=== PATIENT | male | born 1955 | race Caucasian/White ===

== ENCOUNTER 2023-08-27 19:54 | Inpatient (IN) ==
[2023-08-27] MEDS ORDERED: ONDANSETRON INJ 2 MG/ML 2 ML VIAL IV STA (20:10)
[2023-08-27] MEDS ORDERED: SODIUM CHLORIDE 0.9% 1,000 ML IV STA (20:10)
--- NOTE | 2023-08-27 20:13 | Emergency Department Note ---
Impression & Plan HOMERO (acute kidney injury), A-fib, Gastroenteritis, Elevated lactic acid level, Acute hyponatremia ED Provider Note Provider: Cedric Lemus MD DATE OF SERVICE: 08/27/2023 CHIEF COMPLAINT: Abdominal pain, nausea and vomiting, weakness, diarrhea HISTORY OF PRESENT ILLNESS: Patient is a 68-year-old gentleman history of arthritis as well as atrial fibrillation on Eliquis presenting here at the behest of his daughter today for evaluation. Patient evidently developed 2 days ago pain in the mid to upper abdomen. Radiates to the back. Has associated nausea as well as some vomiting. Has had some nonbloody diarrhea. Denies falls. Denies sick contact. No fevers reported. Denies difficulty breathing or chest pain. Feels lightheaded and weak however. Daughter came up from [place] and convinced him to come to the ER tonight. PAST MEDICAL HISTORY: As noted above MEDICATIONS: Reviewed home medications includes Humira SOCIAL HISTORY: PHYSICAL EXAM: GENERAL: alert and oriented in no acute distress on stretcher but fatigued in appearance and somewhat pale. Head: normocephalic and atraumatic EYES: No injection, discharge or icterus. NECK: Trachea midline. Supple. ENT: Mucous membranes pink and moist. LUNGS: Airway patent. No retractions or tachypnea HEART: Regular rate and rhythm. No chest wall tenderness ABDOMEN: Soft with some mild to moderate epigastric discomfort. No lower abdominal discomfort. SKIN: Acyanotic, somewhat cool however with dry skin. EXTREMITIES: Without swelling, tenderness or deformity NEUROLOGICAL: No focal deficits. No aphasia. No facial droop or slurred speech. EK bpm atrial fibrillation. QTc 436. No acute ST segment elevation with some slight lateral ST depression. CONTINUOUS CARDIAC MONITORING: was ordered and showed a heart rate of 100s-110s bpm in atrial fibrillation 1 view chest x-ray per my interpretation: No evidence of significant effusion, pulmonary edema, pneumonia, pneumothorax, or cardiomegaly. Patient's laboratory studies and imaging reviewed. Differential includes Appendicitis, obstruction, mesenteric ischemia, aortic pathology, inflammatory bowel disease, renal colic, PUD, pancreatitis, biliary pathology, hernia, volvulus, constipation, as well as other pathologies. IMPRESSION/MEDICAL DECISION MAKING: Patient with some mid upper abdominal discomfort. Several days of GI symptoms with nausea vomiting and diarrhea. Reportedly nonbloody. Somewhat hypotensive in triage but improved upon evaluation in the room. Pale and weak in appearance. [id number] blood work obtained concerning for significantly elevated creatinine. Formal labs pending. Sent cultures. Lactic completed with an elevated lactate of 3.3. Given IV fluid hydration upon arrival and 2 L of normal saline ordered. Plan for a contrasted CT scan but with the elevated creatinine on i-STAT labs, switch to a noncontrast CT scan. Labs returning showed no evidence of significant anemia or leukocytosis which is somewhat reassuring against severe sepsis or GI bleed. Formal chemistries returned with a sodium of 128, potassium of 5.6, anion gap of 17, BUN of 48, creatinine of 3.95 with normal AST and ALT. Normal bilirubin 0.9. Normal lipase. Avoiding aggressive rate control as the patient seems significantly dehydrated. Do not see evidence on imaging of significant urine retention and do not feel Gutierrez is emergently began at this time as I do not see a postobstructive finding. Troponin normal. Did complete a chest x-ray as he has some borderline oxygen saturations. Does not seem that consistent with pneumonia. Very distant former smoker. Discussed with patient and family findings. Discussed with the hospitalist for further care here which family is agreeable to. Believe his illnesses likely driven primarily by dehydration and gastroenteritis and doubt a systemic sepsis picture at this time. DIAGNOSIS: Acute kidney injury, A-fib, gastroenteritis, hyponatremia DISPOSITION: Hospitalist will evaluate Patient was agreeable with this plan. Past Med/Surg History Medical History (Updated 08/27/23 @ 23:24 by Cedric Lemus M.D.) A-fib HTN (hypertension) Rheumatoid arthritis Surgical History (Updated 08/27/23 @ 22:14 by Sariah Knox DO) No significant past surgical history Family History (Updated 08/27/23 @ 22:14 by Sariah Knox DO) Other No significant family history Social History (Updated 08/27/23 @ 22:14 by Sariah Knox DO) Smoking Status: Former smoker Tobacco Type: Cigarettes Hx Alcohol Use: Yes Hx Substance Use: No Preferred Language: [place] Feels Safe at Home: Yes Allergies Allergies Allergy/AdvReac Type Severity Reaction Status Date / Time No Known Allergies Allergy Unverified 08/27/23 21:13 Home Meds Home Medications Medication Instructions Recorded Confirmed adalimumab 40 mg/0.8 mL 40 mg subcut UD 01/17/23 08/27/23 subcutaneous pen kit (Humira Pen) lisinopril 40 mg tablet 40 mg PO DAILY 01/17/23 08/27/23 prednisone 5 mg tablet 5 mg PO DAILY 01/17/23 08/27/23 sertraline 50 mg tablet 50 mg PO DAILY 01/17/23 08/27/23 amlodipine 10 mg tablet 10 mg PO DAILY 08/27/23 08/27/23 apixaban 5 mg tablet (Eliquis) 5 mg PO BID 08/27/23 08/27/23 metoprolol succinate 100 mg 100 mg PO BID 08/27/23 08/27/23 tablet,extended release 24 hr Results & Data (ED) Vital Signs Vital Signs - 24 hr 08/27/23 19:58 08/27/23 20:06 08/27/23 20:10 Temperature Temperature Source Pulse Rate 100 H 102 H Pulse Rate [Apical] 99 H Pulse Rate from SpO2 Sensor Pulse Rhythm Irregular Pulse Rhythm [Apical] Irregular Respiratory Rate 18 20 22 Respiratory Effort / Characteristics Non-Labored Spontaneous Respiratory Depth Normal Respiratory Pattern Regular Blood Pressure 76/58 L Blood Pressure [Right Arm] 106/86 Blood Pressure Mean 64 Blood Pressure Mean [Right Arm] 92 Blood Pressure Position Sitting Blood Pressure Position [Right Arm] Sitting Pulse Oximetry 96 94 95 Oxygen Delivery Method Room Air Room Air Room Air Oxygen Flow Rate Sepsis Recent Fever Within 48 Hours No Sepsis New/Unexplained Change in Mental Status N/A Sepsis Action Taken by Nursing Physician Notified Oxygen Flow Rate - Titration Pulse Oximetry Post Tiitration 08/27/23 20:44 08/27/23 20:52 08/27/23 21:36 Temperature 36.6 C 36.6 C Temperature Source Rectal Rectal Pulse Rate Pulse Rate [Apical] 115 H 112 H Pulse Rate from SpO2 Sensor Pulse Rhythm Pulse Rhythm [Apical] Irregular Irregular Respiratory Rate 20 20 Respiratory Effort / Characteristics Non-Labored Non-Labored Respiratory Depth Normal Normal Respiratory Pattern Regular Regular Blood Pressure Blood Pressure [Right Arm] 84/61 L 109/69 Blood Pressure Mean Blood Pressure Mean [Right Arm] 68 82 Blood Pressure Position Blood Pressure Position [Right Arm] Sitting Pulse Oximetry 96 94 88 L Oxygen Delivery Method Room Air Room Air Room Air Nasal Cannula Oxygen Flow Rate Sepsis Recent Fever Within 48 Hours Sepsis New/Unexplained Change in Mental Status Sepsis Action Taken by Nursing Oxygen Flow Rate - Titration 2 Pulse Oximetry Post Tiitration 93 08/27/23 22:30 08/27/23 21:00 08/27/23 21:30 Temperature Temperature Source Pulse Rate 109 H 101 H Pulse Rate [Apical] Pulse Rate from SpO2 Sensor 108 H 96 H Pulse Rhythm Pulse Rhythm [Apical] Irregular Respiratory Rate 19 23 Respiratory Effort / Characteristics Respiratory Depth Respiratory Pattern Blood Pressure 107/67 103/65 Blood Pressure [Right Arm] Blood Pressure Mean 80 77 Blood Pressure Mean [Right Arm] Blood Pressure Position Blood Pressure Position [Right Arm] Pulse Oximetry 94 96 Oxygen Delivery Method Nasal Cannula Oxygen Flow Rate 2 Sepsis Recent Fever Within 48 Hours Sepsis New/Unexplained Change in Mental Status Sepsis Action Taken by Nursing Oxygen Flow Rate - Titration Pulse Oximetry Post Tiitration 08/27/23 22:00 08/27/23 22:30 Temperature Temperature Source Pulse Rate 106 H 99 H Pulse Rate [Apical] Pulse Rate from SpO2 Sensor 104 H 96 H Pulse Rhythm Pulse Rhythm [Apical] Respiratory Rate 19 19 Respiratory Effort / Characteristics Respiratory Depth Respiratory Pattern Blood Pressure 123/81 128/84 Blood Pressure [Right Arm] Blood Pressure Mean 95 98 Blood Pressure Mean [Right Arm] Blood Pressure Position Blood Pressure Position [Right Arm] Pulse Oximetry 96 95 Oxygen Delivery Method Nasal Cannula Nasal Cannula Oxygen Flow Rate 2 2 Sepsis Recent Fever Within 48 Hours Sepsis New/Unexplained Change in Mental Status Sepsis Action Taken by Nursing Oxygen Flow Rate - Titration Pulse Oximetry Post Tiitration Laboratory Data 08/27/23 20:08 08/27/23 20:08 Lab Results 08/27/23 08/27/23 08/27/23 Range/Units 20:08 20:08 20:08 WBC 7.16 (4.8-10.8) K/ul RBC 5.27 (4.70-6.10) M/uL Hgb 15.5 (14.0-18.0) g/dl POC Hgb (14.0-18.0) g/dl Hct 48.0 (42.0-52.0) % POC Hct (42-52) % MCV 91.1 (80.0-100.0) fL MCH 29.4 (25.0-34.0) pg MCHC 32.3 (32.0-36.0) g/dL RDW Std Deviation 63.1 H (36.4-46.3) fL RDW Coeff of Alana 19.2 H (11.5-14.5) % Plt Count 539 H (130-400) K/uL MPV 9.2 L (9.4-12.4) fL Immature Gran % (Auto) 0.8 % Neut % (Auto) 75.2 % Lymph % (Auto) 15.2 % Maries % (Auto) 5.7 % Eos % (Auto) 2.5 % Baso % (Auto) 0.6 % Neut # (Auto) 5.38 (1.40-6.50) K/uL Lymph # (Auto) 1.09 L (1.20-3.40) K/uL Maries # (Auto) 0.41 (0.11-0.59) K/uL Eos # (Auto) 0.18 (0.00-0.50) K/uL Baso # (Auto) 0.04 (0.00-0.20) K/uL Immature Gran # (Auto) 0.06 (0.01-0.20) K/uL PT 12.3 H (9.0-12.0) Seconds INR 1.1 (0.9-1.1) POC Sodium (135-144) mmol/L Sodium 128 L (136-145) mmol/L POC Potassium (3.3-5.0) mmol/L Potassium 5.6 H (3.5-5.1) mmol/L POC Chloride (101-112) mmol/L Chloride 92 L (98-107) mmol/L Carbon Dioxide 19 L (21-32) mmol/L POC Total CO2 (24-31) mmol/L Anion Gap 17 H (3-11) POC Anion Gap (16-25) mmol/L POC BUN (7-18) mg/dl BUN 48 H (6-23) mg/dl Creatinine 3.95 H (0.6-1.4) mg/dl POC Creatinine (0.6-1.3) mg/dl Est Cr Clr Drug Dosing Not Reportable Est GFR ( Amer) 16.7 ml/min Est GFR (Non-Af Amer) 14.4 ml/min BUN/Creatinine Ratio 12.2 (10-20) Glucose 164 H (70-99(Fasting)) mg/dl POC Glucose (other) (70-99) mg/dl Lactate (0.4-2.0) mmol/L Calcium 10.1 (8.6-10.3) mg/dl POC Ioniz Calcium Hakan (1.12-1.32) mmol/l Total Bilirubin 0.9 (0.2-1.0) mg/dl AST 16 (13-39) U/L ALT 19 (7-52) U/L Alkaline Phosphatase 353 H (34-104) U/L Troponin I High Sens 6.8 (0-20) pg/ml Total Protein 11.9 H (6.0-8.3) gm/dl Albumin 4.6 (3.4-5.0) gm/dl Globulin 7.3 H (2.5-4.0) gm/dl Albumin/Globulin Ratio 0.6 L (0.9-2) Lipase 25 (11-82) U/L SARS-CoV-2, RNA, NAAT (NEGATIVE) 08/27/23 08/27/23 08/27/23 Range/Units 20:08 20:13 20:40 WBC (4.8-10.8) K/ul RBC (4.70-6.10) M/uL Hgb (14.0-18.0) g/dl POC Hgb 17.7 (14.0-18.0) g/dl Hct (42.0-52.0) % POC Hct 52 (42-52) % MCV (80.0-100.0) fL MCH (25.0-34.0) pg MCHC (32.0-36.0) g/dL RDW Std Deviation (36.4-46.3) fL RDW Coeff of Alana (11.5-14.5) % Plt Count (130-400) K/uL MPV (9.4-12.4) fL Immature Gran % (Auto) % Neut % (Auto) % Lymph % (Auto) % Maries % (Auto) % Eos % (Auto) % Baso % (Auto) % Neut # (Auto) (1.40-6.50) K/uL Lymph # (Auto) (1.20-3.40) K/uL Maries # (Auto) (0.11-0.59) K/uL Eos # (Auto) (0.00-0.50) K/uL Baso # (Auto) (0.00-0.20) K/uL Immature Gran # (Auto) (0.01-0.20) K/uL PT (9.0-12.0) Seconds INR (0.9-1.1) POC Sodium 133 L (135-144) mmol/L Sodium (136-145) mmol/L POC Potassium 5.8 H (3.3-5.0) mmol/L Potassium (3.5-5.1) mmol/L POC Chloride 101 (101-112) mmol/L Chloride (98-107) mmol/L Carbon Dioxide (21-32) mmol/L POC Total CO2 23 L (24-31) mmol/L Anion Gap (3-11) POC Anion Gap 15.0 L (16-25) mmol/L POC BUN 47 H (7-18) mg/dl BUN (6-23) mg/dl Creatinine (0.6-1.4) mg/dl POC Creatinine 4.8 H* (0.6-1.3) mg/dl Est Cr Clr Drug Dosing Est GFR ( Amer) ml/min Est GFR (Non-Af Amer) ml/min BUN/Creatinine Ratio (10-20) Glucose (70-99(Fasting)) mg/dl POC Glucose (other) 167 H (70-99) mg/dl Lactate 3.3 H* (0.4-2.0) mmol/L Calcium (8.6-10.3) mg/dl POC Ioniz Calcium Hakan 1.02 L (1.12-1.32) mmol/l Total Bilirubin (0.2-1.0) mg/dl AST (13-39) U/L ALT (7-52) U/L Alkaline Phosphatase (34-104) U/L Troponin I High Sens (0-20) pg/ml Total Protein (6.0-8.3) gm/dl Albumin (3.4-5.0) gm/dl Globulin (2.5-4.0) gm/dl Albumin/Globulin Ratio (0.9-2) Lipase (11-82) U/L SARS-CoV-2, RNA, NAAT NEGATIVE (NEGATIVE) Administered Medications Discontinued Medications Fentanyl Citrate (Fentanyl Citrate Pf 100 Mcg/2 Ml Vial) 25 mcg IV NOW STA Stop: 08/27/23 20:45 Last Admin: 08/27/23 20:48 Dose: 25 mcg Documented By: QGV Fentanyl Citrate (Fentanyl Citrate Pf 100 Mcg/2 Ml Vial) 50 mcg IV NOW STA Stop: 08/27/23 21:19 Last Admin: 08/27/23 21:30 Dose: 50 mcg Documented By: QGV Sodium Chloride (Nss) 1,000 mls @ 999 mls/hr IV .Q1H1M STA Stop: 08/27/23 21:10 Last Infusion: 08/27/23 21:30 Dose: 0 mls/hr Documented By: Admin: 08/27/23 20:15 Dose: 999 mls/hr Documented By: QGV Sodium Chloride (Nss) 1,000 mls @ 999 mls/hr IV .Q1H1M ONE Stop: 08/27/23 21:15 Last Infusion: 08/27/23 21:30 Dose: 0 mls/hr Documented By: Admin: 08/27/23 20:32 Dose: 999 mls/hr Documented By: QGV Ondansetron HCl (Ondansetron Inj 2 Mg/Ml 2 Ml Vial) 4 mg IV NOW STA Stop: 08/27/23 20:11 Last Admin: 08/27/23 20:15 Dose: 4 mg Documented By: QGV Imaging Data Radiologist's Impression: Abdomen/Pelvis CT 08/27/23 20:16 Exam(s): CT ABDOMEN + PELVIS Without Contrast EXAM: CT Abdomen and Pelvis Without Intravenous Contrast CLINICAL HISTORY: Reason for exam: abd pain, mid, n/v/d. TECHNIQUE: Axial computed tomography images of the abdomen and pelvis without intravenous contrast. CTDI is 25.57 mGy and DLP is 1357.27 mGy-cm. Automated exposure control was utilized for the study. A dose lowering technique was utilized adhering to the principles of ALARA. COMPARISON: No relevant prior studies available. FINDINGS: Lung bases: Atelectasis at the lung bases. ABDOMEN: Liver: Unremarkable. Gallbladder and bile ducts: Cholelithiasis without cholecystitis. Pancreas: Unremarkable. Spleen: Unremarkable. Adrenals: Unremarkable. Kidneys and ureters: Unremarkable. No obstructing stones. No hydronephrosis. Stomach and bowel: Liquid stool within the colon suggestive of a nonspecific diarrheal illness. PELVIS: Appendix: No findings to suggest acute appendicitis. Bladder: Unremarkable. Reproductive: Unremarkable as visualized. ABDOMEN and PELVIS: Intraperitoneal space: Unremarkable. No free air. No significant fluid collection. Bones/joints: No acute fracture. Soft tissues: Unremarkable. Vasculature: Unremarkable. Lymph nodes: Unremarkable. IMPRESSION: 1. Liquid stool within the colon suggestive of a nonspecific diarrheal illness. 2. Cholelithiasis without cholecystitis. Electronically signed by: Bandar Beebe MD 08/27/23 21:30 PM Discharge Plan Visit Data Chief Complaint: Illness Stated Complaint: ABDOMINAL PAIN, CHANGE IN MENTAL STATUS ED Provider: Cedric Lemus Discharge Problem: HOMERO (acute kidney injury), A-fib, Gastroenteritis, Elevated lactic acid level, Acute hyponatremia Patient Disposition: Being Evaluated by Hospitalist Condition: Fair Discharge Instructions Interventions: ED Discharge Assessment Last Done: 08/27/23 23:21 Forms Stand Alone Forms: My [facility] [employer] Prescriptions Prescriptions: No Action Eliquis 5 mg tablet 5 mg PO BID metoprolol succinate 100 mg tablet extended release 24 hr 100 mg PO BID amlodipine 10 mg tablet 10 mg PO DAILY prednisone 5 mg tablet 5 mg PO DAILY lisinopril 40 mg tablet 40 mg PO DAILY sertraline 50 mg tablet 50 mg PO DAILY Humira Pen 40 mg/0.8 mL pen injector kit 40 mg SUBCUT UD Referrals Referrals: Tali Doe PA-C [Primary Care Provider] -
[2023-08-27] MEDS ORDERED: SODIUM CHLORIDE 0.9% 1,000 ML IV ONE (20:15)
[2023-08-27 20:23] LABS: Basophils # (auto) 0.04 K/uL (0.00-0.20); Basophils % (auto) 0.6 %; Eosinophils # (auto) 0.18 K/uL (0.00-0.50); Eosinophils % (auto) 2.5 %; Hemoglobin 15.5 g/dl (14.0-18.0); Immature Granulocytes # (auto) 0.06 K/uL (0.01-0.20); Immature Granulocytes % (auto) 0.8 %; Lymphocytes # (auto) 1.09 K/uL (1.20-3.40); Lymphocytes % (auto) 15.2 %; Mean Corpuscular Hemoglobin 29.4 pg (25.0-34.0); Mean Corpuscular Hgb Conc 32.3 g/dL (32.0-36.0); Mean Corpuscular Volume 91.1 fL (80.0-100.0); Mean Platelet Volume 9.2 fL (9.4-12.4); Monocytes # (auto) 0.41 K/uL (0.11-0.59); Monocytes % (auto) 5.7 %; Neutrophils # (auto) 5.38 K/uL (1.40-6.50); Neutrophils % (auto) 75.2 %; Platelet Count 539 K/uL (130-400); RDW Coefficient of Variation 19.2 % (11.5-14.5); RDW Standard Deviation 63.1 fL (36.4-46.3); Red Blood Count 5.27 M/uL (4.70-6.10); White Blood Count 7.16 K/ul (4.8-10.8)
[2023-08-27 20:26] LABS: iSTAT Creatinine 4.8 mg/dl (0.6-1.3); iSTAT Hemoglobin 17.7 g/dl (14.0-18.0); iSTAT Ionized Calcium 1.02 mmol/l (1.12-1.32); iSTAT Potassium 5.8 mmol/L (3.3-5.0)
[2023-08-27 20:38] LABS: Alanine Aminotransferase 19 U/L (7-52); Albumin Globulin Ratio 0.6 (0.9-2); Albumin Level 4.6 gm/dl (3.4-5.0); Alkaline Phosphatase 353 U/L (34-104); Anion Gap 17 (3-11); Aspartate Aminotransferase 16 U/L (13-39); BUN Creatinine Ratio 12.2 (10-20); Bilirubin,Total 0.9 mg/dl (0.2-1.0); Blood Urea Nitrogen 48 mg/dl (6-23); Calcium 10.1 mg/dl (8.6-10.3); Carbon Dioxide 19 mmol/L (21-32); Chloride 92 mmol/L (98-107); Est GFR (African American) 16.7 ml/min; Est GFR (Non-African American) 14.4 ml/min; Globulin 7.3 gm/dl (2.5-4.0); Glucose 164 mg/dl (70-99(Fasting)); Lipase 25 U/L (11-82); Potassium 5.6 mmol/L (3.5-5.1); Sodium 128 mmol/L (136-145); Total Protein 11.9 gm/dl (6.0-8.3)
[2023-08-27] MEDS ORDERED: fentaNYL citrate PF 100 MCG/2 ML VIAL IV STA ×2 (20:44→21:18)
[2023-08-27 20:45] LABS: Troponin I High Sensitivity 6.8 pg/ml (0-20)
[2023-08-27 20:50] LABS: INR 1.1 (0.9-1.1); Prothrombin Time 12.3 Seconds (9.0-12.0)
--- NOTE | 2023-08-27 21:31 | CT Scan Report ---
Exam(s): CT ABDOMEN + PELVIS Without Contrast EXAM: CT Abdomen and Pelvis Without Intravenous Contrast CLINICAL HISTORY: Reason for exam: abd pain, mid, n/v/d. TECHNIQUE: Axial computed tomography images of the abdomen and pelvis without intravenous contrast. CTDI is 25.57 mGy and DLP is 1357.27 mGy-cm. Automated exposure control was utilized for the study. A dose lowering technique was utilized adhering to the principles of ALARA. COMPARISON: No relevant prior studies available. FINDINGS: Lung bases: Atelectasis at the lung bases. ABDOMEN: Liver: Unremarkable. Gallbladder and bile ducts: Cholelithiasis without cholecystitis. Pancreas: Unremarkable. Spleen: Unremarkable. Adrenals: Unremarkable. Kidneys and ureters: Unremarkable. No obstructing stones. No hydronephrosis. Stomach and bowel: Liquid stool within the colon suggestive of a nonspecific diarrheal illness. PELVIS: Appendix: No findings to suggest acute appendicitis. Bladder: Unremarkable. Reproductive: Unremarkable as visualized. ABDOMEN and PELVIS: Intraperitoneal space: Unremarkable. No free air. No significant fluid collection. Bones/joints: No acute fracture. Soft tissues: Unremarkable. Vasculature: Unremarkable. Lymph nodes: Unremarkable. IMPRESSION: 1. Liquid stool within the colon suggestive of a nonspecific diarrheal illness. 2. Cholelithiasis without cholecystitis. Electronically signed by: Bandar Beebe MD 08/27/23 21:30 PM
--- NOTE | 2023-08-27 21:57 | History & Physical Report ---
Date of Service August 27, 2023 Assessment & Plan (1) Gastroenteritis: Plan: 68yo male with 2 days of nausea, vomiting and diarrhea. Patient appears clinically dry on exam as well as labs. CT consistent with diarrheal illness. -Admit to medical -Check stool PCR for viral/bacterial causes -Check stool c. diff -Hydration with LR at 125mL/hr x 2L -Monitor electrolytes -Morphine as needed for abdominal pain -Zofran as needed for nausea (2) HOMERO (acute kidney injury): Plan: Patient with HOMERO. BUN=48, Cr=3.95. Last bloodwork on record from 01/17/23 revealed normal renal function with BUN of 22 and Cr of 1. Suspect multifactorial - volume depletion in setting of vomiting and diarrhea, decreased oral intake as well as medication effects - patient on Lisinopril for hypertension. He does have a gapped metabolic acidosis with AG of 17, HCO3 of 19. K is mildly elevated at 5.6. No EKG changes of hyperkalemia. -Check urine Na and Cr -Continue IV hydration with LR at 125mL/hr x 2L -Repeat chemistry in AM -Avoid nephrotoxic agents - hold Lisinopril for now -Renal dosing where needed (3) Rheumatoid arthritis: Plan: Chronic RA. Pain well controlled at present -Continue Prednisone 5mg po daily (4) HTN (hypertension): Plan: Chronic. Blood pressure 109/69 currently -Hold Amlodipine with borderline blood pressure -Hold Lisinopril in setting of HOMERO -Continue Metoprolol 100mg po BID -Continue to monitor (5) A-fib: Plan: Rate control. Anticoagulated on Eliquis -Continue Metoprolol 100mg po BID -Continue Eliquis - reduce dose to 2.5mg po BID in setting of renal compromise F/E/N - LR at 125mL/hr x 2L, monitor electrolytes, regular diet as tolerated Ppx - On Eliquis anticoagulation Code - Conditional - no CPR, ok with intubation and ventilation for brief treatment Dispo - Admit to medical with telemetry History of Present Illness Chief Complaint: nausea, vomiting, diarrhea Primary Care Provider: Tali Doe Grant Quinonez is a 68yo male with history of atrial fibrillation on Eliquis anticoagulation, RA on Humira and chronic Prednisone 5mg daily as well as HTN presenting with 2 days of nausea, vomiting and diarrhea. Patient reports sudden onset on nausea with 2 episodes of non-bloody/non-bilious vomiting and ongoing watery non-bloody diarrhea. Patient also with upper abdominal pain, 8/10 in severity. He has not been eating or drinking well over the last two days. He reports generalized weakness and fatigue. Patient has been taking Pepto Bismol at home with no relief. He denies sick contacts, recent travel. [place]. No recent antibiotics, hospitalizations or ingestion of raw/undercooked/restaurant food. Patient denies fever, chills, chest pain, cough, SOB, dysuria. No additional complaints at this time. In the ER he is afebrile, tachycardic otherwise HD stable. Saturations of 88% on room air. Placed on NC with improvement. ER Couse: NSS x 2L Zofran Allergies Allergy/AdvReac Type Severity Reaction Status Date / Time No Known Allergies Allergy Unverified 08/27/23 21:13 Home Medications Medication Instructions Recorded Confirmed Type adalimumab 40 mg/0.8 mL 40 mg subcut UD 01/17/23 08/27/23 History subcutaneous pen kit (Humira Pen) lisinopril 40 mg tablet 40 mg PO DAILY 01/17/23 08/27/23 History prednisone 5 mg tablet 5 mg PO DAILY 01/17/23 08/27/23 History sertraline 50 mg tablet 50 mg PO DAILY 01/17/23 08/27/23 History amlodipine 10 mg tablet 10 mg PO DAILY 08/27/23 08/27/23 History apixaban 5 mg tablet (Eliquis) 5 mg PO BID 08/27/23 08/27/23 History metoprolol succinate 100 mg 100 mg PO BID 08/27/23 08/27/23 History tablet,extended release 24 hr Past Med/Surg History Medical History (Updated 08/27/23 @ 22:13 by Sariah Knox DO) A-fib HTN (hypertension) Rheumatoid arthritis Surgical History (Updated 08/27/23 @ 22:14 by Sariah Knox DO) No significant past surgical history Family History (Updated 08/27/23 @ 22:14 by Sariah Knox DO) Other No significant family history Social History (Updated 08/27/23 @ 22:14 by Sariah Knox DO) Smoking Status: Former smoker Tobacco Type: Cigarettes Hx Alcohol Use: Yes Hx Substance Use: No Preferred Language: Albanian Feels Safe at Home: Yes Review of Systems Review of Systems: All systems reviewed & are unremarkable except as noted in HPI & below Physical Exam Physical Exam: General: patient resting comfortably, NAD, non-toxic in appearance, AA&O x 4 Skin: warm, dry, intact, no rashes or lesions HEENT: NC/AT, PERRL, EOMI, anicteric sclera, conjunctiva without injection, external ear normal to inspection and nontender, nares patent, dry mucus membranes, dentition intact, no oropharyngeal lesions, neck supple, trachea midline, no LAD, no thyromegaly, no JVD Heart: +S1/S2, irregularly irregular, no m/r/g Lungs: equal air entry bilaterally, no rales/rhonchi/wheezes Abd: +BS, soft, NT/ND, no masses/organomegaly/ascites Ext: warm, 2+ pulses in UE/LE bilaterally, no clubbing/cyanosis or edema, right wrist swelling Neuro: nonfocal, patient AA&O x 4, speech intact, no facial droop, moving all extremities on command with equal strength 5/5 Results & Data Results & Data Vital Signs (Past 12 Hours) Vital Signs Temp Pulse Pulse Resp BP BP Pulse Ox 08/27/23 21:36 88 L 08/27/23 20:52 36.6 C 112 H 20 109/69 94 08/27/23 20:44 36.6 C 115 H 20 84/61 L 96 08/27/23 20:10 102 H 22 95 08/27/23 20:06 99 H 20 106/86 94 08/27/23 19:58 100 H 18 76/58 L 96 O2 Del Method 08/27/23 21:36 Room Air, Nasal Cannula 08/27/23 20:52 Room Air 08/27/23 20:44 Room Air 08/27/23 20:10 Room Air 08/27/23 20:06 Room Air 08/27/23 19:58 Room Air Laboratory Results Laboratory Results WBC 7.16 K/ul (4.8-10.8) 08/27/23 20:08 RBC 5.27 M/uL (4.70-6.10) 08/27/23 20:08 Hgb 15.5 g/dl (14.0-18.0) 08/27/23 20:08 POC Hgb 17.7 g/dl (14.0-18.0) 08/27/23 20:13 Hct 48.0 % (42.0-52.0) 08/27/23 20:08 POC Hct 52 % (42-52) 08/27/23 20:13 MCV 91.1 fL (80.0-100.0) 08/27/23 20:08 MCH 29.4 pg (25.0-34.0) 08/27/23 20:08 MCHC 32.3 g/dL (32.0-36.0) 08/27/23 20:08 RDW Std Deviation 63.1 fL (36.4-46.3) H 08/27/23: RDW Coeff of Alana 19.2 % (11.5-14.5) H 08/27/23 20:08 Plt Count 539 K/uL (130-400) H 08/27/23 20: MPV 9.2 fL (9.4-12.4) L 08/27/23 20:08 Immature Gran % (Auto) 0.8 % 08/27/23 20: Neut % (Auto) 75.2 % 08/27/23 20:08 Lymph % (Auto) 15.2 % 08/27/23 20:08 Valley % (Auto) 5.7 % 08/27/23 20:08 Eos % (Auto) 2.5 % 08/27/23 20:08 Baso % (Auto) 0.6 % 08/27/23: Neut # (Auto) 5.38 K/uL (1.40-6.50) 08/27/23 20:08 Lymph # (Auto) 1.09 K/uL (1.20-3.40) L 08/27/23 20:08 Valley # (Auto) 0.41 K/uL (0.11-0.59) 08/27/23 20:08 Eos # (Auto) 0.18 K/uL (0.00-0.50) 08/27/23 20:08 Baso # (Auto) 0.04 K/uL (0.00-0.20) 08/27/23 20:08 Immature Gran # (Auto) 0.06 K/uL (0.01-0.20) 08/27/23 20:08 PT 12.3 Seconds (9.0-12.0) H 08/27/23 20:08 INR 1.1 (0.9-1.1) 08/27/23 20:08 POC Sodium 133 mmol/L (135-144) L 08/27/23 20:13 Sodium 128 mmol/L (136-145) L 08/27/23 20:08 POC Potassium 5.8 mmol/L (3.3-5.0) H 08/27/23 20:13 Potassium 5.6 mmol/L (3.5-5.1) H 08/27/23 20:08 POC Chloride 101 mmol/L (101-112) 08/27/23 20:13 Chloride 92 mmol/L (98-107) L 08/27/23 20:08 Carbon Dioxide 19 mmol/L (21-32) L 08/27/23 20:08 POC Total CO2 23 mmol/L (24-31) L 08/27/23 20:13 Anion Gap 17 (3-11) H 08/27/23 20:08 POC Anion Gap 15.0 mmol/L (16-25) L 08/27/23 20:13 POC BUN 47 mg/dl (7-18) H 08/27/23 20:13 BUN 48 mg/dl (6-23) H 08/27/23 20:08 Creatinine 3.95 mg/dl (0.6-1.4) H 08/27/23 20:08 POC Creatinine 4.8 mg/dl (0.6-1.3) H* 08/27/23 20:13 Est Cr Clr Drug Dosing Not Reportable 08/27/23 20:08 Est GFR ( Amer) 16.7 ml/min 08/27/23 20:08 Est GFR (Non-Af Amer) 14.4 ml/min 08/27/23 20:08 BUN/Creatinine Ratio 12.2 (10-20) 08/27/23 20:08 Glucose 164 mg/dl (70-99(Fasting)) H 08/27/23 20:08 POC Glucose (other) 167 mg/dl (70-99) H 08/27/23 20:13 Lactate 3.3 mmol/L (0.4-2.0) H* 08/27/23 20:08 Calcium 10.1 mg/dl (8.6-10.3) 08/27/23 20:08 POC Ioniz Calcium Hakan 1.02 mmol/l (1.12-1.32) L 08/27/23 20:13 Total Bilirubin 0.9 mg/dl (0.2-1.0) 08/27/23 20:08 AST 16 U/L (13-39) 08/27/23 20:08 ALT 19 U/L (7-52) 08/27/23 20:08 Alkaline Phosphatase 353 U/L (34-104) H 08/27/23 20:08 Troponin I High Sens 6.8 pg/ml (0-20) 08/27/23 20:08 Total Protein 11.9 gm/dl (6.0-8.3) H 08/27/23 20:08 Albumin 4.6 gm/dl (3.4-5.0) 08/27/23 20:08 Globulin 7.3 gm/dl (2.5-4.0) H 08/27/23 20:08 Albumin/Globulin Ratio 0.6 (0.9-2) L 08/27/23 20:08 Lipase 25 U/L (11-82) 08/27/23 20:08 SARS-CoV-2, RNA, NAAT NEGATIVE (NEGATIVE) 08/27/23 20:40 Impressions Abdomen/Pelvis CT 08/27/23 20:16 Exam(s): CT ABDOMEN + PELVIS Without Contrast EXAM: CT Abdomen and Pelvis Without Intravenous Contrast CLINICAL HISTORY: Reason for exam: abd pain, mid, n/v/d. TECHNIQUE: Axial computed tomography images of the abdomen and pelvis without intravenous contrast. CTDI is 25.57 mGy and DLP is 1357.27 mGy-cm. Automated exposure control was utilized for the study. A dose lowering technique was utilized adhering to the principles of ALARA. COMPARISON: No relevant prior studies available. FINDINGS: Lung bases: Atelectasis at the lung bases. ABDOMEN: Liver: Unremarkable. Gallbladder and bile ducts: Cholelithiasis without cholecystitis. Pancreas: Unremarkable. Spleen: Unremarkable. Adrenals: Unremarkable. Kidneys and ureters: Unremarkable. No obstructing stones. No hydronephrosis. Stomach and bowel: Liquid stool within the colon suggestive of a nonspecific diarrheal illness. PELVIS: Appendix: No findings to suggest acute appendicitis. Bladder: Unremarkable. Reproductive: Unremarkable as visualized. ABDOMEN and PELVIS: Intraperitoneal space: Unremarkable. No free air. No significant fluid collection. Bones/joints: No acute fracture. Soft tissues: Unremarkable. Vasculature: Unremarkable. Lymph nodes: Unremarkable. IMPRESSION: 1. Liquid stool within the colon suggestive of a nonspecific diarrheal illness. 2. Cholelithiasis without cholecystitis. Electronically signed by: Bandar Beebe MD 08/27/23 21:30 PM Code Status & VTE Plan VTE Prophylaxis Plan VTE Prophylaxis will be ordered: Yes PG Care Time/CCT Total # of Minutes Spent Total Time Spent with Patient: Total time spent is greater than 50% in coordination of care (as documented) at patient's floor/unit and/or counseling patient: Coding Level of Care Code 81564 INT INP/OBS CARE 3/75MIN Diagnoses Gastroenteritis K52.9 HOMERO (acute kidney injury) N17.9 Rheumatoid arthritis M06.9 HTN (hypertension) I10 A-fib I48.91
[2023-08-27] MEDS ORDERED: CALCIUM CARBONATE 500 MG CHEWABLE TAB PO STA (23:32)
[2023-08-28] MEDS ORDERED: ONDANSETRON INJ 2 MG/ML 2 ML VIAL IV PRN (00:29)
[2023-08-28] MEDS ORDERED: MoRPHine SULFATE 2 MG/ML CARP IV PRN ×2 (00:29)
[2023-08-28] MEDS ORDERED: ACETAMINOPHEN 325 MG TAB PO PRN (00:29)
[2023-08-28] MEDS: LACTATED RINGER'S 1,000 ML IV SCH ×2 (01:17→09:14)
[2023-08-28 02:16] LABS: Adenovirus F 40/41 PCR Not Detected (NotDetected); Astrovirus PCR Not Detected (NotDetected); Campylobacter PCR Not Detected (NotDetected); Cryptosporidium PCR Not Detected (NotDetected); Cyclospora cayetanensis PCR Not Detected (NotDetected); Entamoeba histolytica PCR Not Detected (NotDetected); Enteroaggregative E.coli(EAEC) Not Detected (NotDetected); Enteropathogenic E.coli (EPEC) Not Detected (NotDetected); Enterotoxigenic E.coli (ETEC) Not Detected (NotDetected); Giardia lamblia PCR Not Detected (NotDetected); Norovirus GI/GII PCR Not Detected (NotDetected); Plesiomonas shigelloides PCR Not Detected (NotDetected); Rotavirus A PCR Not Detected (NotDetected); Salmonella PCR Not Detected (NotDetected); Sapovirus PCR Not Detected (NotDetected); Shiga-like Toxin E.coli (STEC) Not Detected (NotDetected); Shigella/Enteroinvasive E.coli Not Detected (NotDetected); Vibrio cholerae PCR Not Detected (NotDetected); Vibrio species PCR Not Detected (NotDetected); Yersinia enterocolitica PCR Not Detected (NotDetected)
[2023-08-28] MEDS ORDERED: FAMOTIDINE 20 MG TAB PO ONE (04:30)
[2023-08-28] MEDS ORDERED: ALUMINUM/MAGNESIUM SUSP 30 ML UDC PO STA ×2 (05:55→09:05)
--- NOTE | 2023-08-28 07:33 | XRay Report ---
XR chest 1V portable HISTORY: 68 years-old Male abd pain, vomiting, boarderline O2 acute generalized abdominal pain with nausea and vomiting COMPARISON: 01/17/2023 TECHNIQUE: AP view of the chest FINDINGS: Cardiac silhouette is enlarged. No pneumothorax or large pleural effusion. Pulmonary vascular congest ion with mild interstitial coarsening. Bones appear grossly intact. IMPRESSION: Cardiomegaly with pulmonary vascular congestion and mild chronic interstitial coarsening. ACT 112: Negative or not required by law. The above report was generated using voice recognition software. It may contain grammatical, syntax o r spelling errors. Electronically signed by: Milan Smith M.D. 08/28/2023 7:32 AM
[2023-08-28 08:50] LABS: Hematocrit (blood only) 41.6 % (42.0-52.0); Hemoglobin 13.5 g/dl (14.0-18.0); Mean Corpuscular Hemoglobin 29.2 pg (25.0-34.0); Mean Corpuscular Hgb Conc 32.5 g/dL (32.0-36.0); Mean Corpuscular Volume 89.8 fL (80.0-100.0); Mean Platelet Volume 9.4 fL (9.4-12.4); Platelet Count 398 K/uL (130-400); RDW Coefficient of Variation 18.8 % (11.5-14.5); RDW Standard Deviation 61.6 fL (36.4-46.3); Red Blood Count 4.63 M/uL (4.70-6.10); White Blood Count 6.95 K/ul (4.8-10.8)
[2023-08-28 09:09] LABS: Albumin Level 3.8 gm/dl (3.4-5.0); BUN Creatinine Ratio 14.1 (10-20); Bilirubin Direct 0.4 mg/dl (0-0.2); Bilirubin,Total 0.7 mg/dl (0.2-1.0); Calcium 8.7 mg/dl (8.6-10.3); Est GFR (African American) 16.6 ml/min; Est GFR (Non-African American) 14.3 ml/min; Potassium 5.9 mmol/L (3.5-5.1); Total Protein 9.7 gm/dl (6.0-8.3)
[2023-08-28] MEDS: APIXABAN 2.5 MG TAB PO SCH ×2 (09:36→20:48)
[2023-08-28] MEDS: METOPROLOL SUCC 50MG EXT REL TAB PO SCH ×2 (09:36→20:48)
[2023-08-28] MEDS: predniSONE 5 MG TAB PO SCH (09:36)
[2023-08-28] MEDS: SERTRALINE HCL 50 MG TABLET PO SCH (09:37)
[2023-08-28] MEDS: PANTOprazole 40 MG TAB PO SCH (11:21)
[2023-08-28] MEDS ORDERED: INSULIN HUMAN REGULAR PER UNIT 10 UNITS in SYRINGE 9.9 ML IV STA (12:28)
[2023-08-28] MEDS ORDERED: DEXTROSE 50% 50 ML SYRINGE IV STA (12:28)
[2023-08-28] MEDS ORDERED: PATIROMER CALCIUM SORBITEX 8.4 GM PACK PO STA (12:28)
[2023-08-28] MEDS ORDERED: STAT IV STA (12:28)
[2023-08-28] MEDS ORDERED: CALCIUM GLUCONATE 10% 1,000 MG in SODIUM CHLOR 0.9% MINI-B 50 ML IV ONE (12:28)
--- NOTE | 2023-08-28 12:29 | Electrocardiogram Report ---
Test Reason : Blood Pressure : / mmHG Vent. Rate : 104 BPM Atrial Rate : 000 BPM P-R Int : 000 ms QRS Dur : 082 ms QT Int : 332 ms P-R-T Axes : 000 001 128 degrees QTc Int : 436 ms Atrial fibrillation with rapid ventricular response Abnormal ECG When compared with ECG of 17-JAN-2023 09:32, Nonspecific T wave abnormality no longer evident in Anterior leads Inverted T waves have replaced nonspecific T wave abnormality in Lateral leads Confirmed by Remy Avalos ([id number]) on 08/28/2023 12:29:25 PM Referred By: REFERRED SELF Confirmed By:Remy Avalos
[2023-08-28 13:14] LABS: Appearance Urine Cloudy (Clear); Bacteria Urine Automated Negative (Negative); Bilirubin Urine Negative (Negative); Blood Urine 1+ (Negative); Color Urine Dark Yellow; Epithelial Cell Urine Auto >30 /lpf (0-5); Glucose Urine UA 1+ (Negative); Ketones Urine Negative (Negative); Leukocyte Esterase Urine Negative (Negative); Nitrite Urine Negative (Negative); Protein Urine 2+ (Negative); RBC Urine Automated 0-4 /hpf (0-4); Specific Gravity Urine 1.016 (1.000-1.030); Urobilinogen Urine Negative (Negative)
[2023-08-28 13:28] LABS: Creatinine Urine Random 110.3 mg/dl
[2023-08-28 13:40] LABS: Amorphous Sediment Urine Present (None Prsent); Cast Urine Automated >30 /lpf (0-5)
--- NOTE | 2023-08-28 15:03 | Hospitalist Progress Note ---
Date of Service August 28, 2023 Assessment & Plan (1) Gastroenteritis: Plan: most likely viral in etiology clinically improved - stool studies negative - C. difficile negative - continue IV fluids -Monitor electrolytes - discontinue morphine as the patient does not have any abdominal pain anymore -Zofran as needed for nausea (2) HOMERO (acute kidney injury): Plan: Patient with HOMERO. BUN=48, Cr=3.95. Last bloodwork on record from 01/17/23 revealed normal renal function with BUN of 22 and Cr of 1. Suspect multifactorial - volume depletion in setting of vomiting and diarrhea, decreased oral intake as well as medication effects - patient on Lisinopril for hypertension. He does have a gapped metabolic acidosis with AG of 17, HCO3 of 19. K is mildly elevated at 5.6. No EKG changes of hyperkalemia. Creatinine still elevated at 4, up from 1 a few months ago potassium is higher at 5.9 Consult nephrology Continue to hold lisinopril and other nephrotoxic agents Continue IV hydration Treat hyperkalemia with Lokelma, insulin and D50. cardiac stabilization with calcium gluconate (3) Rheumatoid arthritis: Plan: Chronic RA. Pain well controlled at present -Continue Prednisone 5mg po daily (4) HTN (hypertension): Plan: Chronic. Blood pressure 109/69 currently -Hold Amlodipine with borderline blood pressure -Hold Lisinopril in setting of HOMERO -Continue Metoprolol 100mg po BID -Continue to monitor (5) A-fib: Plan: Rate control. Anticoagulated on Eliquis -Continue Metoprolol 100mg po BID -Continue Eliquis - reduce dose to 2.5mg po BID in setting of renal compromise Plan F/E/N - LR at 125mL/hr x 2L, monitor electrolytes, regular diet as tolerated Ppx - On Eliquis anticoagulation Code - Conditional - no CPR, ok with intubation and ventilation for brief treatment Spoke to daughter on the phone Admission and Anticipated Discharge Date Admission Date: August 27, 2023 Subjective patient feels better overall. The nausea, vomiting, diarrhea and abdominal pain have all resolved. He is making urine. He complains of feeling weak in general. Noted that his renal function has not improved and his potassium is worse Review of Systems Review of Systems: All systems reviewed & are unremarkable except as noted in Subjective Physical Exam Physical Exam: General: Awake, conversant Heart: S1, S2/regular rate and rhythm, no murmur rubs or gallops Lungs: Clear to auscultation bilaterally. Normal effort Abdomen: Soft/nontender/nondistended. No hepatosplenomegaly Extremities: No clubbing/cyanosis. No edema Behavior: Appropriate, cooperative Results & Data Results & Data Vital Signs (Past 12 Hours) Vital Signs Temp Pulse Pulse Resp BP Pulse Ox O2 Del Method 08/28/23 11:49 36.4 C L 87 17 116/72 95 Room Air 08/28/23 09:36 120/74 08/28/23 07:47 37.0 C 71 18 100/64 91 Room Air 08/28/23 07:41 36.7 C 103 H 17 126/73 94 Room Air 08/28/23 07:18 117 H 08/28/23 03:55 36.6 C 96 H 18 115/75 95 Room Air Laboratory Results Abnormal lab results 08/27/23 08/27/23 08/27/23 Range/Units 20:08 20:08 20:08 RBC (4.70-6.10) M/uL Hgb (14.0-18.0) g/dl Hct (42.0-52.0) % RDW Std Deviation 63.1 H (36.4-46.3) fL RDW Coeff of Alana 19.2 H (11.5-14.5) % Plt Count 539 H (130-400) K/uL MPV 9.2 L (9.4-12.4) fL Lymph # (Auto) 1.09 L (1.20-3.40) K/uL PT 12.3 H (9.0-12.0) Seconds POC Sodium (135-144) mmol/L Sodium 128 L (136-145) mmol/L POC Potassium (3.3-5.0) mmol/L Potassium 5.6 H (3.5-5.1) mmol/L Chloride 92 L (98-107) mmol/L Carbon Dioxide 19 L (21-32) mmol/L POC Total CO2 (24-31) mmol/L Anion Gap 17 H (3-11) POC Anion Gap (16-25) mmol/L POC BUN (7-18) mg/dl BUN 48 H (6-23) mg/dl Creatinine 3.95 H (0.6-1.4) mg/dl POC Creatinine (0.6-1.3) mg/dl Glucose 164 H (70-99(Fasting)) mg/dl POC Glucose (other) (70-99) mg/dl Lactate (0.4-2.0) mmol/L POC Ioniz Calcium Hakan (1.12-1.32) mmol/l Direct Bilirubin (0-0.2) mg/dl AST (13-39) U/L Alkaline Phosphatase 353 H (34-104) U/L Total Protein 11.9 H (6.0-8.3) gm/dl Globulin 7.3 H (2.5-4.0) gm/dl Albumin/Globulin Ratio 0.6 L (0.9-2) Urine Appearance (Clear) Urine Protein (Negative) Urine Glucose (UA) (Negative) Urine Blood (Negative) Urine WBC (Auto) (0-5) /hpf U Hyaline Cast (Auto) (0-5) /lpf U Epithel Cells (Auto) (0-5) /lpf Amorphous Sediment (None Prsent) Granular Casts (0) /lpf 08/27/23 08/27/23 08/28/23 Range/Units 20:08 20:13 08:28 RBC 4.63 L (4.70-6.10) M/uL Hgb 13.5 L (14.0-18.0) g/dl Hct 41.6 L (42.0-52.0) % RDW Std Deviation 61.6 H (36.4-46.3) fL RDW Coeff of Alana 18.8 H (11.5-14.5) % Plt Count (130-400) K/uL MPV (9.4-12.4) fL Lymph # (Auto) (1.20-3.40) K/uL PT (9.0-12.0) Seconds POC Sodium 133 L (135-144) mmol/L Sodium (136-145) mmol/L POC Potassium 5.8 H (3.3-5.0) mmol/L Potassium (3.5-5.1) mmol/L Chloride (98-107) mmol/L Carbon Dioxide (21-32) mmol/L POC Total CO2 23 L (24-31) mmol/L Anion Gap (3-11) POC Anion Gap 15.0 L (16-25) mmol/L POC BUN 47 H (7-18) mg/dl BUN (6-23) mg/dl Creatinine (0.6-1.4) mg/dl POC Creatinine 4.8 H* (0.6-1.3) mg/dl Glucose (70-99(Fasting)) mg/dl POC Glucose (other) 167 H (70-99) mg/dl Lactate 3.3 H* (0.4-2.0) mmol/L POC Ioniz Calcium Hakan 1.02 L (1.12-1.32) mmol/l Direct Bilirubin (0-0.2) mg/dl AST (13-39) U/L Alkaline Phosphatase (34-104) U/L Total Protein (6.0-8.3) gm/dl Globulin (2.5-4.0) gm/dl Albumin/Globulin Ratio (0.9-2) Urine Appearance (Clear) Urine Protein (Negative) Urine Glucose (UA) (Negative) Urine Blood (Negative) Urine WBC (Auto) (0-5) /hpf U Hyaline Cast (Auto) (0-5) /lpf U Epithel Cells (Auto) (0-5) /lpf Amorphous Sediment (None Prsent) Granular Casts (0) /lpf 08/28/23 08/28/23 Range/Units 08:28 12:57 RBC (4.70-6.10) M/uL Hgb (14.0-18.0) g/dl Hct (42.0-52.0) % RDW Std Deviation (36.4-46.3) fL RDW Coeff of Alana (11.5-14.5) % Plt Count (130-400) K/uL MPV (9.4-12.4) fL Lymph # (Auto) (1.20-3.40) K/uL PT (9.0-12.0) Seconds POC Sodium (135-144) mmol/L Sodium 129 L (136-145) mmol/L POC Potassium (3.3-5.0) mmol/L Potassium 5.9 H (3.5-5.1) mmol/L Chloride (98-107) mmol/L Carbon Dioxide 17 L (21-32) mmol/L POC Total CO2 (24-31) mmol/L Anion Gap 13 H (3-11) POC Anion Gap (16-25) mmol/L POC BUN (7-18) mg/dl BUN 56 H (6-23) mg/dl Creatinine 3.98 H (0.6-1.4) mg/dl POC Creatinine (0.6-1.3) mg/dl Glucose 115 H (70-99(Fasting)) mg/dl POC Glucose (other) (70-99) mg/dl Lactate (0.4-2.0) mmol/L POC Ioniz Calcium Hakan (1.12-1.32) mmol/l Direct Bilirubin 0.4 H (0-0.2) mg/dl AST 10 L (13-39) U/L Alkaline Phosphatase 257 H (34-104) U/L Total Protein 9.7 H (6.0-8.3) gm/dl Globulin (2.5-4.0) gm/dl Albumin/Globulin Ratio (0.9-2) Urine Appearance Cloudy A (Clear) Urine Protein 2+ H (Negative) Urine Glucose (UA) 1+ H (Negative) Urine Blood 1+ H (Negative) Urine WBC (Auto) 5-10 H (0-5) /hpf U Hyaline Cast (Auto) >30 H (0-5) /lpf U Epithel Cells (Auto) >30 H (0-5) /lpf Amorphous Sediment Present A (None Prsent) Granular Casts 5-10 H (0) /lpf PG Care Time/CCT Total # of Minutes Spent Total Time Spent with Patient: Total time spent is greater than 50% in coordination of care (as documented) at patient's floor/unit and/or counseling patient: Coding Level of Care Code 95911 SUB INP/OBS CARE 2/35MIN Diagnoses Gastroenteritis K52.9 HOMERO (acute kidney injury) N17.9 Rheumatoid arthritis M06.9 HTN (hypertension) I10 A-fib I48.91
--- NOTE | 2023-08-28 15:44 | Nephrology Consultation ---
Date of Consultation August 28, 2023 Assessment & Plan (1) HOMERO (acute kidney injury): Non-oliguric by report but output not documented. CT demonstrates normal appearing kidneys without evidence of obstruction. UA with +2 protein. Urine microscopy demonstrating 5-10 WBC/hpf, no RBCs. Urine notable for granular and hyaline casts. Clinical presentation and findings are supportive of prerenal azotemia and superimposed ATN. Volume status remains hypovolemic. Tolerating IVF well. Will switch LR to increase HCO3 replacement due to NAGMA associated with GI losses. Start 1/2 NS + 75 mEq @ 150 ml/hr. Additional PO NaHCO3 provided now. Complications of HOMERO include associated hyponatremia and hyperkalemia. Lokelma provided this afternoon by hospitalist. IVF is being provided to encouraged urine output. Stat repeat metabolic profile has been requested now. Medications are currently appropriately dosed for kidney function. Continue to hold lisinopril. Repeat blood work ordered for 8 PM. (2) Acute hyperkalemia: No associated EKG changes appreciated. Lokelma was administered this afternoon. Grant has been non-oliguric with adequate urine output per history. A stat repeat metabolic profile has been ordered now. Diet was switched to low potassium diet. ACEi held. Additional HCO3 replacement has been ordered for NAGMA. Repeat blood work ordered for 8 PM. (3) HTN (hypertension): BP acceptable. Antihypertensives including lisinopril and amlodipine held due to low BP and intravascular volume depletion on admission. No indication to restart therapy at this time. (4) Rheumatoid arthritis: Maintained on prednisone chronically, if concerns regarding low BP or hyponatremia and hyperkalemia persist despite current management of intravascular volume depletion, consider adrenal insufficiency which may benefit from stress dosing steroids. (5) Gastroenteritis: Clinically improving. IVF to encourage positive fluid balance. Document strict I/O's. (6) Hyponatremia: Chronic. Mild. No symptoms reported. Volume status hypovolemic. Close monitoring while isotonic fluids infuse. (7) A-fib: History of Present Illness Reason for Consultation: HOMERO, hyperkalemia Requesting Physician: Vanessa Gordon MD Attending Physician: Vanessa Gordon MD History of Present Illness Mr. Grant Quinonez is a 68 year-old male with hypertension, rheumatoid arthritis, and atrial fibrillation who presented to the ER at [facility] with nausea, vomiting, and diarrhea. Evaluation demonstrated notable acute kidney injury with associated hyperkalemia. HOMERO was attributed to dehydration. Grant was admitted for observation and IVF. He has been tolerating fluids well. GI symptoms are improving. Unfortunately, kidney dysfunction and hyperkalemia had not significantly improved. Lokelma was provided this afternoon. Nephrology consultation was requested. Grant was seen and evaluated in his hospital room this afternoon. He was resting comfortably. He states that he has had HOMERO in the past and notes that he has also had hyperkalemia. He is educated on potential role of renal replacement therapy. However, he notes that he is non-oliguric and denies any symptoms. Baseline creatinine was documented at 1 mg/dL in December. CT demonstrates normal appearing kidneys. Urine microscopy demonstrates hyaline and granular casts. There is no notable history of NSAID use. Associated laboratory abnormalities include lactic acidosis on admission and subsequently a persistent NAGMA associated with diarrhea. Appetite has improved. Grant reports adequate PO intake. He is tolerating IVF without any fluid retention or edema. Allergies Allergy/AdvReac Type Severity Reaction Status Date / Time No Known Allergies Allergy Unverified 08/27/23 21:13 Home Medications Medication Instructions Recorded Confirmed Type adalimumab 40 mg/0.8 mL 40 mg subcut UD 01/17/23 08/27/23 History subcutaneous pen kit (Humira Pen) lisinopril 40 mg tablet 40 mg PO DAILY 01/17/23 08/27/23 History prednisone 5 mg tablet 5 mg PO DAILY 01/17/23 08/27/23 History sertraline 50 mg tablet 50 mg PO DAILY 01/17/23 08/27/23 History amlodipine 10 mg tablet 10 mg PO DAILY 08/27/23 08/27/23 History apixaban 5 mg tablet (Eliquis) 5 mg PO BID 08/27/23 08/27/23 History metoprolol succinate 100 mg 100 mg PO BID 08/27/23 08/27/23 History tablet,extended release 24 hr Patient History Medical History (Updated 08/28/23 @ 15:51 by Pierce Araiza DO) A-fib HTN (hypertension) Rheumatoid arthritis Surgical History No significant past surgical history Family History Other No significant family history Social History Smoking Status: Former smoker Tobacco Type: Cigarettes Second Hand Exposure: No; Do You Dip or Chew Tobacco: No; Hx Alcohol Use: Yes Alcohol type: beer Hx Substance Use: No Preferred Language: Maori Communication Ability: Effective 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 Beliefs That Will Affect Care: None Current Living Situation: Spouse Other Information That Helps Us Care for You: No Feels Safe at Home: Yes Safety Concerns: Feels Safe At This Time Assistive Devices: None Review of Systems Review of Systems: All systems reviewed & are unremarkable except as noted in HPI & below Constitutional: no fever and no chills Gastrointestinal: as per Subjective / HPI; no abdominal pain, no nausea, no vomiting and no melena Physical Exam Constitutional: well developed; no acute distress Eyes: + anicteric sclerae; no conjunctival abnormality ENMT: Mouth: + dry oral mucous membranes; no oral mucosal abnormality Neck: normal visual inspection and trachea midline Respiratory: normal respiratory effort Auscultation: lungs clear to auscultation bilaterally Cardiovascular: Rate/Rhythm: regular rate Heart Sounds: normal S1 and normal S2 Extremities: no edema Musculoskeletal: Extremities: no cyanosis and no clubbing Skin: + turgor decreased; no jaundice Neurologic: Motor/Sensory: no tremor and no asterixis Psychiatric: Orientation: alert and oriented x 3 Results & Data Vital Signs (Past 12 Hours) Vital Signs Temp Pulse Pulse Resp BP Pulse Ox O2 Del Method 08/28/23 11:49 36.4 C L 87 17 116/72 95 Room Air 08/28/23 09:36 120/74 08/28/23 07:47 37.0 C 71 18 100/64 91 Room Air 08/28/23 07:41 36.7 C 103 H 17 126/73 94 Room Air 08/28/23 07:18 117 H 08/28/23 03:55 36.6 C 96 H 18 115/75 95 Room Air Laboratory Results Laboratory Results - last 24 hr 08/27/23 08/27/23 08/27/23 20:08 20:08 20:08 WBC 7.16 RBC 5.27 Hgb 15.5 POC Hgb Hct 48.0 POC Hct MCV 91.1 MCH 29.4 MCHC 32.3 RDW Std Deviation 63.1 H RDW Coeff of Alana 19.2 H Plt Count 539 H MPV 9.2 L Immature Gran % (Auto) 0.8 Neut % (Auto) 75.2 Lymph % (Auto) 15.2 [place] % (Auto) 5.7 Eos % (Auto) 2.5 Baso % (Auto) 0.6 Neut # (Auto) 5.38 Lymph # (Auto) 1.09 L [place] # (Auto) 0.41 Eos # (Auto) 0.18 Baso # (Auto) 0.04 Immature Gran # (Auto) 0.06 PT 12.3 H INR 1.1 POC Sodium Sodium 128 L POC Potassium Potassium 5.6 H POC Chloride Chloride 92 L Carbon Dioxide 19 L POC Total CO2 Anion Gap 17 H POC Anion Gap POC BUN BUN 48 H Creatinine 3.95 H POC Creatinine Est Cr Clr Drug Dosing Not Reportable Est GFR ( Amer) 16.7 Est GFR (Non-Af Amer) 14.4 BUN/Creatinine Ratio 12.2 Glucose 164 H POC Glucose POC Glucose (other) Lactate Calcium 10.1 POC Ioniz Calcium [place]akan Phosphorus Total Bilirubin 0.9 Direct Bilirubin AST 16 ALT 19 Alkaline Phosphatase 353 H Troponin I High Sens 6.8 Total Protein 11.9 H Albumin 4.6 Globulin 7.3 H Albumin/Globulin Ratio 0.6 L Lipase 25 Urine Color Urine Appearance Urine pH Ur Specific Monette Urine Protein Urine Glucose (UA) Urine Ketones Urine Blood Urine Nitrite Urine Bilirubin Urine Urobilinogen Ur Leukocyte Esterase Urine WBC (Auto) Urine RBC (Auto) U Hyaline Cast (Auto) U Epithel Cells (Auto) Urine Bacteria (Auto) Amorphous Sediment Granular Casts Urine Yeast Ur Random Creatinine Ur Random Sodium Stl C. cayetanensis PCR Stool Rotavirus A PCR Stl Adenov F 40 PCR Stool Astrovirus (PCR) Stool Campylobacter PCR Stl C. diff Tox B Gene Stool Cryptosporidium PCR Stl E.coli Shiga Tox PCR Stl Enterotoxigenic E PCR Stool EPEC (PCR) Stool EAEC (PCR) Stl E. histolytica PCR Stool Giardia Lamblia PCR Stool Salmonella PCR Stool Sapovirus (PCR) Stl P. shigelloides PCR Stl Shigella/EIEC PCR St Y.enterocolitica PCR Stool Vibrio (PCR) Stl Vibrio cholerae PCR Stl Norovirus GI/GII PCR SARS-CoV-2, RNA, NAAT 10/08/23 10/08/23 10/08/23 20:08 20:13 20:40 WBC RBC Hgb POC Hgb 17.7 Hct POC Hct 52 MCV MCH MCHC RDW Std Deviation RDW Coeff of Alana Plt Count MPV Immature Gran % (Auto) Neut % (Auto) Lymph % (Auto) [place] % (Auto) Eos % (Auto) Baso % (Auto) Neut # (Auto) Lymph # (Auto) [place] # (Auto) Eos # (Auto) Baso # (Auto) Immature Gran # (Auto) PT INR POC Sodium 133 L Sodium POC Potassium 5.8 H Potassium POC Chloride 101 Chloride Carbon Dioxide POC Total CO2 23 L Anion Gap POC Anion Gap 15.0 L POC BUN 47 H BUN Creatinine POC Creatinine 4.8 H* Est Cr Clr Drug Dosing Est GFR ( Amer) Est GFR (Non-Af Amer) BUN/Creatinine Ratio Glucose POC Glucose POC Glucose (other) 167 H Lactate 3.3 H* Calcium POC Ioniz Calcium [place] 1.02 L Phosphorus Total Bilirubin Direct Bilirubin AST ALT Alkaline Phosphatase Troponin I High Sens Total Protein Albumin Globulin Albumin/Globulin Ratio Lipase Urine Color Urine Appearance Urine pH Ur Specific [place] Urine Protein Urine Glucose (UA) Urine Ketones Urine Blood Urine Nitrite Urine Bilirubin Urine Urobilinogen Ur Leukocyte Esterase Urine WBC (Auto) Urine RBC (Auto) U Hyaline Cast (Auto) U Epithel Cells (Auto) Urine Bacteria (Auto) Amorphous Sediment Granular Casts Urine Yeast Ur Random Creatinine Ur Random Sodium Stl C. cayetanensis PCR Stool Rotavirus A PCR Stl Adenov F 40 PCR Stool Astrovirus (PCR) Stool Campylobacter PCR Stl C. diff Tox B Gene Stool Cryptosporidium PCR Stl E.coli Shiga Tox PCR Stl Enterotoxigenic E PCR Stool EPEC (PCR) Stool EAEC (PCR) Stl E. histolytica PCR Stool Giardia Lamblia PCR Stool Salmonella PCR Stool Sapovirus (PCR) Stl P. shigelloides PCR Stl Shigella/EIEC PCR St Y.enterocolitica PCR Stool Vibrio (PCR) Stl Vibrio cholerae PCR Stl Norovirus GI/GII PCR SARS-CoV-2, RNA, NAAT NEGATIVE 08/28/23 08/28/23 08/28/23 00:40 00:40 08:28 WBC 6.95 RBC 4.63 L Hgb 13.5 L POC Hgb Hct 41.6 L POC Hct MCV 89.8 MCH 29.2 MCHC 32.5 RDW Std Deviation 61.6 H RDW Coeff of Alana 18.8 H Plt Count 398 MPV 9.4 Immature Gran % (Auto) Neut % (Auto) Lymph % (Auto) [place] % (Auto) Eos % (Auto) Baso % (Auto) Neut # (Auto) Lymph # (Auto) [place] # (Auto) Eos # (Auto) Baso # (Auto) Immature Gran # (Auto) PT INR POC Sodium Sodium POC Potassium Potassium POC Chloride Chloride Carbon Dioxide POC Total CO2 Anion Gap POC Anion Gap POC BUN BUN Creatinine POC Creatinine Est Cr Clr Drug Dosing Est GFR ( Amer) Est GFR (Non-Af Amer) BUN/Creatinine Ratio Glucose POC Glucose POC Glucose (other) Lactate Calcium POC Ioniz Calcium [place] Phosphorus Total Bilirubin Direct Bilirubin AST ALT Alkaline Phosphatase Troponin I High Sens Total Protein Albumin Globulin Albumin/Globulin Ratio Lipase Urine Color Urine Appearance Urine pH Ur Specific [place] Urine Protein Urine Glucose (UA) Urine Ketones Urine Blood Urine Nitrite Urine Bilirubin Urine Urobilinogen Ur Leukocyte Esterase Urine WBC (Auto) Urine RBC (Auto) U Hyaline Cast (Auto) U Epithel Cells (Auto) Urine Bacteria (Auto) Amorphous Sediment Granular Casts Urine Yeast Ur Random Creatinine Ur Random Sodium Stl C. cayetanensis PCR Not Detected Stool Rotavirus A PCR Not Detected Stl Adenov F 40/41 PCR Not Detected Stool Astrovirus (PCR) Not Detected Stool Campylobacter PCR Not Detected Stl C. diff Tox B Gene Negative Cdiff Gene Stool Cryptosporidium PCR Not Detected Stl E.coli Shiga Tox PCR Not Detected Stl Enterotoxigenic E PCR Not Detected Stool EPEC (PCR) Not Detected Stool EAEC (PCR) Not Detected Stl E. histolytica PCR Not Detected Stool Giardia Lamblia PCR Not Detected Stool Salmonella PCR Not Detected Stool Sapovirus (PCR) Not Detected Stl P. shigelloides PCR Not Detected Stl Shigella/EIEC PCR Not Detected St Y.enterocolitica PCR Not Detected Stool Vibrio (PCR) Not Detected Stl Vibrio cholerae PCR Not Detected Stl Norovirus GI/GII PCR Not Detected SARS-CoV-2, RNA, NAAT 08/28/23 08/28/23 08/28/23 08:28 08:28 12:57 WBC RBC Hgb POC Hgb Hct POC Hct MCV MCH MCHC RDW Std Deviation RDW Coeff of Alana Plt Count MPV Immature Gran % (Auto) Neut % (Auto) Lymph % (Auto) [place] % (Auto) Eos % (Auto) Baso % (Auto) Neut # (Auto) Lymph # (Auto) [place] # (Auto) Eos # (Auto) Baso # (Auto) Immature Gran # (Auto) PT INR POC Sodium Sodium 129 L POC Potassium Potassium 5.9 H POC Chloride Chloride 99 Carbon Dioxide 17 L POC Total CO2 Anion Gap 13 H POC Anion Gap POC BUN BUN 56 H Creatinine 3.98 H POC Creatinine Est Cr Clr Drug Dosing 19.0 Est GFR ( Amer) 16.6 Est GFR (Non-Af Amer) 14.3 BUN/Creatinine Ratio 14.1 Glucose 115 H POC Glucose POC Glucose (other) Lactate 1.7 Calcium 8.7 POC Ioniz Calcium [place] Phosphorus Total Bilirubin 0.7 Direct Bilirubin 0.4 H AST 10 L ALT 11 Alkaline Phosphatase 257 H Troponin I High Sens Total Protein 9.7 H Albumin 3.8 Globulin Albumin/Globulin Ratio Lipase Urine Color Dark Yellow Urine Appearance Cloudy A Urine pH 5.0 Ur Specific Monette 1.016 Urine Protein 2+ H Urine Glucose (UA) 1+ H Urine Ketones Negative Urine Blood 1+ H Urine Nitrite Negative Urine Bilirubin Negative Urine Urobilinogen Negative Ur Leukocyte Esterase Negative Urine WBC (Auto) 5-10 H Urine RBC (Auto) 0-4 U Hyaline Cast (Auto) >30 H U Epithel Cells (Auto) >30 H Urine Bacteria (Auto) Negative Amorphous Sediment Present A Granular Casts 5-10 H Urine Yeast Not Reportable Ur Random Creatinine Ur Random Sodium Stl C. cayetanensis PCR Stool Rotavirus A PCR Stl Adenov F 40 PCR Stool Astrovirus (PCR) Stool Campylobacter PCR Stl C. diff Tox B Gene Stool Cryptosporidium PCR Stl E.coli Shiga Tox PCR Stl Enterotoxigenic E PCR Stool EPEC (PCR) Stool EAEC (PCR) Stl E. histolytica PCR Stool Giardia Lamblia PCR Stool Salmonella PCR Stool Sapovirus (PCR) Stl P. shigelloides PCR Stl Shigella/EIEC PCR St Y.enterocolitica PCR Stool Vibrio (PCR) Stl Vibrio cholerae PCR Stl Norovirus GI/GII PCR SARS-CoV-2, RNA, NAAT 10/08/1208/28/23 08/28/23 12:57 14:26 15:26 WBC RBC Hgb POC Hgb Hct POC Hct MCV MCH MCHC RDW Std Deviation RDW Coeff of Alana Plt Count MPV Immature Gran % (Auto) Neut % (Auto) Lymph % (Auto) [place] % (Auto) Eos % (Auto) Baso % (Auto) Neut # (Auto) Lymph # (Auto) [place] # (Auto) Eos # (Auto) Baso # (Auto) Immature Gran # (Auto) PT INR POC Sodium Sodium Pending POC Potassium Potassium Pending POC Chloride Chloride Pending Carbon Dioxide Pending POC Total CO2 Anion Gap Pending POC Anion Gap POC BUN BUN Pending Creatinine Pending POC Creatinine Est Cr Clr Drug Dosing Pending Est GFR ( Amer) Pending Est GFR (Non-Af Amer) Pending BUN/Creatinine Ratio Pending Glucose Pending POC Glucose 88 POC Glucose (other) Lactate Calcium Pending POC Ioniz Calcium [place] Phosphorus Pending Total Bilirubin Pending Direct Bilirubin AST Pending ALT Pending Alkaline Phosphatase Pending Troponin I High Sens Total Protein Pending Albumin Pending Globulin Pending Albumin/Globulin Ratio Pending Lipase Urine Color Urine Appearance Urine pH Ur Specific [place] Urine Protein Urine Glucose (UA) Urine Ketones Urine Blood Urine Nitrite Urine Bilirubin Urine Urobilinogen Ur Leukocyte Esterase Urine WBC (Auto) Urine RBC (Auto) U Hyaline Cast (Auto) U Epithel Cells (Auto) Urine Bacteria (Auto) Amorphous Sediment Granular Casts Urine Yeast Ur Random Creatinine 110.3 Ur Random Sodium 84 Stl C. cayetanensis PCR Stool Rotavirus A PCR Stl Adenov F 40/41 PCR Stool Astrovirus (PCR) Stool Campylobacter PCR Stl C. diff Tox B Gene Stool Cryptosporidium PCR Stl E.coli Shiga Tox PCR Stl Enterotoxigenic E PCR Stool EPEC (PCR) Stool EAEC (PCR) Stl E. histolytica PCR Stool Giardia Lamblia PCR Stool Salmonella PCR Stool Sapovirus (PCR) Stl P. shigelloides PCR Stl Shigella/EIEC PCR St Y.enterocolitica PCR Stool Vibrio (PCR) Stl Vibrio cholerae PCR Stl Norovirus GI/GII PCR SARS-CoV-2, RNA, NAAT Diagnostic Findings Exam(s): CT ABDOMEN + PELVIS Without Contrast FINDINGS: Lung bases: Atelectasis at the lung bases. ABDOMEN: Liver: Unremarkable. Gallbladder and bile ducts: Cholelithiasis without cholecystitis. Pancreas: Unremarkable. Spleen: Unremarkable. Adrenals: Unremarkable. Kidneys and ureters: Unremarkable. No obstructing stones. No hydronephrosis. Stomach and bowel: Liquid stool within the colon suggestive of a nonspecific diarrheal illness. PELVIS: Appendix: No findings to suggest acute appendicitis. Bladder: Unremarkable. Reproductive: Unremarkable as visualized. ABDOMEN and PELVIS: Intraperitoneal space: Unremarkable. No free air. No significant fluid collection. Bones/joints: No acute fracture. Soft tissues: Unremarkable. Vasculature: Unremarkable. Lymph nodes: Unremarkable. IMPRESSION: 1. Liquid stool within the colon suggestive of a nonspecific diarrheal illness. 2. Cholelithiasis without cholecystitis. ECG Additional Comments: Vent. Rate : 104 BPM Atrial Rate : 000 BPM P-R Int : 000 ms QRS Dur : 082 ms QT Int : 332 ms P-R-T Axes : 000 001 128 degrees QTc Int : 436 ms Atrial fibrillation with rapid ventricular response Abnormal ECG When compared with ECG of 17-JAN-2023 09:32, Nonspecific T wave abnormality no longer evident in Anterior leads Inverted T waves have replaced nonspecific T wave abnormality in Lateral leads PG Care Time/CCT Total # of Minutes Spent Total Time Spent with Patient: Total time spent is greater than 50% in coordination of care (as documented) at patient's floor/unit and/or counseling patient: Coding Level of Care Code 07586 IN/OBS CONSULT LVL 4,60M Diagnoses HOMERO (acute kidney injury) N17.9 Acute hyperkalemia E87.5 HTN (hypertension) I10 Rheumatoid arthritis M06.9 Gastroenteritis K52.9 Hyponatremia E87.1 A-fib I48.91
[2023-08-28 16:08] LABS: Albumin Globulin Ratio 0.7 (0.9-2); Albumin Level 3.7 gm/dl (3.4-5.0); Bilirubin,Total 0.7 mg/dl (0.2-1.0); Calcium 8.9 mg/dl (8.6-10.3); Est GFR (African American) 18.8 ml/min; Est GFR (Non-African American) 16.2 ml/min; Globulin 5.4 gm/dl (2.5-4.0); Phosphorus 5.5 mg/dl (2.5-4.9); Potassium 5.6 mmol/L (3.5-5.1); Total Protein 9.1 gm/dl (6.0-8.3)
[2023-08-28] MEDS ORDERED: SODIUM BICARBONATE 650 MG TAB PO ONE (16:12)
[2023-08-28] MEDS: SODIUM BICARBONATE 8.4% 75 MEQ in SODIUM CHLORIDE 0.45 % 1,000 ML IV SCH ×2 (16:29→23:16)
[2023-08-28 20:36] LABS: BUN Creatinine Ratio 15.7 (10-20); Calcium 8.6 mg/dl (8.6-10.3); Creatinine Clr Calc Pharmacy 22.4 ml/min; Est GFR (African American) 20.3 ml/min; Est GFR (Non-African American) 17.5 ml/min; Potassium 5.3 mmol/L (3.5-5.1)
[2023-08-28] MEDS ORDERED: PATIROMER CALCIUM SORBITEX 8.4 GM PACK PO ONE (21:34)
[2023-08-29] MEDS: SODIUM BICARBONATE 8.4% 75 MEQ in SODIUM CHLORIDE 0.45 % 1,000 ML IV SCH ×3 (05:49→22:15)
[2023-08-29 06:18] LABS: Hematocrit (blood only) 36.9 % (42.0-52.0); Hemoglobin 12.4 g/dl (14.0-18.0); Mean Corpuscular Hemoglobin 29.7 pg (25.0-34.0); Mean Corpuscular Hgb Conc 33.6 g/dL (32.0-36.0); Mean Corpuscular Volume 88.5 fL (80.0-100.0); Mean Platelet Volume 9.5 fL (9.4-12.4); Platelet Count 344 K/uL (130-400); RDW Coefficient of Variation 18.3 % (11.5-14.5); RDW Standard Deviation 60.1 fL (36.4-46.3); Red Blood Count 4.17 M/uL (4.70-6.10); White Blood Count 3.26 K/ul (4.8-10.8)
[2023-08-29 07:10] LABS: Calcium 8.7 mg/dl (8.6-10.3); Potassium 4.9 mmol/L (3.5-5.1)
[2023-08-29 07:16] LABS: BUN Creatinine Ratio 17.6 (10-20); Creatinine Clr Calc Pharmacy 27.1 ml/min; Est GFR (African American) 25.6 ml/min; Est GFR (Non-African American) 22.1 ml/min
--- NOTE | 2023-08-29 10:15 | Nephrology Progress Note ---
Date of Service August 29, 2023 Assessment & Plan (1) HOMERO (acute kidney injury): Plan: Clinically consistent with prerenal azotemia from dehydration and superimposed ATN. Volume status improving. Tolerating IVF well. Continue 1/2 NS + 75 mEq @ 150 ml/hr for additional ~1 L. If PO intake adequate consider stopping IVF this afternoon. Electrolytes acceptable. No indication for CITRUS PEELER. Medications are currently appropriately dosed for kidney function. Continue to hold lisinopril. (2) Acute hyperkalemia: Plan: Improving with therapy. Continue HCO3 replacement. Maintain low K diet. Repeat metabolic profile this evening. (3) HTN (hypertension): Plan: BP acceptable. Antihypertensives including lisinopril and amlodipine held due to low BP and intravascular volume depletion on admission. No indication to restart therapy at this time. (4) Rheumatoid arthritis: Plan: Maintained on prednisone. (5) Gastroenteritis: Plan: Clinically improving. IVF to encourage positive fluid balance. Document strict I/O's. (6) Hyponatremia: Plan: Chronic. Mild. No symptoms reported. Improving with isotonic fluid. Hypovolemic hyponatremia. (7) A-fib: Admission and Anticipated Discharge Date Admission Date: August 27, 2023 Subjective No acute events overnight. Grant feels well this AM. Diarrhea has resolved. Appetite improving. No fevers or chills. No abdominal pain. Tolerating IVF. De nies fluid retention or edema. Urine output increasing. Review of Systems Review of Systems: All systems reviewed & are unremarkable except as noted in HPI & below Physical Exam Constitutional: well developed; no acute distress Eyes: + anicteric sclerae; no conjunctival abnormality ENMT: Mouth: + dry oral mucous membranes; no oral mucosal abnormality Neck: normal visual inspection and trachea midline Respiratory: normal respiratory effort Auscultation: lungs clear to au scultation bilaterally Cardiovascular: Rate/Rhythm: regular rate Heart Sounds: normal S1 and normal S2 Extremities: no edema Musculoskeletal: Extremities: no cyanosis and no clubbing Skin: + turgor decreased; no jaundice Neurologic: Motor/Sensory: no tremor and no asterixis Psychiatric: Orientation: alert and oriented x 3 Results & Data Vital Signs (Past 12 Hours) Vital Signs Temp Pulse Pulse Resp BP Pulse Ox O2 Del Method 08/29/23 08:17 36.8 C 99 H 18 151/84 H 95 Room Air 08/29/23 07:29 95 H 08/29/23 05:04 36.4 C L 86 20 145/86 H 94 Room Air 08/28/23 23:26 36.8 C 92 H 12 143/85 H 96 Room Air Laboratory Results Laboratory Results - last 24 hr 08/28/23 08/28/23 08/28/23 12:57 12:57 14:26 WBC RBC Hgb Hct MCV MCH MCHC RDW Std Deviation RDW Coeff of Alana Plt Count MPV Sodium Potassium Chloride Carbon Dioxide Anion Gap BUN Creatinine Est Cr Clr Drug Dosing Est GFR ( Amer) Est GFR (Non-Af Amer) BUN/Creatinine Ratio Glucose POC Glucose 88 Calcium Phosphorus Total Bilirubin AST ALT Alkaline Phosphatase Total Protein Albumin Globulin Albumin/Globulin Ratio Urine Color Dark Yellow Urine Appearance Cloudy A Urine pH 5.0 Ur Specific [place] 1.016 Urine Protein 2+ H Urine Glucose (UA) 1+ H Urine Ketones Negative Urine Blood 1+ H Urine Nitrite Negative Urine Bilirubin Negative Urine Urobilinogen Negative Ur Leukocyte Esterase Negative Urine WBC (Auto) 5-10 H Urine RBC (Auto) 0-4 U Hyaline Cast (Auto) >30 H U Epithel Cells (Auto) >30 H Urine Bacteria (Auto) Negative Amorphous Sediment Present A Granular Casts 5-10 H Urine Yeast Not Reportable Ur Random Creatinine 110.3 Ur Random Sodium 84 SARS-CoV-2, RNA, NAAT 08/28/23 08/28/23 08/28/23 15:26 19:44 21:56 WBC RBC Hgb Hct MCV MCH MCHC RDW Std Deviation RDW Coeff of Alana Plt Count MPV Sodium 127 L 128 L Potassium 5.6 H 5.3 H Chloride 101 101 Carbon Dioxide 16 L 17 L Anion Gap 10 10 BUN 54 H 53 H Creatinine 3.59 H D 3.37 H Est Cr Clr Drug Dosing 21.0 22.4 Est GFR ( Amer) 18.8 20.3 Est GFR (Non-Af Amer) 16.2 17.5 BUN/Creatinine Ratio 15.0 15.7 Glucose 90 102 H POC Glucose Calcium 8.9 8.6 Phosphorus 5.5 H Total Bilirubin 0.7 AST 12 L ALT 12 Alkaline Phosphatase 251 H Total Protein 9.1 H Albumin 3.7 Globulin 5.4 H Albumin/Globulin Ratio 0.7 L Urine Color Urine Appearance Urine pH Ur Specific [place] Urine Protein Urine Glucose (UA) Urine Ketones Urine Blood Urine Nitrite Urine Bilirubin Urine Urobilinogen Ur Leukocyte Esterase Urine WBC (Auto) Urine RBC (Auto) U Hyaline Cast (Auto) U Epithel Cells (Auto) Urine Bacteria (Auto) Amorphous Sediment Granular Casts Urine Yeast Ur Random Creatinine Ur Random Sodium SARS-CoV-2, RNA, NAAT NEGATIVE 08/29/23 08/29/23 05:23 05:23 WBC 3.26 L RBC 4.17 L Hgb 12.4 L Hct 36.9 L MCV 88.5 MCH 29.7 MCHC 33.6 RDW Std Deviation 60.1 H RDW Coeff of Alana 18.3 H Plt Count 344 MPV 9.5 Sodium 130 L Potassium 4.9 Chloride 101 Carbon Dioxide 19 L Anion Gap 10 BUN 49 H Creatinine 2.78 H D Est Cr Clr Drug Dosing 27.1 Est GFR ( Amer) 25.6 Est GFR (Non-Af Amer) 22.1 BUN/Creatinine Ratio 17.6 Glucose 82 POC Glucose Calcium 8.7 Phosphorus Total Bilirubin AST ALT Alkaline Phosphatase Total Protein Albumin Globulin Albumin/Globulin Ratio Urine Color Urine Appearance Urine pH Ur Specific [place] Urine Protein Urine Glucose (UA) Urine Ketones Urine Blood Urine Nitrite Urine Bilirubin Urine Urobilinogen Ur Leukocyte Esterase Urine WBC (Auto) Urine RBC (Auto) U Hyaline Cast (Auto) U Epithel Cells (Auto) Urine Bacteria (Auto) Amorphous Sediment Granular Casts Urine Yeast Ur Random Creatinine Ur Random Sodium SARS-CoV-2, RNA, NAAT PG Care Time/CCT Total # of Minutes Spent Total Time Spent with Patient: Total time spent is greater than 50% in coordination of care (as documented) at patient's floor/unit and/or counseling patient: Coding Level of Care Code 88495 SUB INP/OBS CARE 3/50MIN Diagnoses HOMERO (acute kidney injury) N17.9 Acute hyperkalemia E87.5 HTN (hypertension) I10 Rheumatoid arthritis M06.9 Gastroenteritis K52.9 Hyponatremia E87.1 A-fib I48.91
[2023-08-29] MEDS: METOPROLOL SUCC 50MG EXT REL TAB PO SCH ×2 (10:33→21:06)
[2023-08-29] MEDS: predniSONE 5 MG TAB PO SCH (10:33)
[2023-08-29] MEDS: PANTOprazole 40 MG TAB PO SCH (10:33)
[2023-08-29] MEDS: SERTRALINE HCL 50 MG TABLET PO SCH (10:33)
[2023-08-29] MEDS: APIXABAN 2.5 MG TAB PO SCH ×2 (10:33→21:06)
--- NOTE | 2023-08-29 14:03 | Hospitalist Progress Note ---
Date of Service August 29, 2023 Assessment & Plan (1) Gastroenteritis: Plan: most likely viral in etiology clinically improved - stool studies negative - C. difficile negative - continue IV fluids -Monitor electrolytes - discontinue morphine as the patient does not have any abdominal pain anymore -Zofran as needed for nausea (2) HOMERO (acute kidney injury): Plan: Creatinine on admission was 4, now improved to 2.78 Nephrology involved Most likely HOMERO secondary to prerenal dehydration from GI loss Hyperkalemia improved Patient is on a bicarb drip per nephrology recommendation. Monitor BMP per nephrology recommendation Continue to hold lisinopril Clinically improving anion gap metabolic acidosis improving (3) Rheumatoid arthritis: Plan: Chronic RA. Pain well controlled at present -Continue Prednisone 5mg po daily Not hypotensive, not requiring stress dose of steroids (4) HTN (hypertension): Plan: Chronic. -Hold Lisinopril in setting of HOMERO May resume amlodipine if blood pressure starts creeping up -Continue Metoprolol 100mg po BID -Continue to monitor (5) A-fib: Plan: Rate control. Anticoagulated on Eliquis -Continue Metoprolol 100mg po BID -Continue Eliquis - reduce dose to 2.5mg po BID in setting of renal compromise Plan F/E/N - bicarb drip, monitor electrolytes, regular diet as tolerated Ppx - On Eliquis anticoagulation Code - Conditional - no CPR, ok with intubation and ventilation for brief treatment Admission and Anticipated Discharge Date Admission Date: August 27, 2023 Subjective patient feels better overall. Denies chest pain or shortness of breath. Making urine. Review of Systems Review of Systems: All systems reviewed & are unremarkable except as noted in Subjective Physical Exam Physical Exam: General: Awake, conversant Heart: S1, S2/regular rate and rhythm, no murmur rubs or gallops Lungs: Clear to auscultation bilaterally. Normal effort Abdomen: Soft/nontender/nondistended. No hepatosplenomegaly Extremities: No clubbing/cyanosis. No edema Behavior: Appropriate, cooperative Results & Data Results & Data Vital Signs (Past 12 Hours) Vital Signs Temp Pulse Pulse Resp BP Pulse Ox O2 Del Method 08/29/23 12:28 36.8 C 88 18 157/78 H 95 Room Air 08/29/23 08:17 36.8 C 99 H 18 151/84 H 95 Room Air 08/29/23 07:29 95 H 08/29/23 05:04 36.4 C L 86 20 145/86 H 94 Room Air Laboratory Results Abnormal lab results 08/28/23 08/28/23 08/29/23 Range/Units 15:26 19:44 05:23 WBC 3.26 L (4.8-10.8) K/ul RBC 4.17 L (4.70-6.10) M/uL Hgb 12.4 L (14.0-18.0) g/dl Hct 36.9 L (42.0-52.0) % RDW Std Deviation 60.1 H (36.4-46.3) fL RDW Coeff of Alana 18.3 H (11.5-14.5) % Sodium 127 L 128 L (136-145) mmol/L Potassium 5.6 H 5.3 H (3.5-5.1) mmol/L Carbon Dioxide 16 L 17 L (21-32) mmol/L BUN 54 H 53 H (6-23) mg/dl Creatinine 3.59 H D 3.37 H (0.6-1.4) mg/dl Glucose 102 H (70-99(Fasting)) mg/dl Phosphorus 5.5 H (2.5-4.9) mg/dl AST 12 L (13-39) U/L Alkaline Phosphatase 251 H (34-104) U/L Total Protein 9.1 H (6.0-8.3) gm/dl Globulin 5.4 H (2.5-4.0) gm/dl Albumin/Globulin Ratio 0.7 L (0.9-2) 08/29/23 Range/Units 05:23 WBC (4.8-10.8) K/ul RBC (4.70-6.10) M/uL Hgb (14.0-18.0) g/dl Hct (42.0-52.0) % RDW Std Deviation (36.4-46.3) fL RDW Coeff of Alana (11.5-14.5) % Sodium 130 L (136-145) mmol/L Potassium (3.5-5.1) mmol/L Carbon Dioxide 19 L (21-32) mmol/L BUN 49 H (6-23) mg/dl Creatinine 2.78 H D (0.6-1.4) mg/dl Glucose (70-99(Fasting)) mg/dl Phosphorus (2.5-4.9) mg/dl AST (13-39) U/L Alkaline Phosphatase (34-104) U/L Total Protein (6.0-8.3) gm/dl Globulin (2.5-4.0) gm/dl Albumin/Globulin Ratio (0.9-2) PG Care Time/CCT Total # of Minutes Spent Total Time Spent with Patient: Total time spent is greater than 50% in coordination of care (as documented) at patient's floor/unit and/or counseling patient: Coding Level of Care Code 16791 SUB INP/OBS CARE 2MIN Diagnoses Gastroenteritis K52.9 HOMERO (acute kidney injury) N17.9 Rheumatoid arthritis M06.9 HTN (hypertension) I10 A-fib I48.91
[2023-08-29 21:07] LABS: BUN Creatinine Ratio 17.5 (10-20); Calcium 8.6 mg/dl (8.6-10.3); Creatinine Clr Calc Pharmacy 32.9 ml/min; Est GFR (African American) 32.3 ml/min; Est GFR (Non-African American) 27.9 ml/min; Potassium 4.8 mmol/L (3.5-5.1)
[2023-08-29] MEDS ORDERED: PLASMA-LYTE A 1,000 ML IV SCH (22:15)
[2023-08-30 06:50] LABS: Hematocrit (blood only) 36.2 % (42.0-52.0); Mean Corpuscular Hemoglobin 29.5 pg (25.0-34.0); Mean Corpuscular Hgb Conc 33.1 g/dL (32.0-36.0); Mean Corpuscular Volume 88.9 fL (80.0-100.0); Mean Platelet Volume 9.8 fL (9.4-12.4); Platelet Count 335 K/uL (130-400); RDW Coefficient of Variation 17.7 % (11.5-14.5); RDW Standard Deviation 57.2 fL (36.4-46.3); Red Blood Count 4.07 M/uL (4.70-6.10); White Blood Count 2.24 K/ul (4.8-10.8)
[2023-08-30 07:08] LABS: BUN Creatinine Ratio 19.9 (10-20); Calcium 8.6 mg/dl (8.6-10.3); Creatinine Clr Calc Pharmacy 39.5 ml/min; Est GFR (African American) 40.2 ml/min; Est GFR (Non-African American) 34.7 ml/min; Potassium 4.6 mmol/L (3.5-5.1)
[2023-08-30] MEDS: predniSONE 5 MG TAB PO SCH (08:42)
[2023-08-30] MEDS: SERTRALINE HCL 50 MG TABLET PO SCH (08:42)
[2023-08-30] MEDS: METOPROLOL SUCC 50MG EXT REL TAB PO SCH ×2 (08:42→21:34)
[2023-08-30] MEDS: PANTOprazole 40 MG TAB PO SCH (08:42)
[2023-08-30] MEDS: APIXABAN 2.5 MG TAB PO SCH ×2 (08:42→21:34)
--- NOTE | 2023-08-30 10:30 | Nephrology Progress Note ---
Date of Service August 30, 2023 Assessment & Plan (1) HOMERO (acute kidney injury): Plan: Clinically consistent with prerenal azotemia from dehydration and superimposed ATN. Volume status notably improved. No additional diarrhea. Tolerating oral fluids. IVF stopped. Encourage PO intake. Electrolytes acceptable. No indication for [employer] MEMBER. Medications are currently appropriately dosed for kidney function. Continue to hold lisinopril. Repeat metabolic profile tomorrow AM. If discharged, check labs within 1 week. Follow up in the nephrology clinic within 1-2 weeks of discharge. (2) HTN (hypertension): Plan: BP acceptable. Antihypertensives including lisinopril and amlodipine held due to low BP and intravascular volume depletion on admission. No indication to restart therapy at this time. Close outpatient follow up. (3) Rheumatoid arthritis: Plan: Maintained on prednisone. (4) Gastroenteritis: Plan: Symptoms resolved. Document strict I/O's. (5) A-fib: Admission and Anticipated Discharge Date Admission Date: August 27, 2023 Subjective No acute events overnight. Grant was seen and evaluated with his at the bedside this AM. He feels well. IVF stopped overnight. No diarrhea. Denies abdominal pain. Appetite is good. No fluid retention or edema. Review of Systems Review of Systems: All systems reviewed & are unremarkable except as noted in HPI & below Physical Exam Constitutional: well developed; no acute distress Eyes: + anicteric sclerae; no conjunctival abnormality ENMT: Mouth: no oral mucosal abnormality and oral mucous membranes not dry Neck: normal visual inspection and trachea midline Respiratory: normal respiratory effort Auscultation: lungs clear to auscultation bilaterally Cardiovascular: Rate/Rhythm: regular rate Heart Sounds: normal S1 and normal S2 Extremities: no edema Musculoskeletal: Extremities: no cyanosis and no clubbing Skin: turgor not decreased and no jaundice Neurologic: Motor/Sensory: no tremor and no asterixis Psychiatric: Orientation: alert and oriented x 3 Results & Data Vital Signs (Past 12 Hours) Vital Signs Temp Pulse Pulse Resp BP Pulse Ox O2 Del Method 08/30/23 07:41 36.4 C L 85 18 125/80 93 Room Air 08/30/23 07:10 86 08/30/23 05:03 36.4 C L 90 18 116/72 95 Room Air 08/30/23 00:00 36.5 C 98 H 20 164/60 H 94 Room Air 08/29/23 23:44 91 H Laboratory Results Laboratory Results - last 24 hr 08/29/23 08/30/23 08/30/23 19:40 05:38 05:38 WBC 2.24 L RBC 4.07 L Hgb 12.0 L Hct 36.2 L MCV 88.9 MCH 29.5 MCHC 33.1 RDW Std Deviation 57.2 H RDW Coeff of Alana 17.7 H Plt Count 335 MPV 9.8 Sodium 131 L 133 L Potassium 4.8 4.6 Chloride 99 101 Carbon Dioxide 22 24 Anion Gap 10 8 BUN 40 H 38 H Creatinine 2.29 H D 1.91 H D Est Cr Clr Drug Dosing 32.9 39.5 Est GFR ( Amer) 32.3 40.2 Est GFR (Non-Af Amer) 27.9 34.7 BUN/Creatinine Ratio 17.5 19.9 Glucose 97 82 Calcium 8.6 8.6 PG Care Time/CCT Total # of Minutes Spent Total Time Spent with Patient: Total time spent is greater than 50% in coordination of care (as documented) at patient's floor/unit and/or counseling patient: Coding Level of Care Code 72494 SUB INP/OBS CARE 3/50MIN Diagnoses HOMERO (acute kidney injury) N17.9 HTN (hypertension) I10 Rheumatoid arthritis M06.9 Gastroenteritis K52.9 A-fib I48.91
--- NOTE | 2023-08-30 12:50 | Hospitalist Progress Note ---
Date of Service August 30, 2023 Assessment & Plan (1) Gastroenteritis: Plan: most likely viral in etiology clinically improved - stool studies negative - C. difficile negative IV fluids discontinued -Monitor electrolytes resolved -Zofran as needed for nausea (2) HOMERO (acute kidney injury): Plan: Creatinine on admission was 4, now improved to 1.9 Nephrology involved Most likely HOMERO secondary to prerenal dehydration from GI loss Hyperkalemia improved patient is off of bicarb drip Monitor BMP Continue to hold lisinopril Clinically improving anion gap metabolic acidosis improved (3) Rheumatoid arthritis: Plan: Chronic RA. Pain well controlled at present -Continue Prednisone 5mg po daily Not hypotensive, not requiring stress dose of steroids (4) HTN (hypertension): Plan: Chronic. -Hold Lisinopril in setting of HOMERO May resume amlodipine if blood pressure starts creeping up -Continue Metoprolol 100mg po BID -Continue to monitor (5) A-fib: Plan: Rate control. Anticoagulated on Eliquis -Continue Metoprolol 100mg po BID -Continue Eliquis - reduce dose to 2.5mg po BID in setting of renal compromise Plan F/E/N - regular diet as tolerated. Off of IV fluids Ppx - On Eliquis anticoagulation Code - Conditional - no CPR, ok with intubation and ventilation for brief treatment likely discharge tomorrow Admission and Anticipated Discharge Date Admission Date: August 27, 2023 Subjective patient feels well. Denies chest pain or shortness of breath. Physical Exam Physical Exam: General: Awake, conversant Heart: S1, S2/regular rate and rhythm, no murmur rubs or gallops Lungs: Clear to auscultation bilaterally. Normal effort Abdomen: Soft/nontender/nondistended. No hepatosplenomegaly Extremities: No clubbing/cyanosis. No edema Behavior: Appropriate, cooperative Results & Data Results & Data Vital Signs (Past 12 Hours) Vital Signs Temp Pulse Pulse Resp BP Pulse Ox O2 Del Method 08/30/23 11:24 37.0 C 88 18 124/77 94 Room Air 08/30/23 07:41 36.4 C L 85 18 125/80 93 Room Air 08/30/23 07:10 86 08/30/23 05:03 36.4 C L 90 18 116/72 95 Room Air PG Care Time/CCT Total # of Minutes Spent Total Time Spent with Patient: Total time spent is greater than 50% in coordination of care (as documented) at patient's floor/unit and/or counseling patient: Coding Level of Care Code 35068 SUB INP/OBS CARE 235MIN Diagnoses Gastroenteritis K52.9 HOMERO (acute kidney injury) N17.9 Rheumatoid arthritis M06.9 HTN (hypertension) I10 A-fib I48.91
[2023-08-31 06:09] LABS: Hematocrit (blood only) 37.5 % (42.0-52.0); Hemoglobin 12.2 g/dl (14.0-18.0); Mean Corpuscular Hemoglobin 29.5 pg (25.0-34.0); Mean Corpuscular Hgb Conc 32.5 g/dL (32.0-36.0); Mean Corpuscular Volume 90.8 fL (80.0-100.0); Mean Platelet Volume 9.1 fL (9.4-12.4); Platelet Count 321 K/uL (130-400); RDW Coefficient of Variation 17.8 % (11.5-14.5); RDW Standard Deviation 59.1 fL (36.4-46.3); Red Blood Count 4.13 M/uL (4.70-6.10); White Blood Count 2.59 K/ul (4.8-10.8)
[2023-08-31 06:33] LABS: BUN Creatinine Ratio 19.3 (10-20); Calcium 9.2 mg/dl (8.6-10.3); Creatinine Clr Calc Pharmacy 46.9 ml/min; Est GFR (African American) 49.5 ml/min; Est GFR (Non-African American) 42.7 ml/min; Potassium 4.7 mmol/L (3.5-5.1)
[2023-08-31] MEDS: METOPROLOL SUCC 50MG EXT REL TAB PO SCH (08:13)
[2023-08-31] MEDS: SERTRALINE HCL 50 MG TABLET PO SCH (08:14)
[2023-08-31] MEDS: predniSONE 5 MG TAB PO SCH (08:14)
[2023-08-31] MEDS: APIXABAN 2.5 MG TAB PO SCH (08:14)
[2023-08-31] MEDS: PANTOprazole 40 MG TAB PO SCH (08:14)
--- NOTE | 2023-08-31 10:57 | Nephrology Progress Note ---
Date of Service August 31, 2023 Assessment & Plan (1) HOMERO (acute kidney injury): Plan: Clinically consistent with prerenal azotemia from dehydration and superimposed ATN. Volume status notably improved. No additional diarrhea. Tolerating oral fluids. IVF stopped. Encourage PO intake. Electrolytes acceptable. Medications are currently appropriately dosed for kidney function. I can discuss restarting lisinopril at outpatient follow up but reasonable to continue to hold for now. If discharged, check labs within 1 week. Follow up with me in the nephrology clinic within 1-2 weeks of discharge. (2) HTN (hypertension): Plan: BP acceptable. Lisinopril held due to low BP and intravascular volume depletion on admission. No indication to restart therapy at this time. Close outpatient fo llow up. (3) Rheumatoid arthritis: Plan: Maintained on prednisone. (4) Gastroenteritis: Plan: Symptoms resolved. Document strict I/O's. (5) A-fib: Admission and Anticipated Discharge Date Admission Date: August 27, 2023 Subjective No acute events overnight. No complaints this AM. Review of Systems Review of Systems: All systems reviewed & are unremarkable except as noted in HPI & below Physical Exam Constitutional: well developed; no acute distress Eyes: + anicteric sclerae; no conjunctival abnormality ENMT: Mouth: no oral mucosal abnormality and oral mucous membranes not dry Neck: normal visual inspection and trachea midline Respiratory: normal respiratory effort Auscultation: lungs clear to auscultation bilaterally Cardiovascular: Rate/Rhythm: regular rate Heart Sounds: normal S1 and normal S2 Extremities: no edema Musculoskeletal: Extremities: no cyanosis and no clubbing Skin: turgor not decreased and no jaundice Neurologic: Motor/Sensory: no tremor and no asterixis Psychiatric: Orientation: alert and oriented x 3 Results & Data Vital Signs (Past 12 Hours) Vital Signs Temp Pulse Pulse Resp BP Pulse Ox O2 Del Method 08/31/23 07:41 36.4 C L 77 16 147/77 H 94 Room Air 08/31/23 07:27 71 08/31/23 03:32 36.4 C L 93 H 20 151/77 H 94 Room Air 08/31/23 00:01 36.5 C 89 20 167/79 H 96 Room Air 08/30/23 23:15 95 H Laboratory Results Laboratory Results - last 24 hr 08/31/23 08/31/23 08/31/23 05:41 05:41 Unknown WBC 2.59 L RBC 4.13 L Hgb 12.2 L Hct 37.5 L MCV 90.8 MCH 29.5 MCHC 32.5 RDW Std Deviation 59.1 H RDW Coeff of Alana 17.8 H Plt Count 321 MPV 9.1 L Sodium 134 L Potassium 4.7 Chloride 103 Carbon Dioxide 24 Anion Gap 7 BUN 31 H Creatinine 1.61 H D Est Cr Clr Drug Dosing 46.9 Est GFR ( Amer) 49.5 Est GFR (Non-Af Amer) 42.7 BUN/Creatinine Ratio 19.3 Glucose 90 Calcium 9.2 SARS-CoV-2 RNA (BACILIO) Pending PG Care Time/CCT Total # of Minutes Spent Total Time Spent with Patient: Total time spent is greater than 50% in coordination of care (as documented) at patient's floor/unit and/or counseling patient: Coding Level of Care Code 93222 SUB INP/OBS CARE 3/50MIN Diagnoses HOMERO (acute kidney injury) N17.9 HTN (hypertension) I10 Rheumatoid arthritis M06.9 Gastroenteritis K52.9 A-fib I48.91
[2023-08-31] MEDS ORDERED: ACETAMINOPHEN 500 MG TAB PO PRN (11:32)
--- NOTE | 2023-08-31 11:39 | Discharge Summary ---
Date of Service August 31, 2023 Admission HPI Per Admitting Provider Grant Quinonez is a 68yo male with history of atrial fibrillation on Eliquis anticoagulation, RA on Humira and chronic Prednisone 5mg daily as well as HTN presenting with 2 days of nausea, vomiting and diarrhea. Patient reports sudden onset on nausea with 2 episodes of non-bloody/non-bilious vomiting and ongoing watery non-bloody diarrhea. Patient also with upper abdominal pain, 8/10 in severity. He has not been eating or drinking well over the last two days. He reports generalized weakness and fatigue. Patient has been taking Pepto Bismol at home with no relief. He denies sick contacts, recent travel. He is on [employer] water. No recent antibiotics, hospitalizations or ingestion of raw/undercooked/restaurant food. Patient denies fever, chills, chest pain, cough, SOB, dysuria. No additional complaints at this time. In the ER he is afebrile, tachycardic otherwise HD stable. Saturations of 88% on room air. Placed on NC with improvement. ER Couse: NSS x 2L Zofran Admission Exam Per Admitting Provider General: patient resting comfortably, NAD, non-toxic in appearance, AA&O x 4 Skin: warm, dry, intact, no rashes or lesions HEENT: NC/AT, PERRL, EOMI, anicteric sclera, conjunctiva without injection, external ear normal to inspection and nontender, nares patent, dry mucus membranes, dentition intact, no oropharyngeal lesions, neck supple, trachea midline, no LAD, no thyromegaly, no JVD Heart: +S1/S2, irregularly irregular, no m/r/g Lungs: equal air entry bilaterally, no rales/rhonchi/wheezes Abd: +BS, soft, NT/ND, no masses/organomegaly/ascites Ext: warm, 2+ pulses in UE/LE bilaterally, no clubbing/cyanosis or edema, right wrist swelling Neuro: nonfocal, patient AA&O x 4, speech intact, no facial droop, moving all extremities on command with equal strength 5/5 Principal Diagnosis 1. Viral gastroenteritis 2. Acute kidney injury with hyperkalemia due to prerenal dehydration from GI losses, improved Discharge Exam General: Awake, conversant Heart: S1, S2/regular rate and rhythm, no murmur rubs or gallops Lungs: Clear to auscultation bilaterally. Normal effort Abdomen: Soft/nontender/nondistended. No hepatosplenomegaly Extremities: No clubbing/cyanosis. No edema Behavior: Appropriate, cooperative Discharge Data Allergies Allergy/AdvReac Type Severity Reaction Status Date / Time No Known Allergies Allergy Unverified 08/27/23 21:13 Consultations 08/27/23 21:38 ED Decision to Admit Stat 08/28/23 12:26 Consult Nephrology Routine 08/30/23 12:53 Consult [facility] landscape manager Routine Ordered Studies 08/27/23 20:16 CT abd pelvis wo con Stat Hospital Course (1) Gastroenteritis: most likely viral in etiology clinically improved - stool studies negative - C. difficile negative IV fluids discontinued resolved (2) HOMERO (acute kidney injury): Creatinine on admission was 4, now improved to 1.6 Nephrology involved Most likely HOMERO secondary to prerenal dehydration from GI loss Hyperkalemia improved patient is off of bicarb drip Continue to hold lisinopril Clinically improving anion gap metabolic acidosis improved Patient will follow-up with nephrology outpatient (3) Rheumatoid arthritis: Chronic RA. Pain well controlled at present -Continue Prednisone 5mg po daily Not hypotensive, not requiring stress dose of steroids (4) HTN (hypertension): Chronic. -Hold Lisinopril in setting of HOMERO resumed amlodipine today as blood pressure started to creep up -Continue Metoprolol 100mg po BID (5) A-fib: Rate control. Anticoagulated on Eliquis -Continue Metoprolol 100mg po BID -Continue Eliquis Plan F/E/N - regular diet as tolerated. Off of IV fluids Ppx - On Eliquis anticoagulation Code - Conditional - no CPR, ok with intubation and ventilation for brief treatment discharge today Total Time Total Time Spent Total Time Spent (In Minutes): 35 Discharge Plan Discharge Items Patient Disposition: Home - Self-Care Reason For Visit: DIARRHEA, DEHYDRATION, HOMERO Discharge Diagnosis: 1. Viral gastroenteritis 2. Acute kidney injury with hyperkalemia due to prerenal dehydration from GI losses, improved Condition on Discharge: Fair Activity: Resume your previous activity Non-emergency contact: Primary Care Provider Call non-emergency contact if: you have any medication questions and your symptoms worsen Follow-up/Referrals: Tali Doe PA-C [Primary Care Provider] - (Please Schedule a discharge follow up appt. within 7-10 days. ) Diet: Heart Healthy Addtl Attending Provider Instructions: Advised to follow-up with PCP in 1 week Advised to follow-up with nephrology in 2 weeks Pending Studies at Discharge: No Stand-Alone Forms: My [facility] Medications and DC Order Prescriptions: Continued Eliquis 5 mg tablet 5 mg PO BID metoprolol succinate 100 mg tablet extended release 24 hr 100 mg PO BID amlodipine 10 mg tablet 10 mg PO DAILY prednisone 5 mg tablet 5 mg PO DAILY sertraline 50 mg tablet 50 mg PO DAILY Humira Pen 40 mg/0.8 mL pen injector kit 40 mg SUBCUT UD Discontinued lisinopril 40 mg tablet 40 mg PO DAILY Discharge Orders: Discharge Order (Routine); Ordered 08/31/23 Ordered By: Vanessa Gordon Admission Data Admit Date/Time: 08/27/23 21:57 Attending Provider: Vanessa Gordon Admit Provider: Sariah Knox Primary Care Provider: Tali Doe Other Providers: Sariah Knox ; Pierce Araiza Other Interventions: Discharge Summary Assessment (RN) Last Done: 08/31/23 11:30 Coding Level of Care Code 14908 INP/OBS DISCH >30 MIN Diagnoses Gastroenteritis K52.9 HOMERO (acute kidney injury) N17.9 Rheumatoid arthritis M06.9 HTN (hypertension) I10 A-fib I48.91
--- NOTE | 2023-09-02 16:00 | Coding Query ---
CODING QUERY To promote full compliance with coding requirements relating to patient care, provider participation is requested in all cases of chemic mangler uncertainty. Please assist us with the question(s) below: Coding Question(s): Pt admitted with viral gastroenteritis. Seeking to clarify HOMERO . 08/31 Nephro progress note stated HOMERO was clinically consistent with prerenal azotemia from dehydration and Superimposted ATN. Please check below the phrase that describes the ATN/HOMERO. Thanks for your help. Roderick Cazares [facility] Physician's Response(s): ___yes Patient had ATN, Present on admission Patient had HOMERO, Present on admission Other: Please document: Principal Diagnosis: "that condition established after study, to be chiefly responsible for occasioning the admission of the patient to the hospital for care." Co-Existing Principal Diagnosis: "when two or more diagnoses equally meet the criteria for principal diagnosis as determined by the circumstances of admission, diagnostic work up, and/or therapy provided, and the Alphabetic Index, Tabular List, or another coding guideline does not provide sequencing direction, any one of the diagnoses may be sequenced first." "When the physician has documented what appears to be a current diagnosis in the body of the record, but has not included the diagnosis in the final diagnostic statement, the physician should be asked whether the diagnosis should be added." (Source Coding Clinic 2 QTR90. p3-4) MANISHA
== END 2023-08-31 14:27 | disposition home or self-care (01) | DRG 391 ==
LOC: ED 19:54 → SUATTDRO 21:57 → 2N 21:57

== ENCOUNTER 2024-12-26 12:34 | Inpatient (IN) ==
--- NOTE | 2024-12-26 12:59 | Emergency Department Note ---
Impression & Plan Diarrhea, Acute hyperkalemia, Acute hypotension, Acute dehydration, HOMERO (acute kidney injury), Syncope ED Provider Note NAME: MONTY DARDEN AGE: 69 SEX: M : 1955 ARRIVES VIA: Ambulance INFORMANT: Patient, EMS ED PROVIDER(S): Remy Landeros DO CHIEF COMPLAINT: Syncope HPI: The patient is a 69-year-old male who presented to the emergency department for an evaluation after an syncopal episode. The patient has been having loose stools which have been watery over the course of the last 3 to 4 days. He has been noticing generalized weakness. When he went to stand up today he did have a syncopal episode. He is not sure what happened. He thinks he may have struck his head. He denies having any chest pain or difficulty breathing. He has noticed generalized weakness over the course the last few days as well. The patient denies having any headache. He does complain of some vague abdominal pain. He was able to stand and complains of no hip or lower extremity pain. The patient called 911 and arrived via ambulance. ROS: See above HPI for pertinent positives & negatives. A total of 10 systems reviewed and were otherwise negative. PAST MEDICAL HISTORY: See Below PAST SURGICAL HISTORY: See Below FAMILY HISTORY: See Below SOCIAL HISTORY: See Below HOME MEDICATIONS: See Below ALLERGIES: See Below VITALS: See Below PHYSICAL EXAMINATION: GENERAL: The patient is awake to verbal commands. Otherwise he is listless. EYES: The conjunctivae are clear. The pupils are round and reactive. EARS, NOSE, MOUTH AND THROAT: The nose is without any evidence of any deformity. Mucous membranes are. NECK: The neck is nontender and supple. RESPIRATORY: Normal respiratory effort is noted there is no evidence of wheezing rhonchi or rales CARDIOVASCULAR: Regular heart sounds were noted to auscultation. There is no definite murmur. GASTROINTESTINAL: The abdomen is distended. There is diffuse tenderness palpation but no guarding or rigidity. MUSCULOSKELETAL/EXTREMITIES: There is no evidence of gross deformity full range of motion is noted in the hips and shoulders. SKIN: Trace pedal edema was noted bilaterally. Skin was cool and dry. NEUROLOGIC: Patient is awake and oriented to person place and situation. Strength is symmetric but diminished. MEDICAL DECISION MAKING: The patient is a 69-year-old male who presented to the emergency department by ambulance. The patient had an episode of syncope. He states he has had loose stool over the course the last few days. He has been feeling weak and lightheaded. The patient did not have any focal neurologic deficits. He was treated with multiple IV fluid boluses. He was also given IV antibiotics and the possibility of sepsis given his hypotension. I discussed the patient's laboratory and radiographic studies with him. He does appear to have signs of diarrheal illness on CT scan. His abdominal exam was not consistent with acute surgical abdomen. I discussed the patient's condition with the on-call [facility]. They have agreed to evaluate the patient in the emergency department. The patient was not continuously hypotensive. He did respond well to fluids. He was also placed on supplemental oxygen. Triage Nursing notes reviewed. Prior medical records reviewed Vital Signs: reviewed and remarkable for initial hypotension tachycardia and hypoxia. Differential diagnosis: Vasovagal event, dehydration, infection, hypoglycemia, electrolyte abnormalities, cardiac sources, intracerebral event, pulmonary embolism, seizure, toxicologic, neurologic, as well as other pathologies. ER treatment provided: See below Diagnostics interpreted by me: ECG: EKG was obtained in the emergency department. My interpretation is atrial fibrillation at [address] abnormalities were noted. This was compared to a tracing from September 11, 2023. No changes were noted. Cardiac Monitoring: An order was placed for continuous cardiac monitoring. The monitor shows a rate of 93 bpm with atrial fibrillation. Laboratory studies: As stated above and show below. Imaging studies: See below. Radiographic imaging was reviewed by myself Consultation(s): I discussed this case with Dr. Mathews [facility] ED COURSE: Procedures: none Critical Care: I have personally spent greater than 45 minutes of critical care time in the direct management of this patient. This includes bedside care, interpretation of diagnostic studies, and testing, discussion with consultants, patient, and family members, and other required patient management activities. This 45 minutes is in excess of all separately billable procedures. Past Med/Surg History Problem List (Updated 12/26/24 @ 14:31 by Remy Landeros DO) Syncope (Acute) HOMERO (acute kidney injury) (Acute) Diarrhea (Acute) GERD with esophagitis Colonic polyp Esophagitis Elevated sed rate Hyperchloremic metabolic acidosis GERD (gastroesophageal reflux disease) Diarrhea Acute hypotension (Acute) Acute dehydration (Acute) Hyponatremia (Acute) Acute hyperkalemia (Acute) Rheumatoid arthritis HTN (hypertension) (Chronic) A-fib (Acute) HOMERO (acute kidney injury) (Acute) Gastroenteritis (Acute) Elevated lactic acid level (Acute) Surgical History No significant past surgical history Family History Other No significant family history Social History Smoking Status: Former smoker Tobacco Type: Cigarettes Second Hand Exposure: No; Do You Dip or Chew Tobacco: No; Hx Alcohol Use: Yes Alcohol type: beer Hx Substance Use: No Preferred Language: Latvian Communication Ability: Effective Sexton Helper Required: No Beliefs That Will Affect Care: None Current Living Situation: Family Feels Safe at Home: Yes Assistive Devices: None Allergies Allergies Allergy/AdvReac Type Severity Reaction Status Date / Time No Known Allergies Allergy Unverified 09/29/23 12:56 Home Meds Home Medications Medication Instructions Recorded Confirmed adalimumab 40 mg/0.8 mL 40 mg subcut .Q2WK 01/17/23 09/29/23 subcutaneous pen kit (Humira Pen) prednisone 5 mg tablet 5 mg PO DAILY 01/17/23 09/29/23 sertraline 50 mg tablet 50 mg PO DAILY 01/17/23 09/29/23 amlodipine 10 mg tablet 10 mg PO DAILY 08/27/23 09/29/23 apixaban 5 mg tablet (Eliquis) 5 mg PO BID 08/27/23 09/29/23 metoprolol succinate 100 mg 100 mg PO BID 08/27/23 09/29/23 tablet,extended release 24 hr Previous Rx's Medication Instructions Recorded loperamide 2 mg capsule 2 mg PO Q6H PRN loose stool #20 09/14/23 caps pantoprazole 40 mg tablet,delayed 40 mg PO BID #60 tabs 09/14/23 release Results & Data (ED) Vital Signs Vital Signs - 24 hr 12/26/24 12:23 12/26/24 12:49 12/26/24 12:51 Temperature 36.6 C Temperature Source Oral Pulse Rate 115 H 107 H Pulse Rate from SpO2 Sensor Respiratory Rate 18 16 Blood Pressure 70/46 L 103/69 Blood Pressure Mean 54 78 Pulse Oximetry 96 Oxygen Delivery Method Nasal Cannula Oxygen Flow Rate 4 Sepsis Recent Fever Within 48 Hours No Sepsis New/Unexplained Change in Mental Status N/A Sepsis Action Taken by Nursing Physician Notified Oxygen Flow Rate - Titration Pulse Oximetry Post Tiitration 12/26/24 13:03 12/26/24 13:05 12/26/24 13:05 Temperature Temperature Source Pulse Rate 98 H Pulse Rate from SpO2 Sensor 84 Respiratory Rate 16 Blood Pressure Blood Pressure Mean Pulse Oximetry 88 L 88 L Oxygen Delivery Method Room Air Room Air Oxygen Flow Rate Sepsis Recent Fever Within 48 Hours Sepsis New/Unexplained Change in Mental Status Sepsis Action Taken by Nursing Oxygen Flow Rate - Titration 2 Pulse Oximetry Post Tiitration 93 12/26/24 13:05 12/26/24 13:24 12/26/24 13:32 Temperature Temperature Source Pulse Rate 93 H Pulse Rate from SpO2 Sensor Respiratory Rate Blood Pressure 96/48 L 116/63 Blood Pressure Mean 62 82 Pulse Oximetry Oxygen Delivery Method Oxygen Flow Rate Sepsis Recent Fever Within 48 Hours Sepsis New/Unexplained Change in Mental Status Sepsis Action Taken by Nursing Oxygen Flow Rate - Titration Pulse Oximetry Post Tiitration Home Medications Current Medication List: was personally reviewed by me Laboratory Data Attestation: I reviewed the patient's lab results. 12/26/24 12:56 12/26/24 12:56 Lab Results 12/26/24 12/26/24 12/26/24 Range/Units 12:49 12:55 12:56 WBC 5.36 (4.8-10.8) K/ul RBC 4.45 L (4.70-6.10) M/uL Hgb 11.6 L (14.0-18.0) g/dl POC Hgb (14.0-18.0) g/dl Hct 35.5 L (42.0-52.0) % POC Hct (42-52) % MCV 79.8 L (80.0-100.0) fL MCH 26.1 (25.0-34.0) pg MCHC 32.7 (32.0-36.0) g/dL RDW Std Deviation 46.9 H (36.4-46.3) fL RDW Coeff of Alana 16.3 H (11.5-14.5) % Plt Count 697 H (130-400) K/uL MPV 9.7 (9.4-12.4) fL Immature Gran % (Auto) 0.6 % Neut % (Auto) 73.5 % Lymph % (Auto) 11.9 % Travis % (Auto) 7.1 % Eos % (Auto) 6.2 % Baso % (Auto) 0.7 % Neut # (Auto) 3.94 (1.40-6.50) K/uL Lymph # (Auto) 0.64 L (1.20-3.40) K/uL Travis # (Auto) 0.38 (0.11-0.59) K/uL Eos # (Auto) 0.33 (0.00-0.50) K/uL Baso # (Auto) 0.04 (0.00-0.20) K/uL Immature Gran # (Auto) 0.03 (0.01-0.20) K/uL PT 12.5 H (9.0-12.0) Seconds INR 1.2 H (0.9-1.1) APTT 36 H (21-31) Seconds PTT Ratio 1.3 VBG pH 7.30 L (7.36-7.41) VBG pCO2 42 (38-50) mmHg VBG pO2 30 mmHg VBG HCO3 21 mmol/L VBG O2 Saturation < 60.0 % VBG Base Excess -5.5 mEq/L POC Sodium (135-144) mmol/L Sodium 130 L (136-145) mmol/L POC Potassium (3.3-5.0) mmol/L Potassium 5.1 (3.5-5.1) mmol/L POC Chloride (101-112) mmol/L Chloride 94 L (98-107) mmol/L Carbon Dioxide 20 L (21-32) mmol/L POC Total CO2 (24-31) mmol/L Anion Gap 16 H (3-11) POC Anion Gap (16-25) mmol/L POC BUN (7-18) mg/dl BUN 46 H (6-23) mg/dl Creatinine 4.21 H (0.6-1.4) mg/dl POC Creatinine (0.6-1.3) mg/dl Est Cr Clr Drug Dosing Not Reportable eGFR 14.34 BUN/Creatinine Ratio 10.9 (10-20) Glucose 124 H (70-99(Fasting)) mg/dl POC Glucose (other) (70-99) mg/dl Calcium 9.6 (8.6-10.3) mg/dl POC Ioniz Calcium Hakan (1.12-1.32) mmol/l Magnesium 2.4 (1.7-2.4) mg/dl Total Bilirubin 0.6 (0.2-1.0) mg/dl Direct Bilirubin 0.1 (0-0.2) mg/dl AST 10 L (13-39) U/L ALT 11 (7-52) U/L Alkaline Phosphatase 277 H (34-104) U/L Troponin I High Sens 7.2 (0-20) pg/ml Total Protein 10.6 H (6.0-8.3) gm/dl Albumin 4.5 (3.4-5.0) gm/dl Procalcitonin 1.24 H (0-0.5) ng/ml Random Cortisol 24.20 mcg/dl Blood Type AB Positive Antibody Screen NEGATIVE 12/26/24 Range/Units 12:58 WBC (4.8-10.8) K/ul RBC (4.70-6.10) M/uL Hgb (14.0-18.0) g/dl POC Hgb 12.9 L (14.0-18.0) g/dl Hct (42.0-52.0) % POC Hct 38 L (42-52) % MCV (80.0-100.0) fL MCH (25.0-34.0) pg MCHC (32.0-36.0) g/dL RDW Std Deviation (36.4-46.3) fL RDW Coeff of Alana (11.5-14.5) % Plt Count (130-400) K/uL MPV (9.4-12.4) fL Immature Gran % (Auto) % Neut % (Auto) % Lymph % (Auto) % Travis % (Auto) % Eos % (Auto) % Baso % (Auto) % Neut # (Auto) (1.40-6.50) K/uL Lymph # (Auto) (1.20-3.40) K/uL Travis # (Auto) (0.11-0.59) K/uL Eos # (Auto) (0.00-0.50) K/uL Baso # (Auto) (0.00-0.20) K/uL Immature Gran # (Auto) (0.01-0.20) K/uL PT (9.0-12.0) Seconds INR (0.9-1.1) APTT (21-31) Seconds PTT Ratio VBG pH (7.36-7.41) VBG pCO2 (38-50) mmHg VBG pO2 mmHg VBG HCO3 mmol/L VBG O2 Saturation % VBG Base Excess mEq/L POC Sodium 132 L (135-144) mmol/L Sodium (136-145) mmol/L POC Potassium 5.2 H (3.3-5.0) mmol/L Potassium (3.5-5.1) mmol/L POC Chloride 100 L (101-112) mmol/L Chloride (98-107) mmol/L Carbon Dioxide (21-32) mmol/L POC Total CO2 21 L (24-31) mmol/L Anion Gap (3-11) POC Anion Gap 18.0 (16-25) mmol/L POC BUN 44 H (7-18) mg/dl BUN (6-23) mg/dl Creatinine (0.6-1.4) mg/dl POC Creatinine 4.8 H* (0.6-1.3) mg/dl Est Cr Clr Drug Dosing eGFR BUN/Creatinine Ratio (10-20) Glucose (70-99(Fasting)) mg/dl POC Glucose (other) 132 H (70-99) mg/dl Calcium (8.6-10.3) mg/dl POC Ioniz Calcium Hakan 1.07 L (1.12-1.32) mmol/l Magnesium (1.7-2.4) mg/dl Total Bilirubin (0.2-1.0) mg/dl Direct Bilirubin (0-0.2) mg/dl AST (13-39) U/L ALT (7-52) U/L Alkaline Phosphatase (34-104) U/L Troponin I High Sens (0-20) pg/ml Total Protein (6.0-8.3) gm/dl Albumin (3.4-5.0) gm/dl Procalcitonin (0-0.5) ng/ml Random Cortisol mcg/dl Blood Type Antibody Screen Administered Medications Lactated Ringer's (Lr) 1,000 mls @ 999 mls/hr IV .Q1H1M ONE Stop: 12/26/24 14:39 Last Admin: 12/26/24 13:41 Dose: 999 mls/hr Documented By: EMERALD Sodium Bicarbonate 150 meq/ (Sterile Water) 1,150 mls @ 150 mls/hr IV .Q7H40M CHEMO Stop: 12/27/24 05:19 Last Admin: 12/26/24 14:21 Dose: 150 mls/hr Documented By: RYNE Sodium Chloride (Nss) 500 mls @ 999 mls/hr IV .Q31M ONE Stop: 12/26/24 14:41 Last Admin: 12/26/24 14:21 Dose: 999 mls/hr Documented By: RYNE Sodium Chloride (Nss) 1,000 mls @ 999 mls/hr IV .Q1H1M ONE Stop: 12/26/24 15:29 Last Admin: 12/26/24 13:30 Dose: 999 mls/hr Documented By: RYNE Discontinued Medications Sodium Chloride (Nss) 1,000 mls @ 999 mls/hr IV .Q1H1M ONE Stop: 12/26/24 13:48 Last Infusion: 12/26/24 14:31 Dose: Infused Documented By: Admin: 12/26/24 13:01 Dose: 999 mls/hr Documented By: EMERALD Cefepime HCl (Maxipime 2000mg) 2,000 mg in 20 mls @ 5 mls/min IV NOW STA; Protocol Stop: 12/26/24 14:14 Last Admin: 12/26/24 14:20 Dose: 5 mls/min Documented By: RYNE Imaging Data Attestation: I personally reviewed and interpreted this imaging study as follows: My Impression: CT of the brain was obtained in the emergency department. There is no mass effect, final report below. CT of the chest was obtained in the emergency department. There was no definite infiltrate or free air, final report below. CT of the abdomen and pelvis was obtained in the emergency department. My interpretation is no free air or definite bowel obstruction, final report below. Radiologist's Impression: Cervical Spine CT 12/26/24 12:48 CT cervical spine wo con CLINICAL HISTORY: 69 years-old Male with trauma. Acute neck injury status post fall COMPARISON: Head CT of same day, CT chest, abdomen and pelvis Monday, CT abdomen and pelvis 08/27/2023. TECHNIQUE: Multiple axial CT images of the cervical spine were obtained without contrast. A dose lowering technique was utilized adhering to the principles of ALARA. FINDINGS: Demineralized appearance of the bones. Ill-defined sclerosis noted throughout the osseous structures. Moderate mid to lower cervical spine intervertebral disc space narrowing. Multilevel facet arthrosis, severe on the left at several levels. No acute fracture, subluxation or endplate erosion. Mild mid cervical dextroscoliosis. The cervical soft tissues appear unremarkable. Pulmonary emphysema with pulmonary nodules. Chest CT dictated separately. Severe calcified plaque within the bilateral carotid bulbs. IMPRESSION: 1. No acute cervical spine fracture or subluxation. 2. Ill-defined sclerotic foci throughout the skeletal structures are suspicious for metastasis. Metabolic etiologies or osseous lymphomatous involvement are additional differential considerations. Follow-up with hematology oncology recommended. ACT 112: Negative or not required by law. The above report was generated using voice recognition software. It may contain grammatical, syntax or spelling errors. Electronically signed by: Milan Smith M.D. 12/26/2024 2:03 PM Chest X-Ray 12/26/24 12:48 XR chest 1V portable CLINICAL HISTORY: Sepsis COMPARISON STUDY: 09/11/2023 FINDINGS: Heart size and pulmonary vasculature are normal. No effusion, consolidation, or pneumothorax. IMPRESSION: No acute findings. ACT 112: Negative or not required by law. Electronically signed by: Edinson Camara M.D. 12/26/2024 1:[address] 12/26/24 12:48 CT head/brain wo con CLINICAL HISTORY: 69 years-old Male with trauma. Acute head trauma TECHNIQUE: Multiple axial CT images of the head were obtained without contrast. A dose lowering technique was utilized adhering to the principles of ALARA. COMPARISON: CT chest, abdomen and pelvis of same day FINDINGS: No acute intracranial hemorrhage, midline shift, intracranial mass, hydrocephalus, territorial ischemia or acute extra-axial collection. Asymmetric atrophy of the extra-axial space adjacent to the right frontal lobe compared to the left measures 9 mm while the left measures 5 mm Involutional changes, notably with bifrontal cerebral atrophy. White matter hypodensities suggestive of chronic microvascular ischemic disease. The calvarium is intact. Tiny left maxillary air-fluid level. Mastoid air cells are clear. IMPRESSION: 1. No acute intracranial abnormality. 2. Involutional changes with chronic microvascular ischemic disease. 3. Asymmetric prominence of the extra-axial spaces adjacent to the frontal lobes which may be secondary to atrophy. Small chronic right-sided subdural hematoma versus hygroma are differential considerations. ACT 112: Negative or not required by law. The above report was generated using voice recognition software. It may contain grammatical, syntax or spelling errors. Electronically signed by: Milan Smith M.D. 12/26/2024 1:58 PM Abdomen/Pelvis CT 12/26/24 13:00 CT chest diagnostic wo con, CT abd pelvis wo con CT DOSE: 3051.47 mGy.cm CLINICAL HISTORY: 69 years-old Male with syncope. Acute syncope with diarrhea, chest and abdominal pain TECHNIQUE: Multiaxial CT images of the chest, abdomen and pelvis were performed without contrast. A dose lowering technique was utilized adhering to the principles of ALARA. COMPARISON: Chest radiograph 01/17/2023, CT abdomen and pelvis 08/27/2023 FINDINGS: CT CHEST: No thyroid nodule. Indeterminate 1.4 x 1.1 cm left axillary lymph node on image 62. Bilateral gynecomastia. No pathologically enlarged mediastinal or hilar lymph nodes. Epicardial lymph nodes measure up to 7 mm in short axis. Upper abdominal lymph nodes include periportal adenopathy measuring up to 1.5 cm. Heart is mildly enlarged. Extensive coronary artery calcifications. Atherosclerosis of aorta without aneurysm. Air within the right atrium and brachiocephalic veins, likely from IV catheter. Mild linear bibasilar atelectasis versus scarring with pulmonary emphysema. 7 mm solid nodules in the left lung apex on image 46. 5 mm solid nodule left upper lobe on image 63. A few additional scattered solid pulmonary nodules measure up to 8 mm within the left lower lobe. Central airways are patent. Mild nonspecific mid to distal esophageal wall thickening. CT abdomen and pelvis dictated separately. Spleen is mildly enlarged. Unremarkable soft tissues. No acute fracture diffusely heterogeneous appearance of the bone marrow with ill- defined scattered sclerotic foci which have progressed from the prior study. CT ABDOMEN/PELVIS: No pneumatosis or pneumoperitoneum. Spleen measures 13 cm in length. Unremarkable pancreas and adrenal glands. Cholelithiasis with 1.7 cm calculus in the gallbladder neck. Gallbladder is again distended measuring up to 11 cm with equivocal gallbladder wall thickening. Findings are similar to prior. No biliary ductal dilation. Scattered calcified granulomata of the liver and spleen. Suggestion of mild hepatic steatosis. Unremarkable kidneys. No hydronephrosis. Decompressed urinary bladder with mild wall thickening. Mild prostatomegaly. Atherosclerosis of the aorta without aneurysm. Subcentimeter retroperitoneal lymph nodes including an 8 mm right- sided iliac chain lymph node on image 294. Periportal lymph nodes measure up to 1.7 cm are stable from prior. Nonspecific mild wall thickening of the distal esophagus and gastroesophageal junction. Scattered small large bowel air-fluid levels. No bowel obstruction or significant bowel wall thickening. Fluid-filled appendix is noninflamed. Dense material noted within the ascending colon. Diffusely sclerotic appearance of the bone marrow has progressed from the prior study. IMPRESSION: 1. Scattered small and large bowel air-fluid levels suggestive of enteritis with diarrheal illness. 2. Nonspecific single enlarged left axillary chain lymph node with subcentimeter epicardial and iliac chain lymph nodes which are nonspecific. The left axillary node would be amenable to tissue sampling. 3. No bowel obstruction or bowel wall thickening. 4. Scattered subcentimeter solid pulmonary nodules measure up to 8 mm. Follow-up guidelines below. 5. Heterogeneous appearance of the bone marrow with ill-defined scattered sclerotic foci which have progressed from the 202 exam. Findings are suspicious for metastatic disease. 6. Distended gallbladder with cholelithiasis, similar in appearance to the 08/27/2023 study. Correlative ultrasound may be considered. Please refer to below summary of Fleischner criteria recommendations for follow- up of incidental CT nodules (Demond Romo, Guidelines for management of small pulmonary nodules detected on CT scans: A statement from the Fleischner Society, Radiology 237: [id number].) SOLID NODULES Multiple nodules size: 6-8 mm * Low risk patients: follow-up at 3-6 months, then consider further follow-up at 18-24 months * high risk patients: follow-up at 3-6 months, then at 18-24 months if no change Multiple nodules size: >8 mm * Low risk patients: follow-up at 3-6 months, then consider further follow-up at 18-24 months * high risk patients: follow-up at 3-6 months, then at 18-24 months if no change Note: newly detected indeterminate nodule in persons 35 years of age or older. * Low risk patients: minimal or absent history of smoking and/or other known risk factors * high risk patients: history of smoking or of other known risk factors (e.g. first degree relative with lung cancer, or exposure to asbestos, radon, uranium) * if a nodule up to 8 mm is partly solid or is ground glass further follow-up is required after 24 months to exclude possible slow growing adenocarcinoma (BAKARI) ACT 112: Negative or not required by law. Electronically signed by: Milan Smith M.D. 12/26/2024 1:[address] 12/26/24 13:00 CT chest diagnostic wo con, CT abd pelvis wo con CT DOSE: 3051.47 mGy.cm CLINICAL HISTORY: 69 years-old Male with syncope. Acute syncope with diarrhea, chest and abdominal pain TECHNIQUE: Multiaxial CT images of the chest, abdomen and pelvis were performed without contrast. A dose lowering technique was utilized adhering to the principles of ALARA. COMPARISON: Chest radiograph 01/17/2023, CT abdomen and pelvis 08/27/2023 FINDINGS: CT CHEST: No thyroid nodule. Indeterminate 1.4 x 1.1 cm left axillary lymph node on image 62. Bilateral gynecomastia. No pathologically enlarged mediastinal or hilar lymph nodes. Epicardial lymph nodes measure up to 7 mm in short axis. Upper abdominal lymph nodes include periportal adenopathy measuring up to 1.5 cm. Heart is mildly enlarged. Extensive coronary artery calcifications. Atherosclerosis of aorta without aneurysm. Air within the right atrium and brachiocephalic veins, likely from IV catheter. Mild linear bibasilar atelectasis versus scarring with pulmonary emphysema. 7 mm solid nodules in the left lung apex on image 46. 5 mm solid nodule left upper lobe on image 63. A few additional scattered solid pulmonary nodules measure up to 8 mm within the left lower lobe. Central airways are patent. Mild nonspecific mid to distal esophageal wall thickening. CT abdomen and pelvis dictated separately. Spleen is mildly enlarged. Unremarkable soft tissues. No acute fracture diffusely heterogeneous appearance of the bone marrow with ill- defined scattered sclerotic foci which have progressed from the prior study. CT ABDOMEN/PELVIS: No pneumatosis or pneumoperitoneum. Spleen measures 13 cm in length. Unremarkable pancreas and adrenal glands. Cholelithiasis with 1.7 cm calculus in the gallbladder neck. Gallbladder is again distended measuring up to 11 cm with equivocal gallbladder wall thickening. Findings are similar to prior. No biliary ductal dilation. Scattered calcified granulomata of the liver and spleen. Suggestion of mild hepatic steatosis. Unremarkable kidneys. No hydronephrosis. Decompressed urinary bladder with mild wall thickening. Mild prostatomegaly. Atherosclerosis of the aorta without aneurysm. Subcentimeter retroperitoneal lymph nodes including an 8 mm right- sided iliac chain lymph node on image 294. Periportal lymph nodes measure up to 1.7 cm are stable from prior. Nonspecific mild wall thickening of the distal esophagus and gastroesophageal junction. Scattered small large bowel air-fluid levels. No bowel obstruction or significant bowel wall thickening. Fluid-filled appendix is noninflamed. Dense material noted within the ascending colon. Diffusely sclerotic appearance of the bone marrow has progressed from the prior study. IMPRESSION: 1. Scattered small and large bowel air-fluid levels suggestive of enteritis with diarrheal illness. 2. Nonspecific single enlarged left axillary chain lymph node with subcentimeter epicardial and iliac chain lymph nodes which are nonspecific. The left axillary node would be amenable to tissue sampling. 3. No bowel obstruction or bowel wall thickening. 4. Scattered subcentimeter solid pulmonary nodules measure up to 8 mm. Follow-up guidelines below. 5. Heterogeneous appearance of the bone marrow with ill-defined scattered sclerotic foci which have progressed from the 2022 exam. Findings are suspicious for metastatic disease. 6. Distended gallbladder with cholelithiasis, similar in appearance to the 08/27/2023 study. Correlative ultrasound may be considered. Please refer to below summary of Fleischner criteria recommendations for follow- up of incidental CT nodules (Demond Romo, Guidelines for management of small pulmonary nodules detected on CT scans: A statement from the Fleischner Society, Radiology 237: [phone].) SOLID NODULES Multiple nodules size: 6-8 mm * Low risk patients: follow-up at 3-6 months, then consider further follow-up at 18-24 months * high risk patients: follow-up at 3-6 months, then at 18-24 months if no change Multiple nodules size: >8 mm * Low risk patients: follow-up at 3-6 months, then consider further follow-up at 18-24 months * high risk patients: follow-up at 3-6 months, then at 18-24 months if no change Note: newly detected indeterminate nodule in persons 35 years of age or older. * Low risk patients: minimal or absent history of smoking and/or other known risk factors * high risk patients: history of smoking or of other known risk factors (e.g. first degree relative with lung cancer, or exposure to asbestos, radon, uranium) * if a nodule up to 8 mm is partly solid or is ground glass further follow-up is required after 24 months to exclude possible slow growing adenocarcinoma (BAKARI) ACT 112: Negative or not required by law. Electronically signed by: Milan Smith M.D. 12/26/2024 1:54 PM Discharge Plan Visit Data Chief Complaint: Syncope Stated Complaint: DIARRHEA ED Provider: Remy Landeros Discharge Problem: Diarrhea, Acute hyperkalemia, Acute hypotension, Acute dehydration, HOMERO (acute kidney injury), Syncope Patient Disposition: Being Evaluated by Hospitalist Forms Stand Alone Forms: My [facility] Prescriptions Prescriptions: No Action Eliquis 5 mg tablet 5 mg PO BID Hold Instructions: May resume the EVENING of 09/15/23. Hold until that time. metoprolol succinate 100 mg tablet extended release 24 hr 100 mg PO BID amlodipine 10 mg tablet 10 mg PO DAILY pantoprazole 40 mg Tablet,Delayed Release (Dr/Ec) 40 mg PO BID Qty: 60 2RF loperamide 2 mg capsule 2 mg PO Q6H PRN (Reason: loose stool) Qty: 20 0RF Rx Instructions: purchase [id number]-rsp-[id number] prednisone 5 mg tablet 5 mg PO DAILY sertraline 50 mg tablet 50 mg PO DAILY Humira Pen 40 mg/0.8 mL pen injector kit 40 mg SUBCUT .[id number] Referrals Referrals: Tali Doe PA-C [Primary Care Provider] - Discharge Problem: Diarrhea Qualifiers: Diarrhea type: unspecified type Qualified Code(s): R19.7 - Diarrhea, unspecified Syncope Qualifiers: Syncope type: unspecified Qualified Code(s): R55 - Syncope and collapse
[2024-12-26] MEDS: SODIUM CHLORIDE 0.9% 1,000 ML IV ONE ×2 (13:01→13:30)
[2024-12-26 13:11] LABS: iSTAT Creatinine 4.8 mg/dl (0.6-1.3); iSTAT Hemoglobin 12.9 g/dl (14.0-18.0); iSTAT Ionized Calcium 1.07 mmol/l (1.12-1.32); iSTAT Potassium 5.2 mmol/L (3.3-5.0)
[2024-12-26 13:23] LABS: Base Excess VBG -5.5 mEq/L; HCO3 VBG 21 mmol/L; Oxygen Saturation VBG < 60.0 %; PCO2 VBG 42 mmHg (38-50); PO2 VBG 30 mmHg
[2024-12-26 13:32] LABS: Basophils # (auto) 0.04 K/uL (0.00-0.20); Basophils % (auto) 0.7 %; Eosinophils # (auto) 0.33 K/uL (0.00-0.50); Eosinophils % (auto) 6.2 %; Hematocrit (blood only) 35.5 % (42.0-52.0); Hemoglobin 11.6 g/dl (14.0-18.0); Immature Granulocytes # (auto) 0.03 K/uL (0.01-0.20); Immature Granulocytes % (auto) 0.6 %; Lymphocytes # (auto) 0.64 K/uL (1.20-3.40); Lymphocytes % (auto) 11.9 %; Mean Corpuscular Hemoglobin 26.1 pg (25.0-34.0); Mean Corpuscular Hgb Conc 32.7 g/dL (32.0-36.0); Mean Corpuscular Volume 79.8 fL (80.0-100.0); Mean Platelet Volume 9.7 fL (9.4-12.4); Monocytes # (auto) 0.38 K/uL (0.11-0.59); Monocytes % (auto) 7.1 %; Neutrophils # (auto) 3.94 K/uL (1.40-6.50); Neutrophils % (auto) 73.5 %; Platelet Count 697 K/uL (130-400); RDW Coefficient of Variation 16.3 % (11.5-14.5); RDW Standard Deviation 46.9 fL (36.4-46.3); Red Blood Count 4.45 M/uL (4.70-6.10); White Blood Count 5.36 K/ul (4.8-10.8)
--- NOTE | 2024-12-26 13:40 | XRay Report ---
XR chest 1V portable CLINICAL HISTORY: Sepsis COMPARISON STUDY: 09/11/2023 FINDINGS: Heart size and pulmonary vasculature are normal. No effusion, consolidation, or pneumothora x. IMPRESSION: No acute findings. ACT 112: Negative or not required by law. Electronically signed by: Edinson Camara M.D. 12/26/2024 1:39 PM
[2024-12-26 13:41] LABS: Albumin Level 4.5 gm/dl (3.4-5.0); Anion Gap 16 (3-11); Bilirubin Direct 0.1 mg/dl (0-0.2); Bilirubin,Total 0.6 mg/dl (0.2-1.0); Calcium 9.6 mg/dl (8.6-10.3); Carbon Dioxide 20 mmol/L (21-32); Chloride 94 mmol/L (98-107); Magnesium 2.4 mg/dl (1.7-2.4); Potassium 5.1 mmol/L (3.5-5.1); Sodium 130 mmol/L (136-145)
[2024-12-26] MEDS: LACTATED RINGER'S 1,000 ML IV ONE (13:41)
[2024-12-26 13:46] LABS: Alanine Aminotransferase 11 U/L (7-52); Alkaline Phosphatase 277 U/L (34-104); Aspartate Aminotransferase 10 U/L (13-39); BUN Creatinine Ratio 10.9 (10-20); Blood Urea Nitrogen 46 mg/dl (6-23); Glucose 124 mg/dl (70-99(Fasting)); Total Protein 10.6 gm/dl (6.0-8.3)
[2024-12-26 13:52] LABS: Troponin I High Sensitivity 7.2 pg/ml (0-20)
[2024-12-26 13:55] LABS: INR 1.2 (0.9-1.1); Partial Thromboplastin Ratio 1.3; Partial Thromboplastin Time 36 Seconds (21-31); Prothrombin Time 12.5 Seconds (9.0-12.0)
--- NOTE | 2024-12-26 13:57 | CT Scan Report ---
CT chest diagnostic wo con, CT abd pelvis wo con CT DOSE: 3051.47 mGy.cm CLINICAL HISTORY: 69 years-old Male with syncope. Acute syncope with diarrhea, chest and abdominal p ain TECHNIQUE: Multiaxial CT images of the chest, abdomen and pelvis were performed without contrast. A dose lowering technique was utilized adhering to the principles of ALARA. COMPARISON: Chest radiograph 01/17/2023, CT abdomen and pelvis 08/27/2023 FINDINGS: CT CHEST: No thyroid nodule. Indeterminate 1.4 x 1.1 cm left axillary lymph node on image 62. Bilater al gynecomastia. No pathologically enlarged mediastinal or hilar lymph nodes. Epicardial lymph nodes measure up to 7 mm in short axis. Upper abdominal lymph nodes include periportal adenopathy measuring up to 1.5 cm. Heart is mildly enlarged. Extensive coronary artery calcifications. Atherosclerosis of aorta without aneurysm. Air within the right atrium and brachiocephalic veins, likely from IV cathet er. Mild linear bibasilar atelectasis versus scarring with pulmonary emphysema. 7 mm solid nodules in the left lung apex on image 46. 5 mm solid nodule left upper lobe on image 63. A few additional scattere d solid pulmonary nodules measure up to 8 mm within the left lower lobe. Central airways are patent. Mild nonspecific mid to distal esophageal wall thickening. CT abdomen and pelvis dictated separately. Spleen is mildly enlarged. Unremarkable soft tissues. No acute fracture diffusely heterogeneous appe arance of the bone marrow with ill-defined scattered sclerotic foci which have progressed from the pr ior study. CT ABDOMEN/PELVIS: No pneumatosis or pneumoperitoneum. Spleen measures 13 cm in length. Unremarkable pancreas and adrenal glands. Cholelithiasis with 1.7 cm calculus in the gallbladder neck. Gallbladder is again distended measuring up to 11 cm with equivocal gallbladder wall thickening. Findings are si milar to prior. No biliary ductal dilation. Scattered calcified granulomata of the liver and spleen. Suggestion of mild hepatic steatosis. Unremarkable kidneys. No hydronephrosis. Decompressed urinary bladder with mild wall thickening. Mild prostatomegaly. Atherosclerosis of the aorta without aneurysm. Subcentimeter retroperitoneal lymph n odes including an 8 mm right-sided iliac chain lymph node on image 294. Periportal lymph nodes measur e up to 1.7 cm are stable from prior. Nonspecific mild wall thickening of the distal esophagus and gastroesophageal junction. Scattered sma ll large bowel air-fluid levels. No bowel obstruction or significant bowel wall thickening. Fluid-louise led appendix is noninflamed. Dense material noted within the ascending colon. Diffusely sclerotic ernard earance of the bone marrow has progressed from the prior study. IMPRESSION: 1. Scattered small and large bowel air-fluid levels suggestive of enteritis with diarrheal illness. 2. Nonspecific single enlarged left axillary chain lymph node with subcentimeter epicardial and iliac chain lymph nodes which are nonspecific. The left axillary node would be amenable to tissue sampling . 3. No bowel obstruction or bowel wall thickening. 4. Scattered subcentimeter solid pulmonary nodules measure up to 8 mm. Follow-up guidelines below. 5. Heterogeneous appearance of the bone marrow with ill-defined scattered sclerotic foci which have p rogressed from the 2022 exam. Findings are suspicious for metastatic disease. 6. Distended gallbladder with cholelithiasis, similar in appearance to the 08/27/2023 study. Correlati ve ultrasound may be considered. Please refer to below summary of Fleischner criteria recommendations for follow-up of incidental CT n odules (Demond Romo, Guidelines for management of small pulmonary nodules detected on CT scans: A sta tement from the Fleischner Society, Radiology 237: [phone].) SOLID NODULES Multiple nodules size: 6-8 mm * Low risk patients: follow-up at 3-6 months, then consider further follow-up at 18-24 months * high risk patients: follow-up at 3-6 months, then at 18-24 months if no change Multiple nodules size: >8 mm * Low risk patients: follow-up at 3-6 months, then consider further follow-up at 18-24 months * high risk patients: follow-up at 3-6 months, then at 18-24 months if no change Note: newly detected indeterminate nodule in persons 35 years of age or older. * Low risk patients: minimal or absent history of smoking and/or other known risk factors * high risk patients: history of smoking or of other known risk factors (e.g. first degree relative with lung cancer, or exposure to asbestos, radon, uranium) * if a nodule up to 8 mm is partly solid or is ground glass further follow-up is required after 24 m [facility] to exclude possible slow growing adenocarcinoma (BAKARI) ACT 112: Negative or not required by law. Electronically signed by: Milan Smith M.D. 12/26/2024 1:54 PM
--- NOTE | 2024-12-26 13:59 | CT Scan Report ---
CT head/brain wo con CLINICAL HISTORY: 69 years-old Male with trauma. Acute head trauma TECHNIQUE: Multiple axial CT images of the head were obtained without contrast. A dose lowering tech nique was utilized adhering to the principles of ALARA. COMPARISON: CT chest, abdomen and pelvis of same day FINDINGS: No acute intracranial hemorrhage, midline shift, intracranial mass, hydrocephalus, territorial ischem ia or acute extra-axial collection. Asymmetric atrophy of the extra-axial space adjacent to the right frontal lobe compared to the left measures 9 mm while the left measures 5 mm Involutional changes, n otably with bifrontal cerebral atrophy. White matter hypodensities suggestive of chronic microvascula r ischemic disease. The calvarium is intact. Tiny left maxillary air-fluid level. Mastoid air cells are clear. IMPRESSION: 1. No acute intracranial abnormality. 2. Involutional changes with chronic microvascular ischemic disease. 3. Asymmetric prominence of the extra-axial spaces adjacent to the frontal lobes which may be seconda ry to atrophy. Small chronic right-sided subdural hematoma versus hygroma are differential considerat ions. ACT 112: Negative or not required by law. The above report was generated using voice recognition software. It may contain grammatical, syntax o r spelling errors. Electronically signed by: Milan Smith M.D. 12/26/2024 1:58 PM
--- NOTE | 2024-12-26 13:59 | History & Physical Report ---
Date of Service December 26, 2024 Assessment & Plan (1) Diarrhea: Plan: Stool and c. diff PCR, if negative can start on loperamide Follow-up blood cultures No further antibiotics recommended unless patient deteriorating (2) Syncope: Plan: Secondary to intravascular depletion - reassess following rehydration (3) HOMERO (acute kidney injury): Plan: Pre-renal, suspect some degree of ATN from hypotension UA pending No obstructive cause on CT 3.5L bolus (2.5L NSS, 1L LR) total given in the ER Will start Sodium bicarb 150 meq @ 150ml /hr overnight (4) A-fib: Plan: Chronic Continue metoprolol succinate for rate control Continue Eliquis for anticoagualtion - reduced dose given very poor renal function (5) High anion gap metabolic acidosis: Plan: Lactate resolved following IV fluid bolus Sodium bicarb to reverse NSS given earlier, futher IV fluids pending repeat labs in AM (6) Acute hyperkalemia: Plan: Hold lisinopril, should resolve with IV fluids and alkalization of blood Repeat level at 10pm (7) Elevated total protein: Plan: Electrophoresis sent by ER provider. This will need following up as outpatient. (8) Rheumatoid arthritis: Plan: Continue prednisone 5mg PO daily With diarrhea and hypotension will start stress dose steroids with hydrocortisone 100mg IV then 50mg IV q6h Hold Rinvoq during active infection (9) HTN (hypertension): Plan: Hypotensive secondary to intravascular depletion and antihypertensive use Hold amlodipine, lisinopril Okay to continue metoprolol succinate with hold parameters for rate control of atrial fibrillation (10) GERD (gastroesophageal reflux disease): Plan: Previous ulcer on EGD in 2022 No current symptoms Continue pantoprazole 40mg PO BID Plan VTE Prophylaxis - Eliquis Diet - low fiber, lactose intolerance Disposition - admit to PCU Admission and Anticipated Discharge Date Admission Date: December 26, 2024 History of Present Illness Chief Complaint: Syncope Diarrhea Primary Care Provider: Tali Brook Grant Quinonez is a 69 year old male who presents to the ER with 3 days of diarrhea and decreased oral intake. He feels this is similar to his admission in August 2023 with subsequent stool PCR negative but diarrheal state on his CT scans. He reports this subsequently resolved fully after approximately a month. He underwent colonoscopy during this time with pathology revealing benign colon adenomas. He reports occasional intermittent lower abdominal pain associated with this however he is having none of this currently. No nausea or vomiting, melena or hematochezia. No fever or chills. Allergies Allergy/AdvReac Type Severity Reaction Status Date / Time No Known Allergies Allergy Unverified 12/26/24 14:51 Home Medications Medication Instructions Recorded Confirmed Type prednisone 5 mg tablet 5 mg PO DAILY 01/17/23 12/26/24 History sertraline 50 mg tablet 50 mg PO DAILY 01/17/23 12/26/24 History amlodipine 10 mg tablet 10 mg PO DAILY 08/27/23 12/26/24 History apixaban 5 mg tablet (Eliquis) 5 mg PO BID 08/27/23 12/26/24 History metoprolol succinate 100 mg 100 mg PO BID 08/27/23 12/26/24 History tablet,extended release 24 hr loperamide 2 mg capsule 2 mg PO Q6H PRN loose stool #20 09/14/23 12/26/24 Rx caps lisinopril 40 mg tablet 40 mg PO DAILY 12/26/24 12/26/24 History pantoprazole 40 mg tablet,delayed 0 mg PO BID 12/26/24 12/26/24 History release upadacitinib 15 mg tablet,extended 15 mg PO DAILY 12/26/24 12/26/24 History release 24 hr (Rinvoq) Past Med/Surg History Problem List (Updated 12/26/24 @ 21:49 by Radu Mathews MD) Elevated total protein High anion gap metabolic acidosis Syncope (Acute) HOMERO (acute kidney injury) (Acute) Diarrhea (Acute) GERD with esophagitis Colonic polyp Esophagitis Elevated sed rate Hyperchloremic metabolic acidosis GERD (gastroesophageal reflux disease) Diarrhea Acute hypotension (Acute) Acute dehydration (Acute) Hyponatremia (Acute) Acute hyperkalemia (Acute) Rheumatoid arthritis HTN (hypertension) (Chronic) A-fib (Acute) HOMERO (acute kidney injury) (Acute) Gastroenteritis (Acute) Elevated lactic acid level (Acute) Surgical History No significant past surgical history Family History Other No significant family history Social History Smoking Status: Former smoker Tobacco Type: Cigarettes Second Hand Exposure: No; Do You Dip or Chew Tobacco: No; Tobacco Cessation Education Requested by Patient: No Hx Alcohol Use: No Hx Substance Use: No Preferred Language: Urdu Communication Ability: Effective Rn Postpartum Required: No Beliefs That Will Affect Care: None Current Living Situation: Spouse Other Information That Helps Us Care for You: No Feels Safe at Home: Yes Safety Concerns: Feels Safe At This Time Assistive Devices: Glasses Review of Systems Review of Systems: All systems reviewed & are unremarkable except as noted in HPI & below Physical Exam Constitutional: well developed; + not well nourished and no acute distress Eyes: PERRL, conjunctivae normal, anicteric sclerae ENMT: Mouth: + dry oral mucous membranes Respiratory: normal respiratory effort, lungs clear to auscultation Cardiovascular: Rate/Rhythm: + tachycardic and + irregularly irregular Heart Sounds: no murmur Extremities: normal capillary refill; no calf tenderness and no pedal edema Gastrointestinal (Abdomen): normal bowel sounds, soft, nontender, no hepatosplenomegaly Musculoskeletal: no cyanosis or clubbing, extremities motor strength 5/5 Skin: no rashes, warm and dry Neurologic: moves all extremities and awake; no focal motor deficits and not confused Psychiatric: A+Ox3, euthymic affect Results & Data Results & Data Vital Signs (Past 12 Hours) Vital Signs Temp Pulse Resp BP Pulse Ox O2 Del Method O2 Flow Rate 12/26/24 13:32 93 H 12/26/24 13:24 116/63 12/26/24 13:05 96/48 L 12/26/24 13:05 88 L Room Air 12/26/24 13:05 88 L Room Air 12/26/24 13:03 98 H 16 12/26/24 12:51 107 H 16 12/26/24 12:49 103/69 12/26/24 12:23 36.6 C 115 H 18 70/46 L 96 Nasal Cannula 4 Laboratory Results Abnormal lab results 12/26/24 12/26/24 Range/Units 12:56 12:58 RBC 4.45 L (4.70-6.10) M/uL Hgb 11.6 L (14.0-18.0) g/dl POC Hgb 12.9 L (14.0-18.0) g/dl Hct 35.5 L (42.0-52.0) % POC Hct 38 L (42-52) % MCV 79.8 L (80.0-100.0) fL RDW Std Deviation 46.9 H (36.4-46.3) fL RDW Coeff of Alana 16.3 H (11.5-14.5) % Plt Count 697 H (130-400) K/uL Lymph # (Auto) 0.64 L (1.20-3.40) K/uL VBG pH 7.30 L (7.36-7.41) POC Sodium 132 L (135-144) mmol/L Sodium 130 L (136-145) mmol/L POC Potassium 5.2 H (3.3-5.0) mmol/L POC Chloride 100 L (101-112) mmol/L Chloride 94 L (98-107) mmol/L Carbon Dioxide 20 L (21-32) mmol/L POC Total CO2 21 L (24-31) mmol/L Anion Gap 16 H (3-11) POC BUN 44 H (7-18) mg/dl BUN 46 H (6-23) mg/dl Creatinine 4.21 H (0.6-1.4) mg/dl POC Creatinine 4.8 H* (0.6-1.3) mg/dl Glucose 124 H (70-99(Fasting)) mg/dl POC Glucose (other) 132 H (70-99) mg/dl POC Ioniz Calcium Hakan 1.07 L (1.12-1.32) mmol/l AST 10 L (13-39) U/L Alkaline Phosphatase 277 H (34-104) U/L Total Protein 10.6 H (6.0-8.3) gm/dl Diagnostic Findings XR chest 1V portable CLINICAL HISTORY: Sepsis COMPARISON STUDY: 09/11/2023 FINDINGS: Heart size and pulmonary vasculature are normal. No effusion, consolidation, or pneumothorax. IMPRESSION: No acute findings. CT chest diagnostic wo con, CT abd pelvis wo con CT DOSE: 3051.47 mGy.cm CLINICAL HISTORY: 69 years-old Male with syncope. Acute syncope with diarrhea, chest and abdominal pain TECHNIQUE: Multiaxial CT images of the chest, abdomen and pelvis were performed without contrast. A dose lowering technique was utilized adhering to the principles of ALARA. COMPARISON: Chest radiograph 01/17/2023, CT abdomen and pelvis 08/27/2023 FINDINGS: CT CHEST: No thyroid nodule. Indeterminate 1.4 x 1.1 cm left axillary lymph node on image 62. Bilateral gynecomastia. No pathologically enlarged mediastinal or hilar lymph nodes. Epicardial lymph nodes measure up to 7 mm in short axis. Upper abdominal lymph nodes include periportal adenopathy measuring up to 1.5 cm. Heart is mildly enlarged. Extensive coronary artery calcifications. Atherosclerosis of aorta without aneurysm. Air within the right atrium and brachiocephalic veins, likely from IV catheter. Mild linear bibasilar atelectasis versus scarring with pulmonary emphysema. 7 mm solid nodules in the left lung apex on image 46. 5 mm solid nodule left upper lobe on image 63. A few additional scattered solid pulmonary nodules measure up to 8 mm within the left lower lobe. Central airways are patent. Mild nonspecific mid to distal esophageal wall thickening. CT abdomen and pelvis dictated separately. Spleen is mildly enlarged. Unremarkable soft tissues. No acute fracture diffusely heterogeneous appearance of the bone marrow with ill- defined scattered sclerotic foci which have progressed from the prior study. CT ABDOMEN/PELVIS: No pneumatosis or pneumoperitoneum. Spleen measures 13 cm in length. Unremarkable pancreas and adrenal glands. Cholelithiasis with 1.7 cm calculus in the gallbladder neck. Gallbladder is again distended measuring up to 11 cm with equivocal gallbladder wall thickening. Findings are similar to prior. No biliary ductal dilation. Scattered calcified granulomata of the liver and spleen. Suggestion of mild hepatic steatosis. Unremarkable kidneys. No hydronephrosis. Decompressed urinary bladder with mild wall thickening. Mild prostatomegaly. Atherosclerosis of the aorta without aneurysm. Subcentimeter retroperitoneal lymph nodes including an 8 mm right-rodolfo ed iliac chain lymph node on image 294. Periportal lymph nodes measure up to 1.7 cm are stable from prior. Nonspecific mild wall thickening of the distal esophagus and gastroesophageal junction. Scattered small large bowel air-fluid levels. No bowel obstruction or significant bowel wall thickening. Fluid-filled appendix is noninflamed. Dense material noted within the ascending colon. Diffusely sclerotic appearance of the bone marrow has progressed from the prior study. IMPRESSION: 1. Scattered small and large bowel air-fluid levels suggestive of enteritis with diarrheal illness. 2. Nonspecific single enlarged left axillary chain lymph node with subcentimeter epicardial and iliac chain lymph nodes which are nonspecific. The left axillary node would be amenable to tissue sampling. 3. No bowel obstruction or bowel wall thickening. 4. Scattered subcentimeter solid pulmonary nodules measure up to 8 mm. Follow-up guidelines below. 5. Heterogeneous appearance of the bone marrow with ill-defined scattered sclerotic foci which have progressed from the 2022 exam. Findings are suspicious for metastatic disease. 6. Distended gallbladder with cholelithiasis, similar in appearance to the 2022 study. Correlative ultrasound may be considered. CT head/brain wo con CLINICAL HISTORY: 69 years-old Male with trauma. Acute head trauma TECHNIQUE: Multiple axial CT images of the head were obtained without contrast. A dose lowering technique was utilized adhering to the principles of ALARA. COMPARISON: CT chest, abdomen and pelvis of same day FINDINGS: No acute intracranial hemorrhage, midline shift, intracranial mass, hydrocephalus, territorial ischemia or acute extra-axial collection. Asymmetric atrophy of the extra-axial space adjacent to the right frontal lobe compared to the left measures 9 mm while the left measures 5 mm Involutional changes, notably with bifrontal cerebral atrophy. White matter hypodensities suggestive of chronic microvascular ischemic disease. The calvarium is intact. Tiny left maxillary air-fluid level. Mastoid air cells are clear. IMPRESSION: 1. No acute intracranial abnormality. 2. Involutional changes with chronic microvascular ischemic disease. 3. Asymmetric prominence of the extra-axial spaces adjacent to the frontal lobes which may be secondary to atrophy. Small chronic right-sided subdural hematoma versus hygroma are differential considerations. CT cervical spine wo con CLINICAL HISTORY: 69 years-old Male with trauma. Acute neck injury status post fall COMPARISON: Head CT of same day, CT chest, abdomen and pelvis Monday, CT abdomen and pelvis 08/27/2023. TECHNIQUE: Multiple axial CT images of the cervical spine were obtained without contrast. A dose lowering technique was utilized adhering to the principles of ALARA. FINDINGS: Demineralized appearance of the bones. Ill-defined sclerosis noted throughout the osseous structures. Moderate mid to lower cervical spine intervertebral disc space narrowing. Multilevel facet arthrosis, severe on the left at several levels. No acute fracture, subluxation or endplate erosion. Mild mid cervical dextroscoliosis. The cervical soft tissues appear unremarkable. Pulmonary emphysema with pulmonary nodules. Chest CT dictated separately. Severe calcified plaque within the bilateral carotid bulbs. IMPRESSION: 1. No acute cervical spine fracture or subluxation. 2. Ill-defined sclerotic foci throughout the skeletal structures are suspicious for metastasis. Metabolic etiologies or osseous lymphomatous involvement are additional differential considerations. Follow-up with hematology oncology recommended. Medications Administered ER Medications Given: Normal saline 1 L bolus Lactated Ringer's 1 L bolus Sodium bicarbonate 150 mEq in sterile water at 100 mL an hour ECG Rate (beats per minute): 100 Rhythm: atrial fibrillation Findings: + nonspecific-ST abn Comparison ECG Date: from (September 11, 2023) Change: the following changes noted (Criteria for inferior infarct no longer present) Code Status & VTE Plan Code Status Full PG Care Time/CCT Total # of Minutes Spent Total Time Spent with Patient: Total time spent is greater than 50% in coordination of care (as documented) at patient's floor/unit and/or counseling patient: Coding Level of Care Code 03743 INT INP/OBS CARE 3/75MIN Diagnoses Diarrhea, unspecified type R19.7 Diarrhea type: unspecified type Syncope R55 Syncope type: unspecified HOMERO (acute kidney injury) N17.9 A-fib I48.91 Atrial fibrillation type: unspecified High anion gap metabolic acidosis E87.29 Acute hyperkalemia E87.5 Elevated total protein R77.8 Rheumatoid arthritis M06.9 HTN (hypertension) I10 GERD (gastroesophageal reflux disease) K21.9 (1) Diarrhea Diarrhea type: unspecified type Qualified Code(s): R19.7 - Diarrhea, unspecified (2) Syncope Syncope type: unspecified Qualified Code(s): R55 - Syncope and collapse (4) A-fib Atrial fibrillation type: unspecified Qualified Code(s): I48.91 - Unspecified atrial fibrillation
--- NOTE | 2024-12-26 14:05 | CT Scan Report ---
CT cervical spine wo con CLINICAL HISTORY: 69 years-old Male with trauma. Acute neck injury status post fall COMPARISON: Head CT of same day, CT chest, abdomen and pelvis Monday, CT abdomen and pelvis 08/27/2023 . TECHNIQUE: Multiple axial CT images of the cervical spine were obtained without contrast. A dose low ering technique was utilized adhering to the principles of ALARA. FINDINGS: Demineralized appearance of the bones. Ill-defined sclerosis noted throughout the osseous s tructures. Moderate mid to lower cervical spine intervertebral disc space narrowing. Multilevel facet arthrosis, severe on the left at several levels. No acute fracture, subluxation or endplate erosion. Mild mid cervical dextroscoliosis. The cervical soft tissues appear unremarkable. Pulmonary emphysema with pulmonary nodules. Chest CT dictated separately. Severe calcified plaque within the bilateral carotid bulbs. IMPRESSION: 1. No acute cervical spine fracture or subluxation. 2. Ill-defined sclerotic foci throughout the skeletal structures are suspicious for metastasis. Metab olic etiologies or osseous lymphomatous involvement are additional differential considerations. Follo w-up with hematology oncology recommended. ACT 112: Negative or not required by law. The above report was generated using voice recognition software. It may contain grammatical, syntax o r spelling errors. Electronically signed by: Milan Smith M.D. 12/26/2024 2:03 PM
[2024-12-26] MEDS: CEFEPIME 2000MG 2,000 MG/20 ML SYR IV STA (14:20)
[2024-12-26] MEDS: SODIUM CHLORIDE 0.9% 500 ML IV ONE (14:21)
[2024-12-26] MEDS: NA BICARBONATE 8.4% 150 MEQ in SW 1,000 ML IV SCH (14:21)
[2024-12-26] MEDS: HYDROCORTISONE SOD SUCCINATE 100 MG/2 ML VIAL IV STA (15:34)
[2024-12-26 15:50] LABS: Adenovirus F 40/41 PCR Not Detected (NotDetected); Astrovirus PCR Not Detected (NotDetected); Campylobacter PCR Not Detected (NotDetected); Cryptosporidium PCR Not Detected (NotDetected); Cyclospora cayetanensis PCR Not Detected (NotDetected); Entamoeba histolytica PCR Not Detected (NotDetected); Enteroaggregative E.coli(EAEC) Not Detected (NotDetected); Enteropathogenic E.coli (EPEC) Not Detected (NotDetected); Enterotoxigenic E.coli (ETEC) Not Detected (NotDetected); Giardia lamblia PCR Not Detected (NotDetected); Norovirus GI/GII PCR Not Detected (NotDetected); Plesiomonas shigelloides PCR Not Detected (NotDetected); Rotavirus A PCR Not Detected (NotDetected); Salmonella PCR Not Detected (NotDetected); Sapovirus PCR Not Detected (NotDetected); Shiga-like Toxin E.coli (STEC) Not Detected (NotDetected); Shigella/Enteroinvasive E.coli Not Detected (NotDetected); Vibrio cholerae PCR Not Detected (NotDetected); Vibrio species PCR Not Detected (NotDetected); Yersinia enterocolitica PCR Not Detected (NotDetected)
--- NOTE | 2024-12-26 15:59 | Electrocardiogram Report ---
Test Reason : Blood Pressure : */* mmHG Vent. Rate : 100 BPM Atrial Rate : * BPM P-R Int : * ms QRS Dur : 78 ms QT Int : 344 ms P-R-T Axes : * 0 53 degrees QTcB Int : 443 ms Atrial fibrillation Minor Nonspecific ST abnormality Anterolateral leads Abnormal ECG When compared with ECG of 11-Sep-2023 06:07, Criteria for Inferior infarct are no longer Present Confirmed by Vini Blackman ([id number]) on 12/26/2024 3:58:46 PM Referred By: Confirmed By: Vini Blackman
[2024-12-26] MEDS ORDERED: ONDANSETRON INJ 2 MG/ML 2 ML VIAL IV PRN (16:58)
[2024-12-26 18:42] LABS: Appearance Urine Cloudy (Clear); Bilirubin Urine Negative (Negative); Blood Urine Trace (Negative); Color Urine Yellow; Glucose Urine UA 1+ (Negative); Ketones Urine Trace (Negative); Leukocyte Esterase Urine Negative (Negative); Nitrite Urine Negative (Negative); Protein Urine 2+ (Negative); RBC Urine Automated 0-2 /hpf (0-2); Specific Gravity Urine 1.013 (1.000-1.030); Urobilinogen Urine Negative (Negative)
[2024-12-26 18:52] LABS: Bacteria Urine Automated 3+ (None Seen)
[2024-12-26 18:53] LABS: Granular Casts Urine Present /lpf (None Prsent); Hyaline Casts Urine Present /lpf (None Presnt); Renal Epithelial Cells Urine Present /lpf (None Presnt)
[2024-12-26] MEDS: ACETAMINOPHEN 325 MG TAB PO PRN (19:22)
[2024-12-26] MEDS: LOPERAMIDE HCL 2 MG CAP PO PRN (19:22)
[2024-12-26] MEDS: HYDROCORTISONE SOD 50 MG in SYRINGE 0 ML IV SCH (20:17)
[2024-12-26] MEDS: PANTOprazole 40 MG TAB PO SCH (20:18)
[2024-12-26] MEDS: APIXABAN 2.5 MG TAB PO SCH (20:18)
[2024-12-26] MEDS: METOPROLOL SUCC 50MG EXT REL TAB PO SCH (20:18)
[2024-12-26 23:10] LABS: Calcium 8.7 mg/dl (8.6-10.3)
[2024-12-26] MEDS: MoRPHine SULFATE 2 MG/ML CARP IV STA (23:19)
[2024-12-27 05:12] LABS: Base Excess VBG 0.7 mEq/L; HCO3 VBG 24 mmol/L; Oxygen Saturation VBG 87.2 %; PCO2 VBG 35 mmHg (38-50); PO2 VBG 52 mmHg; pH VBG 7.45 (7.36-7.41)
[2024-12-27 05:27] LABS: Eosinophils # (auto) 0.01 K/uL (0.00-0.50); Eosinophils % (auto) 0.4 %; Hematocrit (blood only) 28.7 % (42.0-52.0); Hemoglobin 9.4 g/dl (14.0-18.0); Immature Granulocytes # (auto) 0.01 K/uL (0.01-0.20); Immature Granulocytes % (auto) 0.4 %; Lymphocytes # (auto) 0.22 K/uL (1.20-3.40); Lymphocytes % (auto) 9.4 %; Mean Corpuscular Hemoglobin 25.6 pg (25.0-34.0); Mean Corpuscular Hgb Conc 32.8 g/dL (32.0-36.0); Mean Corpuscular Volume 78.2 fL (80.0-100.0); Mean Platelet Volume 9.6 fL (9.4-12.4); Monocytes # (auto) 0.04 K/uL (0.11-0.59); Monocytes % (auto) 1.7 %; Neutrophils # (auto) 2.06 K/uL (1.40-6.50); Neutrophils % (auto) 88.1 %; Platelet Count 460 K/uL (130-400); RDW Coefficient of Variation 16.2 % (11.5-14.5); Red Blood Count 3.67 M/uL (4.70-6.10); White Blood Count 2.34 K/ul (4.8-10.8)
[2024-12-27 05:33] LABS: Albumin Globulin Ratio 0.8 (0.9-2); Albumin Level 3.6 gm/dl (3.4-5.0); BUN Creatinine Ratio 14.6 (10-20); Bilirubin,Total 0.5 mg/dl (0.2-1.0); Calcium 8.6 mg/dl (8.6-10.3); Creatinine Clr Calc Pharmacy 23.6 ml/min; Globulin 4.5 gm/dl (2.5-4.0); Potassium 4.8 mmol/L (3.5-5.1); Total Protein 8.1 gm/dl (6.0-8.3)
[2024-12-27] MEDS: predniSONE 5 MG TAB PO SCH (08:11)
[2024-12-27] MEDS: SERTRALINE HCL 50 MG TABLET PO SCH (08:11)
[2024-12-27 17:43] LABS: BUN Creatinine Ratio 16.7 (10-20); Calcium 8.7 mg/dl (8.6-10.3); Potassium 4.7 mmol/L (3.5-5.1)
[2024-12-27] MEDS: APIXABAN 2.5 MG TAB PO SCH (20:22)
--- NOTE | 2024-12-27 23:11 | Hospitalist Progress Note ---
Date of Service December 27, 2024 Assessment & Plan (1) Diarrhea: Plan: Stool and c. diff PCR, if negative can start on loperamide Follow-up blood cultures No further antibiotics recommended unless patient deteriorating. Appears to be improving. (2) Syncope: Plan: Secondary to intravascular depletion - reassess following rehydration (3) HOMERO (acute kidney injury): Plan: Pre-renal, suspect some degree of ATN from hypotension UA pending No obstructive cause on CT 3.5L bolus (2.5L NSS, 1L LR) total given in the ER resume IVF overnight. (4) A-fib: Plan: Chronic Continue metoprolol succinate for rate control Continue Eliquis for anticoagualtion - reduced dose given very poor renal function (5) High anion gap metabolic acidosis: Plan: Lactate resolved following IV fluid bolus Sodium bicarb to reverse NSS given earlier, resume IVF (6) Acute hyperkalemia: Plan: Hold lisinopril, should resolve with IV fluids and alkalization of blood potassium in normal range now. (7) Elevated total protein: Plan: Electrophoresis sent by ER provider. This will need following up as outpatient. (8) Rheumatoid arthritis: Plan: Continue prednisone 5mg PO daily With diarrhea and hypotension will start stress dose steroids with hydrocortisone 100mg IV then 50mg IV q6h Hold Rinvoq during active infection (9) HTN (hypertension): Plan: Hypotensive secondary to intravascular depletion and antihypertensive use Hold amlodipine, lisinopril Okay to continue metoprolol succinate with hold parameters for rate control of atrial fibrillation (10) GERD (gastroesophageal reflux disease): Plan: Previous ulcer on EGD in 2022 No current symptoms Continue pantoprazole 40mg PO BID possible malignancy Heterogeneous appearance of the bone marrow with ill-defined scattered sclerotic foci which have progressed from the 2022 exam. Findings are suspicious for metastatic disease. will need biopsy. will have patient followup with oncology as an outpatient. Plan VTE Prophylaxis - Eliquis Diet - low fiber, lactose intolerance Disposition - admit to PCU Admission and Anticipated Discharge Date Admission Date: December 26, 2024 Subjective Patient reports feeling better. Physical Exam Constitutional: well developed; + not well nourished and no acute distress Eyes: PERRL, conjunctivae normal, anicteric sclerae ENMT: external ear and nose normal, oropharynx normal Respiratory: normal respiratory effort, lungs clear to auscultation Cardiovascular: Rate/Rhythm: regular rate and + irregularly irregular Heart Sounds: no murmur Extremities: normal capillary refill; no calf tenderness and no pedal edema Musculoskeletal: no cyanosis or clubbing, extremities motor strength 5/5 Skin: no rashes, warm and dry Neurologic: moves all extremities and awake; no focal motor deficits and not confused Psychiatric: A+Ox3, euthymic affect Results & Data Results & Data Vital Signs (Past 12 Hours) Vital Signs Temp Pulse Resp BP Pulse Ox O2 Del Method 12/27/24 19:49 36.7 C 95 H 20 136/78 95 Room Air 12/27/24 15:28 36.3 C L 85 19 134/73 95 Room Air PG Care Time/CCT Total # of Minutes Spent Total Time Spent with Patient: Total time spent is greater than 50% in coordination of care (as documented) at patient's floor/unit and/or counseling patient: Coding Level of Care Code 47329 SUB INP/OBS CARE 3/50MIN Diagnoses Diarrhea, unspecified type R19.7 Diarrhea type: unspecified type Syncope R55 Syncope type: unspecified HOMERO (acute kidney injury) N17.9 A-fib I48.91 Atrial fibrillation type: unspecified High anion gap metabolic acidosis E87.29 Acute hyperkalemia E87.5 Elevated total protein R77.8 Rheumatoid arthritis M06.9 HTN (hypertension) I10 GERD (gastroesophageal reflux disease) K21.9 (1) Diarrhea Diarrhea type: unspecified type Qualified Code(s): R19.7 - Diarrhea, unspecified (2) Syncope Syncope type: unspecified Qualified Code(s): R55 - Syncope and collapse (4) A-fib Atrial fibrillation type: unspecified Qualified Code(s): I48.91 - Unspecified atrial fibrillation
[2024-12-28] MEDS: LACTATED RINGER'S 1,000 ML IV SCH (00:06)
[2024-12-28 08:10] LABS: BUN Creatinine Ratio 22.3 (10-20); Calcium 9.3 mg/dl (8.6-10.3); Creatinine Clr Calc Pharmacy 41.5 ml/min; Potassium 3.8 mmol/L (3.5-5.1)
[2024-12-28 08:22] VITALS: BP 147/74; RESP 14; TEMP 98.2; O2SAT 96
[2024-12-28 10:11] VITALS: PULSE 88
[2024-12-28] MEDS: POTASSIUM CHLORIDE CRTAB 20 MEQ TABCR PO STA (10:22)
--- NOTE | 2024-12-29 13:54 | Discharge Summary ---
Discharge Summary Date of Service December 29, 2024 Principal Dx & Hospital Course #1 = Principal Diagnosis (1) Diarrhea: Stool and c. diff PCR, if negative can start on loperamide Follow-up blood cultures No further antibiotics recommended unless patient deteriorating. Appears to be improving. (2) Syncope: Secondary to intravascular depletion - reassess following rehydration (3) HOMERO (acute kidney injury): Pre-renal, suspect some degree of ATN from hypotension UA pending No obstructive cause on CT 3.5L bolus (2.5L NSS, 1L LR) total given in the ER resume IVF overnight. (4) A-fib: Chronic Continue metoprolol succinate for rate control Continue Eliquis for anticoagualtion - reduced dose given very poor renal function (5) High anion gap metabolic acidosis: Lactate resolved following IV fluid bolus Sodium bicarb to reverse NSS given earlier, resume IVF (6) Acute hyperkalemia: Hold lisinopril, should resolve with IV fluids and alkalization of blood potassium in normal range now. (7) Elevated total protein: Electrophoresis sent by ER provider. This will need following up as outpatient. (8) Rheumatoid arthritis: Continue prednisone 5mg PO daily With diarrhea and hypotension will start stress dose steroids with hydrocortisone 100mg IV then 50mg IV q6h Hold Rinvoq during active infection (9) HTN (hypertension): Hypotensive secondary to intravascular depletion and antihypertensive use Hold amlodipine, lisinopril Okay to continue metoprolol succinate with hold parameters for rate control of atrial fibrillation (10) GERD (gastroesophageal reflux disease): Previous ulcer on EGD in 2022 No current symptoms Continue pantoprazole 40mg PO BID possible malignancy Heterogeneous appearance of the bone marrow with ill-defined scattered sclerotic foci which have progressed from the 2022 exam. Findings are suspicious for metastatic disease. will need biopsy. will have patient followup with oncology as an outpatient. Plan VTE Prophylaxis - Eliquis Diet - low fiber, lactose intolerance Disposition - admit to PCU Admission HPI Per Admitting Provider Grant Quinonez is a 69 year old male who presents to the ER with 3 days of diarrhea and decreased oral intake. He feels this is similar to his admission in August 2023 with subsequent stool PCR negative but diarrheal state on his CT scans. He reports this subsequently resolved fully after approximately a month. He underwent colonoscopy during this time with pathology revealing benign colon adenomas. He reports occasional intermittent lower abdominal pain associated with this however he is having none of this currently. No nausea or vomiting, melena or hematochezia. No fever or chills. Discharge Plan Discharge Items Patient Disposition: Home - Self-Care Reason For Visit: HOMERO, GASTROENTERITIS Discharge Diagnosis: HOMERO Activity: Resume your previous activity Non-emergency contact: Primary Care Provider Call non-emergency contact if: you have any medication questions Follow-up/Referrals: Tali Doe PA-C [Primary Care Provider] - Diet: Low Fiber and Lactose Intolerant Addtl Attending Provider Instructions: We alli recommend followup with your PCP next week. Will recommend your PCP check a BMP level. We willl need to set you up with Oncology or Interventional Radiology to further evaulate the finding in the ct scan Pending Studies at Discharge: No Stand-Alone Forms: My [facility] [employer], Smoking Cessation Medications and DC Order Prescriptions: Continued Eliquis 5 mg tablet 5 mg PO BID Hold Instructions: May resume the EVENING of 09/15/23. Hold until that time. metoprolol succinate 100 mg tablet extended release 24 hr 100 mg PO BID amlodipine 10 mg tablet 10 mg PO DAILY loperamide 2 mg capsule 2 mg PO Q6H PRN (Reason: loose stool) Qty: 20 0RF Rx Instructions: Unable to verify OTC meds at this date/time. prednisone 5 mg tablet 5 mg PO DAILY sertraline 50 mg tablet 50 mg PO DAILY Rinvoq 15 mg tablet extended release 24 hr 15 mg PO DAILY pantoprazole 40 mg tablet,delayed release (DR/EC) 0 mg PO BID Rx Instructions: Not on file w/ pharmacy, unable to verify w/ pt. Original Directions: 40mg by mouth twice daily Held lisinopril 40 mg tablet 40 mg PO DAILY Hold Instructions: Provider's Order until followed up with PCP. Discharge Orders: Discharge Order (Routine); Ordered 12/28/24 Ordered By: Zachary Clay Admission Data Admit Date/Time: 12/26/24 14:18 Attending Provider: Zachary Clay Admit Provider: Radu Mathews Primary Care Provider: Tali Doe Other Providers: Radu Mathews Other Interventions: Discharge Summary Assessment (RN) Last Done: 12/28/24 10:10 Hospital Stay Data Consultations 12/26/24 14:16 ED Decision to Admit Stat Diagnostic Imagining Performed 12/26/24 12:48 CT cervical spine wo con Stat CT head/brain wo con Stat 12/26/24 13:00 CT abd pelvis wo con Stat CT chest diagnostic wo con Stat Pending Results Patient Have Any Pending Studies at Discharge: No Discharge Instructions Given to Patient (Per Discharging Provider) We alli recommend followup with your PCP next week. Will recommend your PCP check a BMP level. We willl need to set you up with Oncology or Interventional Radiology to further evaulate the finding in the ct scan Coding Diagnoses Diarrhea, unspecified type R19.7 Diarrhea type: unspecified type Syncope R55 Syncope type: unspecified HOMERO (acute kidney injury) N17.9 A-fib I48.91 Atrial fibrillation type: unspecified High anion gap metabolic acidosis E87.29 Acute hyperkalemia E87.5 Elevated total protein R77.8 Rheumatoid arthritis M06.9 HTN (hypertension) I10 GERD (gastroesophageal reflux disease) K21.9
[2024-12-31 16:17] LABS: Albumin 3.5 g/dL (3.8-4.8); Alpha 1 Globulin 0.5 g/dL (0.2-0.3); Alpha 2 Globulin 0.8 g/dL (0.5-0.9); Beta-1-Globulin 0.4 g/dL (0.4-0.6); Beta-2-Globulin 0.6 g/dL (0.2-0.5); Gamma Globulin 2.2 g/dL (0.8-1.7); Monoclonal Protein Band 2 DNR g/dL (NONE DETECTED); Monoclonal Protein Band 3 DNR g/dL (NONE DETECTED)
== END 2024-12-28 10:38 | disposition home or self-care (01) | DRG 391 ==
LOC: ED 12:34 → 4W 14:18 → SUATTDRO 14:18 → 4W 16:42

== ENCOUNTER 2025-01-14 18:29 | Inpatient (IN) ==
[2025-01-14] MEDS: SODIUM CHLORIDE 0.9% 1,000 ML IV SCH ×2 (19:27→23:03)
--- NOTE | 2025-01-14 19:29 | Emergency Department Note ---
Impression & Plan Acute hyponatremia Admit ED Provider Note HPI: History obtained from patient. The patient is a 70-year-old gentleman who presents the emergency department chief complaint of generalized weakness and fatigue. Patient states he is also had diarrhea. Patient states his diarrhea has been nonbloody. Patient states he has had some chills but denies any fevers. Patient denies any vomiting. On arrival here to the ED the patient is initially hypotensive, he is otherwise without tachycardia, he is saturating well on room air on arrival. ROS: - Per HPI Differential Diagnosis: Sepsis, viral gastroenteritis, critical electrolyte abnormalities, acute kidney injury, symptomatic anemia, GI bleed, small bowel obstruction, amongst other potential pathologies. *Outpatient medications and allergy history reviewed. 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 Lab work shows a mild leukopenia at 4.37, hemoglobin is stable at 11.6, platelet count is 536. CMP shows critical hyponatremia at 123, chloride is 91, creatinine is stable at 1.85, bilirubin is mildly elevated at 1.4 but there is no significant transaminitis. Troponin is negative x 1. Procalcitonin is 2.97, urinalysis shows trace ketones. Stool PCR testing was obtained that is negative, viral panel testing was obtained and is negative. CT imaging of the abdomen pelvis shows some liquid contents throughout the colon consistent with a diarrheal state. Gallbladder is noted to have a stone within it with some dilatation of the gallbladder without any surrounding inflammatory changes. Vásquez sign is negative, I have low suspicion for acute cholecystitis. I discussed all the above findings with the patient, his blood pressure is stable following IV fluid resuscitation, he will require admission for further care given his symptoms of diarrhea, generalized weakness, and hyponatremia. I discussed the patient's presentation with the on-call hospitalist, Dr. Bryant, he is in agreement to admit the patient. Patient was in agreement to this plan and he was placed for admission in stable condition. Consultants/Discussions held with other healthcare providers: -Hospitalist, Dr. Bryant Disposition discussion held by myself with: -Patient Diagnosis: 1. Hyponatremia, acute 2. Diarrhea, acute 3. Generalized weakness/fatigue, acute Disposition: Admission Al Haywood DO Emergency Medicine Past Med/Surg History Problem List (Updated 01/15/25 @ 00:58 by Al Haywood DO) Acute hyponatremia (Acute) Hypotension Weakness Thrombocytosis Anemia Elevated total protein High anion gap metabolic acidosis Syncope (Acute) HOMERO (acute kidney injury) (Acute) Diarrhea (Acute) GERD with esophagitis Colonic polyp Esophagitis Elevated sed rate Hyperchloremic metabolic acidosis GERD (gastroesophageal reflux disease) Diarrhea Acute hypotension (Acute) Acute dehydration (Acute) Hyponatremia (Acute) Acute hyperkalemia (Acute) Rheumatoid arthritis HTN (hypertension) (Chronic) A-fib (Acute) HOMERO (acute kidney injury) (Acute) Gastroenteritis (Acute) Elevated lactic acid level (Acute) Surgical History No significant past surgical history Family History Other No significant family history Social History Smoking Status: Former smoker Tobacco Type: Cigarettes Second Hand Exposure: No; Do You Dip or Chew Tobacco: No; Hx Alcohol Use: No Hx Substance Use: No Preferred Language: Turkmen Communication Ability: Effective [employer] 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 Beliefs That Will Affect Care: None Current Living Situation: Spouse Feels Safe at Home: Yes Assistive Devices: None Allergies Allergies Allergy/AdvReac Type Severity Reaction Status Date / Time No Known Allergies Allergy Unverified 01/14/25 21:32 Home Meds Home Medications Medication Instructions Recorded Confirmed prednisone 5 mg tablet 5 mg PO DAILY 01/17/23 01/14/25 sertraline 50 mg tablet 50 mg PO DAILY 01/17/23 01/14/25 amlodipine 10 mg tablet 10 mg PO DAILY 08/27/23 01/14/25 apixaban 5 mg tablet (Eliquis) 5 mg PO BID 08/27/23 01/14/25 metoprolol succinate 100 mg 100 mg PO BID 08/27/23 01/14/25 tablet,extended release 24 hr lisinopril 40 mg tablet 40 mg PO DAILY 12/26/24 01/14/25 upadacitinib 15 mg tablet,extended 15 mg PO DAILY 12/26/24 01/14/25 release 24 hr (Rinvoq) Previous Rx's Medication Instructions Recorded loperamide 2 mg capsule 2 mg PO Q6H PRN loose stool #20 09/14/23 caps Results & Data (ED) Vital Signs Vital Signs - 24 hr 01/14/25 18:52 01/14/25 19:01 01/14/25 19:01 Temperature 36.4 C L Temperature Source Temporal Artery Scan Pulse Rate 93 H 100 H 95 H Pulse Rate [Apical] Pulse Rate from SpO2 Sensor Pulse Rhythm Irregular Pulse Rhythm [Apical] Respiratory Rate 18 22 Respiratory Effort / Characteristics Non-Labored Spontaneous Respiratory Depth Normal Respiratory Pattern Regular Blood Pressure 77/50 L Blood Pressure [Right Arm] Blood Pressure Mean 59 Blood Pressure Mean [Right Arm] Pulse Oximetry 94 95 Oxygen Delivery Method Room Air Room Air Sepsis Recent Fever Within 48 Hours No Sepsis New/Unexplained Change in Mental Status N/A Sepsis Action Taken by Nursing No Action Required 01/14/25 19:01 01/14/25 19:01 01/14/25 19:15 Temperature Temperature Source Pulse Rate 99 H Pulse Rate [Apical] 95 H 92 H Pulse Rate from SpO2 Sensor Pulse Rhythm Pulse Rhythm [Apical] Irregular Respiratory Rate 22 22 23 Respiratory Effort / Characteristics Non-Labored Spontaneous Non-Labored Spontaneous Respiratory Depth Normal Normal Respiratory Pattern Regular Regular Blood Pressure 129/68 Blood Pressure [Right Arm] 129/68 110/57 L Blood Pressure Mean 114 Blood Pressure Mean [Right Arm] 88 74 Pulse Oximetry 95 100 95 Oxygen Delivery Method Room Air Room Air Room Air Sepsis Recent Fever Within 48 Hours Sepsis New/Unexplained Change in Mental Status Sepsis Action Taken by Nursing 01/14/25 19:15 01/14/25 19:30 01/14/25 19:30 Temperature Temperature Source Pulse Rate 97 H 88 Pulse Rate [Apical] 95 H Pulse Rate from SpO2 Sensor Pulse Rhythm Pulse Rhythm [Apical] Respiratory Rate 20 19 23 Respiratory Effort / Characteristics Non-Labored Spontaneous Respiratory Depth Normal Respiratory Pattern Regular Blood Pressure 110/57 L 93/51 L Blood Pressure [Right Arm] 93/51 L Blood Pressure Mean 79 73 Blood Pressure Mean [Right Arm] 65 Pulse Oximetry 96 100 96 Oxygen Delivery Method Room Air Room Air Room Air Sepsis Recent Fever Within 48 Hours Sepsis New/Unexplained Change in Mental Status Sepsis Action Taken by Nursing 01/14/25 19:45 01/14/25 20:00 01/14/25 20:00 Temperature Temperature Source Pulse Rate 92 H 88 Pulse Rate [Apical] 95 H Pulse Rate from SpO2 Sensor 89 Pulse Rhythm Pulse Rhythm [Apical] Respiratory Rate 20 19 20 Respiratory Effort / Characteristics Non-Labored Spontaneous Respiratory Depth Normal Respiratory Pattern Regular Blood Pressure 141/69 H 137/70 Blood Pressure [Right Arm] 137/70 Blood Pressure Mean 93 84 Blood Pressure Mean [Right Arm] 92 Pulse Oximetry 97 95 98 Oxygen Delivery Method Room Air Room Air Room Air Sepsis Recent Fever Within 48 Hours Sepsis New/Unexplained Change in Mental Status Sepsis Action Taken by Nursing 01/14/25 20:15 01/14/25 21:00 01/14/25 21:00 Temperature Temperature Source Pulse Rate 99 H 88 Pulse Rate [Apical] 83 Pulse Rate from SpO2 Sensor 95 H Pulse Rhythm Pulse Rhythm [Apical] Respiratory Rate 20 21 20 Respiratory Effort / Characteristics Non-Labored Spontaneous Respiratory Depth Normal Respiratory Pattern Regular Blood Pressure 102/68 Blood Pressure [Right Arm] 102/68 Blood Pressure Mean 88 Blood Pressure Mean [Right Arm] 79 Pulse Oximetry 98 96 97 Oxygen Delivery Method Room Air Room Air Room Air Sepsis Recent Fever Within 48 Hours Sepsis New/Unexplained Change in Mental Status Sepsis Action Taken by Nursing 01/14/25 21:15 01/14/25 21:30 01/14/25 21:45 Temperature Temperature Source Pulse Rate 94 H 96 H 93 H Pulse Rate [Apical] Pulse Rate from SpO2 Sensor 97 H 87 Pulse Rhythm Pulse Rhythm [Apical] Respiratory Rate 17 20 23 Respiratory Effort / Characteristics Respiratory Depth Respiratory Pattern Blood Pressure 144/79 H 163/87 H 128/67 Blood Pressure [Right Arm] Blood Pressure Mean 100 112 87 Blood Pressure Mean [Right Arm] Pulse Oximetry 99 99 97 Oxygen Delivery Method Room Air Room Air Room Air Sepsis Recent Fever Within 48 Hours Sepsis New/Unexplained Change in Mental Status Sepsis Action Taken by Nursing 01/14/25 22:00 01/14/25 22:15 01/14/25 22:30 Temperature Temperature Source Pulse Rate 90 97 H 90 Pulse Rate [Apical] Pulse Rate from SpO2 Sensor 91 H 96 H 86 Pulse Rhythm Pulse Rhythm [Apical] Respiratory Rate 18 19 22 Respiratory Effort / Characteristics Respiratory Depth Respiratory Pattern Blood Pressure 120/66 99/53 L Blood Pressure [Right Arm] Blood Pressure Mean 84 68 Blood Pressure Mean [Right Arm] Pulse Oximetry 96 95 95 Oxygen Delivery Method Room Air Room Air Room Air Sepsis Recent Fever Within 48 Hours Sepsis New/Unexplained Change in Mental Status Sepsis Action Taken by Nursing 01/14/25 22:36 01/14/25 23:00 01/14/25 23:00 Temperature Temperature Source Pulse Rate 96 H Pulse Rate [Apical] Pulse Rate from SpO2 Sensor 94 H Pulse Rhythm Pulse Rhythm [Apical] Respiratory Rate 19 Respiratory Effort / Characteristics Non-Labored Respiratory Depth Normal Respiratory Pattern Blood Pressure Blood Pressure [Right Arm] Blood Pressure Mean Blood Pressure Mean [Right Arm] Pulse Oximetry 97 Oxygen Delivery Method Room Air Sepsis Recent Fever Within 48 Hours Sepsis New/Unexplained Change in Mental Status Sepsis Action Taken by Nursing 01/14/25 23:06 01/14/25 23:06 01/14/25 23:06 Temperature Temperature Source Pulse Rate Pulse Rate [Apical] Pulse Rate from SpO2 Sensor Pulse Rhythm Pulse Rhythm [Apical] Respiratory Rate Respiratory Effort / Characteristics Respiratory Depth Respiratory Pattern Blood Pressure 126/64 126/64 126/64 Blood Pressure [Right Arm] Blood Pressure Mean 91 91 91 Blood Pressure Mean [Right Arm] Pulse Oximetry Oxygen Delivery Method Sepsis Recent Fever Within 48 Hours Sepsis New/Unexplained Change in Mental Status Sepsis Action Taken by Nursing 01/14/25 23:15 01/14/25 23:18 Temperature Temperature Source Pulse Rate 89 Pulse Rate [Apical] Pulse Rate from SpO2 Sensor Pulse Rhythm Pulse Rhythm [Apical] Respiratory Rate 19 Respiratory Effort / Characteristics Respiratory Depth Respiratory Pattern Blood Pressure 129/67 Blood Pressure [Right Arm] Blood Pressure Mean 96 Blood Pressure Mean [Right Arm] Pulse Oximetry Oxygen Delivery Method Sepsis Recent Fever Within 48 Hours Sepsis New/Unexplained Change in Mental Status Sepsis Action Taken by Nursing Laboratory Data 01/14/25 19:06 01/14/25 19:06 Lab Results 01/14/25 01/14/25 01/14/25 Range/Units 19:06 21:00 22:40 WBC 4.37 L (4.8-10.8) K/ul RBC 4.53 L (4.70-6.10) M/uL Hgb 11.6 L (14.0-18.0) g/dl Hct 36.4 L (42.0-52.0) % MCV 80.4 (80.0-100.0) fL MCH 25.6 (25.0-34.0) pg MCHC 31.9 L (32.0-36.0) g/dL RDW Std Deviation 50.6 H (36.4-46.3) fL RDW Coeff of Alana 17.2 H (11.5-14.5) % Plt Count 536 H (130-400) K/uL MPV 9.7 (9.4-12.4) fL Immature Gran % (Auto) 0.7 % Neut % (Auto) 66.2 % Lymph % (Auto) 14.6 % Harlan % (Auto) 9.8 % Eos % (Auto) 6.9 % Baso % (Auto) 1.8 % Neut # (Auto) 2.89 (1.40-6.50) K/uL Lymph # (Auto) 0.64 L (1.20-3.40) K/uL Harlan # (Auto) 0.43 (0.11-0.59) K/uL Eos # (Auto) 0.30 (0.00-0.50) K/uL Baso # (Auto) 0.08 (0.00-0.20) K/uL Immature Gran # (Auto) 0.03 (0.01-0.20) K/uL Sodium 123 L (136-145) mmol/L Potassium 4.7 (3.5-5.1) mmol/L Chloride 91 L (98-107) mmol/L Carbon Dioxide 18 L (21-32) mmol/L Anion Gap 14 H (3-11) BUN 36 H (6-23) mg/dl Creatinine 1.85 H (0.6-1.4) mg/dl Est Cr Clr Drug Dosing 39.6 ml/min eGFR 38.22 BUN/Creatinine Ratio 19.5 (10-20) Glucose 102 H (70-99(Fasting)) mg/dl Osmolality 283 (280-300) mOsm/kg Lactate 1.3 (0.4-2.0) mmol/L Calcium 10.3 (8.6-10.3) mg/dl Magnesium 2.2 (1.7-2.4) mg/dl Total Bilirubin 1.4 H (0.2-1.0) mg/dl Direct Bilirubin 0.3 H (0-0.2) mg/dl AST 13 (13-39) U/L ALT 10 (7-52) U/L Alkaline Phosphatase 230 H (34-104) U/L Troponin I High Sens 8.2 (0-20) pg/ml Total Protein 10.3 H (6.0-8.3) gm/dl Albumin 4.8 (3.4-5.0) gm/dl Lipase 25 (11-82) U/L Procalcitonin 2.97 H (0-0.5) ng/ml Urine Color Yellow Urine Appearance Clear (Clear) Urine pH 5.0 (4.5-7.5) Ur Specific [place] > 1.045 H (1.000-1.030) Urine Protein 1+ H (Negative) Urine Glucose (UA) Negative (Negative) Urine Ketones Trace H (Negative) Urine Blood Negative (Negative) Urine Nitrite Negative (Negative) Urine Bilirubin Negative (Negative) Urine Urobilinogen Negative (Negative) Ur Leukocyte Esterase Negative (Negative) Urine WBC (Auto) 0-5 (0-5) /hpf Urine RBC (Auto) 0-2 (0-2) /hpf U Hyaline Cast (Auto) >20 H (0-2) /lpf U Epithel Cells (Auto) 0-2 (0-2) /hpf Urine Bacteria (Auto) None Seen (None Seen) Urine Mucus Present A (None Prsent) Urine Osmolality 485 L (500-800) mOsm/kg Ur Random Sodium 52 mmol/L Stl C. cayetanensis PCR Not Detected (NotDetected) Stool Rotavirus A PCR Not Detected (NotDetected) Stl Adenov F 40/41 PCR Not Detected (NotDetected) Stool Astrovirus (PCR) Not Detected (NotDetected) Stool Campylobacter PCR Not Detected (NotDetected) Stl C. diff Tox B Gene Negative Cdiff Gene (Neg) Stool Cryptosporidium PCR Not Detected (NotDetected) Stl E.coli Shiga Tox PCR Not Detected (NotDetected) Stl Enterotoxigenic E PCR Not Detected (NotDetected) Stool EPEC (PCR) Not Detected (NotDetected) Stool EAEC (PCR) Not Detected (NotDetected) Stl E. histolytica PCR Not Detected (NotDetected) Stool Giardia Lamblia PCR Not Detected (NotDetected) Stool Salmonella PCR Not Detected (NotDetected) Stool Sapovirus (PCR) Not Detected (NotDetected) Stl P. shigelloides PCR Not Detected (NotDetected) Stl Shigella/EIEC PCR Not Detected (NotDetected) St Y.enterocolitica PCR Not Detected (NotDetected) Stool Vibrio (PCR) Not Detected (NotDetected) Stl Vibrio cholerae PCR Not Detected (NotDetected) Stl Norovirus GI/GII PCR Not Detected (NotDetected) Adenovirus (PCR) (NotDetected) B. pertussis DNA (PCR) (NotDetected) B.parapertussis DNA PCR (NotDetected) C. pneumoniae DNA (PCR) (NotDetected) Coronavirus OC43 (PCR) (NotDetected) Coronavirus HKU1 (PCR) (NotDetected) Coronavirus 229E (PCR) (NotDetected) SARS-CoV-2 (PCR) (NotDetected) Coronavirus NL63 (PCR) (NotDetected) Human Metapneumovir PCR (NotDetected) Influenza Type A (PCR) (NotDetected) Influenza Type B (PCR) (NotDetected) M. pneumoniae (PCR) (NotDetected) Parainfluenza 1 (PCR) (NotDetected) Parainfluenza 2 (PCR) (NotDetected) Parainfluenza 3 (PCR) (NotDetected) Parainfluenza 4 (PCR) (NotDetected) RSV (PCR) (NotDetected) Entero/Rhino (PCR) (NotDetected) 01/14/25 Range/Units Unknown WBC (4.8-10.8) K/ul RBC (4.70-6.10) M/uL Hgb (14.0-18.0) g/dl Hct (42.0-52.0) % MCV (80.0-100.0) fL MCH (25.0-34.0) pg MCHC (32.0-36.0) g/dL RDW Std Deviation (36.4-46.3) fL RDW Coeff of Alana (11.5-14.5) % Plt Count (130-400) K/uL MPV (9.4-12.4) fL Immature Gran % (Auto) % Neut % (Auto) % Lymph % (Auto) % Harlan % (Auto) % Eos % (Auto) % Baso % (Auto) % Neut # (Auto) (1.40-6.50) K/uL Lymph # (Auto) (1.20-3.40) K/uL Harlan # (Auto) (0.11-0.59) K/uL Eos # (Auto) (0.00-0.50) K/uL Baso # (Auto) (0.00-0.20) K/uL Immature Gran # (Auto) (0.01-0.20) K/uL Sodium (136-145) mmol/L Potassium (3.5-5.1) mmol/L Chloride (98-107) mmol/L Carbon Dioxide (21-32) mmol/L Anion Gap (3-11) BUN (6-23) mg/dl Creatinine (0.6-1.4) mg/dl Est Cr Clr Drug Dosing ml/min eGFR BUN/Creatinine Ratio (10-20) Glucose (70-99(Fasting)) mg/dl Osmolality (280-300) mOsm/kg Lactate (0.4-2.0) mmol/L Calcium (8.6-10.3) mg/dl Magnesium (1.7-2.4) mg/dl Total Bilirubin (0.2-1.0) mg/dl Direct Bilirubin (0-0.2) mg/dl AST (13-39) U/L ALT (7-52) U/L Alkaline Phosphatase (34-104) U/L Troponin I High Sens (0-20) pg/ml Total Protein (6.0-8.3) gm/dl Albumin (3.4-5.0) gm/dl Lipase (11-82) U/L Procalcitonin (0-0.5) ng/ml Urine Color Urine Appearance (Clear) Urine pH (4.5-7.5) Ur Specific [place] (1.000-1.030) Urine Protein (Negative) Urine Glucose (UA) (Negative) Urine Ketones (Negative) Urine Blood (Negative) Urine Nitrite (Negative) Urine Bilirubin (Negative) Urine Urobilinogen (Negative) Ur Leukocyte Esterase (Negative) Urine WBC (Auto) (0-5) /hpf Urine RBC (Auto) (0-2) /hpf U Hyaline Cast (Auto) (0-2) /lpf U Epithel Cells (Auto) (0-2) /hpf Urine Bacteria (Auto) (None Seen) Urine Mucus (None Prsent) Urine Osmolality (500-800) mOsm/kg Ur Random Sodium mmol/L Stl C. cayetanensis PCR (NotDetected) Stool Rotavirus A PCR (NotDetected) Stl Adenov F 40/41 PCR (NotDetected) Stool Astrovirus (PCR) (NotDetected) Stool Campylobacter PCR (NotDetected) Stl C. diff Tox B Gene (Neg) Stool Cryptosporidium PCR (NotDetected) Stl E.coli Shiga Tox PCR (NotDetected) Stl Enterotoxigenic E PCR (NotDetected) Stool EPEC (PCR) (NotDetected) Stool EAEC (PCR) (NotDetected) Stl E. histolytica PCR (NotDetected) Stool Giardia Lamblia PCR (NotDetected) Stool Salmonella PCR (NotDetected) Stool Sapovirus (PCR) (NotDetected) Stl P. shigelloides PCR (NotDetected) Stl Shigella/EIEC PCR (NotDetected) St Y.enterocolitica PCR (NotDetected) Stool Vibrio (PCR) (NotDetected) Stl Vibrio cholerae PCR (NotDetected) Stl Norovirus GI/GII PCR (NotDetected) Adenovirus (PCR) Not Detected (NotDetected) B. pertussis DNA (PCR) Not Detected (NotDetected) B.parapertussis DNA PCR Not Detected (NotDetected) C. pneumoniae DNA (PCR) Not Detected (NotDetected) Coronavirus OC43 (PCR) Not Detected (NotDetected) Coronavirus HKU1 (PCR) Not Detected (NotDetected) Coronavirus 229E (PCR) Not Detected (NotDetected) SARS-CoV-2 (PCR) Not Detected (NotDetected) Coronavirus NL63 (PCR) Not Detected (NotDetected) Human Metapneumovir PCR Not Detected (NotDetected) Influenza Type A (PCR) Not Detected (NotDetected) Influenza Type B (PCR) Not Detected (NotDetected) M. pneumoniae (PCR) Not Detected (NotDetected) Parainfluenza 1 (PCR) Not Detected (NotDetected) Parainfluenza 2 (PCR) Not Detected (NotDetected) Parainfluenza 3 (PCR) Not Detected (NotDetected) Parainfluenza 4 (PCR) Not Detected (NotDetected) RSV (PCR) Not Detected (NotDetected) Entero/Rhino (PCR) Not Detected (NotDetected) Administered Medications Sodium Chloride (Nss) 1,000 mls @ 80 mls/hr IV .[id number] CHEMO Stop: 01/15/25 11:14 Last Admin: 01/14/25 23:03 Dose: 80 mls/hr Documented By: TORRES Sodium Chloride (Sodium Chloride 1 Gm Tablet) 1 gm PO BID CHEMO Stop: 02/13/25 22:44 Last Admin: 01/14/25 23:08 Dose: 1 gm Documented By: TORRES Discontinued Medications Hydrocortisone Sodium Succinate (Hydrocortisone Sod Succinate 100 Mg/2 Ml Vial) 100 mg IV NOW STA Stop: 01/14/25 23:13 Last Admin: 01/14/25 23:47 Dose: 100 mg Documented By: TORRES Sodium Chloride (Nss) 1,000 mls @ 999 mls/hr IV .Q1H1M CHEMO Stop: 01/14/25 21:15 Last Infusion: 01/14/25 22:01 Dose: Infused Documented By: Admin: 01/14/25 21:03 Dose: 999 mls/hr Documented By: Infusion: 01/14/25 20:47 Dose: Infused Documented By: Admin: 01/14/25 19:27 Dose: 999 mls/hr Documented By: NAPOLEON Sodium Chloride (Nss) 1,000 mls @ 999 mls/hr IV .Q1H1M ONE Stop: 01/15/25 00:12 Last Admin: 01/14/25 23:48 Dose: 999 mls/hr Documented By: TORRES Ioversol (Optiray 320 100ml) 94 ml IV ONCE ONE Stop: 01/14/25 20:48 Last Admin: 01/14/25 20:47 Dose: 94 ml Documented By: ZONIA Imaging Data Radiologist's Impression: Chest X-Ray 01/14/25 19:10 Clinical History: Sepsis Technique: 2 frontal views of the chest were obtained Findings: There are no confluent pulmonary infiltrates. The heart size is within normal limits. No pleural effusion or pneumothorax is seen. There is no definite pulmonary nodule. No fracture is noted. No foreign body is seen Impression: No active disease Electronically signed by Armando Martini 01-14-2025 7:54 PM Abdomen/Pelvis CT 01/14/25 19:28 Exam(s): CT ABDOMEN + PELVIS With Contrast IV Amt: 94ml optiray 320 EXAM: CT Abdomen and Pelvis With Intravenous Contrast CLINICAL HISTORY: Reason for exam: lower abd cramping, diarrhea. TECHNIQUE: Axial computed tomography images of the abdomen and pelvis with intravenous contrast. CTDI is 25.98 mGy and DLP is 1241.66 mGy-cm. Automated exposure control was utilized for the study. A dose lowering technique was utilized adhering to the principles of ALARA. CONTRAST: Patient received 94ml optiray 320 of IV contrast COMPARISON: CT December 26, 2024 FINDINGS: ABDOMEN: Liver: Unremarkable. Gallbladder and bile ducts: Gallbladder is distended. Stone in the neck of the gallbladder measuring 1.6 cm. No inflammatory changes. Pancreas: Unremarkable. Spleen: Unremarkable. Adrenals: Unremarkable. Kidneys and ureters: Unremarkable. No obstructing stones. No hydronephrosis. Stomach and bowel: Liquid contents throughout the colon as can be seen in the setting of a nonspecific diarrheal illness. PELVIS: Appendix: No findings to suggest acute appendicitis. Bladder: Mucosal thickening in the bladder. Reproductive: Unremarkable as visualized. ABDOMEN and PELVIS: Intraperitoneal space: Unremarkable. No free air. No significant fluid collection. Bones/joints: No acute fracture. Soft tissues: Unremarkable. Vasculature: Aortobiiliac atherosclerotic calcifications. Lymph nodes: Unremarkable. IMPRESSION: 1. Liquid contents throughout the colon as can be seen in the setting of a nonspecific diarrheal illness. 2. Gallbladder is distended. Stone in the neck of the gallbladder measuring 1.6 cm. No inflammatory changes. 3. Mucosal thickening in the bladder. Electronically signed by: Bandar Beebe MD 01/14/25 21:57 PM Discharge Plan Visit Data Chief Complaint: Weakness Stated Complaint: VERY WEAK ED Provider: Al Haywood Discharge Problem: Acute hyponatremia Forms Stand Alone Forms: [facility] Prescriptions Prescriptions: No Action Eliquis 5 mg tablet 5 mg PO BID Hold Instructions: May resume the EVENING of 09/15/23. Hold until that time. metoprolol succinate 100 mg tablet extended release 24 hr 100 mg PO BID amlodipine 10 mg tablet 10 mg PO DAILY loperamide 2 mg capsule 2 mg PO Q6H PRN (Reason: loose stool) Qty: 20 0RF prednisone 5 mg tablet 5 mg PO DAILY sertraline 50 mg tablet 50 mg PO DAILY lisinopril 40 mg tablet 40 mg PO DAILY Hold Instructions: Provider's Order until followed up with PCP. Rinvoq 15 mg tablet extended release 24 hr 15 mg PO DAILY Referrals Referrals: Tali Doe PA-C [Primary Care Provider] -
[2025-01-14 19:32] LABS: Basophils # (auto) 0.08 K/uL (0.00-0.20); Basophils % (auto) 1.8 %; Eosinophils % (auto) 6.9 %; Hematocrit (blood only) 36.4 % (42.0-52.0); Hemoglobin 11.6 g/dl (14.0-18.0); Immature Granulocytes # (auto) 0.03 K/uL (0.01-0.20); Immature Granulocytes % (auto) 0.7 %; Lymphocytes # (auto) 0.64 K/uL (1.20-3.40); Lymphocytes % (auto) 14.6 %; Mean Corpuscular Hemoglobin 25.6 pg (25.0-34.0); Mean Corpuscular Hgb Conc 31.9 g/dL (32.0-36.0); Mean Corpuscular Volume 80.4 fL (80.0-100.0); Mean Platelet Volume 9.7 fL (9.4-12.4); Monocytes # (auto) 0.43 K/uL (0.11-0.59); Monocytes % (auto) 9.8 %; Neutrophils # (auto) 2.89 K/uL (1.40-6.50); Neutrophils % (auto) 66.2 %; Platelet Count 536 K/uL (130-400); RDW Coefficient of Variation 17.2 % (11.5-14.5); RDW Standard Deviation 50.6 fL (36.4-46.3); Red Blood Count 4.53 M/uL (4.70-6.10); White Blood Count 4.37 K/ul (4.8-10.8)
--- NOTE | 2025-01-14 19:55 | XRay Report ---
Clinical History: Sepsis Technique: 2 frontal views of the chest were obtained Findings: There are no confluent pulmonary infiltrates. The heart size is within normal limits. No pleural effusion or pneumothorax is seen. There is no definite pulmonary nodule. No fracture is noted. No foreign body is seen Impression: No active disease Electronically signed by Armando Martini 01-14-2025 7:54 PM
[2025-01-14 20:31] LABS: Albumin Level 4.8 gm/dl (3.4-5.0); BUN Creatinine Ratio 19.5 (10-20); Bilirubin Direct 0.3 mg/dl (0-0.2); Bilirubin,Total 1.4 mg/dl (0.2-1.0); Calcium 10.3 mg/dl (8.6-10.3); Creatinine Clr Calc Pharmacy 39.6 ml/min; Magnesium 2.2 mg/dl (1.7-2.4); Potassium 4.7 mmol/L (3.5-5.1); Total Protein 10.3 gm/dl (6.0-8.3)
[2025-01-14 20:36] LABS: Troponin I High Sensitivity 8.2 pg/ml (0-20)
[2025-01-14] MEDS: OPTIRAY 320 100ml IV ONE (20:47)
--- NOTE | 2025-01-14 21:58 | CT Scan Report ---
Exam(s): CT ABDOMEN + PELVIS With Contrast IV Amt: 94ml optiray 320 EXAM: CT Abdomen and Pelvis With Intravenous Contrast CLINICAL HISTORY: Reason for exam: lower abd cramping, diarrhea. TECHNIQUE: Axial computed tomography images of the abdomen and pelvis with intravenous contrast. CTDI is 25.98 mGy and DLP is 1241.66 mGy-cm. Automated exposure control was utilized for the study. A dose lowering technique was utilized adhering to the principles of ALARA. CONTRAST: Patient received 94ml optiray 320 of IV contrast COMPARISON: CT December 26, 2024 FINDINGS: ABDOMEN: Liver: Unremarkable. Gallbladder and bile ducts: Gallbladder is distended. Stone in the neck of the gallbladder measuring 1.6 cm. No inflammatory changes. Pancreas: Unremarkable. Spleen: Unremarkable. Adrenals: Unremarkable. Kidneys and ureters: Unremarkable. No obstructing stones. No hydronephrosis. Stomach and bowel: Liquid contents throughout the colon as can be seen in the setting of a nonspecific diarrheal illness. PELVIS: Appendix: No findings to suggest acute appendicitis. Bladder: Mucosal thickening in the bladder. Reproductive: Unremarkable as visualized. ABDOMEN and PELVIS: Intraperitoneal space: Unremarkable. No free air. No significant fluid collection. Bones/joints: No acute fracture. Soft tissues: Unremarkable. Vasculature: Aortobiiliac atherosclerotic calcifications. Lymph nodes: Unremarkable. IMPRESSION: 1. Liquid contents throughout the colon as can be seen in the setting of a nonspecific diarrheal illness. 2. Gallbladder is distended. Stone in the neck of the gallbladder measuring 1.6 cm. No inflammatory changes. 3. Mucosal thickening in the bladder. Electronically signed by: Bandar Beeeb MD 01/14/25 21:57 PM
--- NOTE | 2025-01-14 22:26 | History & Physical Report ---
Date of Service January 14, 2025 Assessment & Plan (1) Hyponatremia: (2) Diarrhea: (3) Hypotension: (4) Rheumatoid arthritis: (5) Weakness: (6) Anemia: (7) HOMERO (acute kidney injury): Plan Patient is a 70-year-old male with past medical history of rheumatoid arthritis on chronic prednisone, hypertension, GERD, A-fib on Eliquis. He was recently hospitalized from 12/26 to 12/28 for diarrhea, HOMERO, and syncope in which his stool PCR was negative and he was given stress dose steroids. Patient returned to ED due to ongoing diarrhea and weakness and was found to have a sodium of 123. AP CT showed gallbladder distention and stone in neck of gallbladder, however no inflammatory changes. He does have mild elevation of total and direct bilirubin. #Hyponatremia NA 123 Anion gap 14, chloride 91, carbon dioxide 18 - VBG with a.m. labs Suspect 2/2 volume depletion with diarrhea below Serum osmole, urine osmole, urine NA ordered Given 2L NSS bolus in ED + 1L NSS bolus on admission; continue gentle IVF with NSS at 80 mL/hour x 1 bag overnight Start sodium chloride 1G twice daily tablets Trend BMP #Diarrhea suspect viral gastritis Hx of similar episode in 2022 - had GI eval, colonoscopy showed numerous polyps associated hyponatremia above, other electrolytes stable Pro-Randall elevated to 2.97 (1.24 on recent admission) Lactate negative - low concern for sepsis, afebrile, VSS, no leukocytosis Previous AP CT's showed cholelithiasis without cystitis AP CT now shows liquid contents throughout colon (nonspecific diarrheal illness), gallbladder distention, stone in neck of gallbladder measuring 1.6cm Total bili elevated 1.4, direct bili 0.3 on admission, Alk Phos 230 (chronically elevated) lipase WNL, 25 Gallbladder US ordered Previous stool cultures negative; repeat stool cultures ordered in ED if stool cultures negative, can resume loperamide Follow blood cultures could consider GI consult if cause unrevealing IV hydration as above and promote oral hydration #hypotension volume depleted and competent of adrenal insufficiency 99/53 on admission total of 3L NSS bolus given, gentle hydration with NSS @80ml/hr overnight stress dose steroids NaCl tablets #RA/weakness hold Rinvoq in acute infection on 5mg Prednisone daily; hold with mild hypotension (99/53) and weakness and admission stress dose steroids during recent admission improved symptoms - stress dose steroids with hydrocortisone 100mg now and 50mg IV Q6H #anemia Hgb 11.6 on admission, microcytic hypochromic iron panel checked previous admission - confirms TONY - Iron 35, TIBC 195, transferrin 139, transferrin % 19 will start iron supplement QOD #recent HOMERO history of HOMERO with acute gastritis/diarrhea above Renal function greatly improved - Cr 1.85 on admission hyperkalemia improving Patient resumed lisinopril roughly 1 week ago, continue avoid NSAIDs Continue hydration and trend BMP #Possible malignancy CT during previous admission showed heterogeneous appearance of bone marrow with ill-defined scattered sclerotic foci which have progressed from 2022 exam Labs also showed increased total protein (10.3) and electrophoresis returned as IgG kappa monoclonal antibodies present with faint bands, clinical correlation advised To arrange follow-up with oncology as an outpatient Chronic stable diagnoses: Thrombocytosis -platelet count 536 on admission, could consider peripheral smear HTN - continue amlodipine, lisinopril, metoprolol - with holding precautions A fib - continue Eliquis and metoprolol depression - continue sertraline VTE ppx: SCDs Diet: low fiber Dispo: med surg Admission and Anticipated Discharge Date Admission Date: 01/14/25 History of Present Illness Chief Complaint: weakness Primary Care Provider: Tali Doe Patient is a 70-year-old male with past medical history of rheumatoid arthritis on chronic prednisone, hypertension, GERD, A-fib on Eliquis. He was recently hospitalized from 12/26 to 12/28 for diarrhea, HOMERO, and syncope in which his stool PCR was negative and he was given stress dose steroids. Patient returned to ED due to ongoing diarrhea and weakness and was found to have a sodium of 123. AP CT showed gallbladder distention and stone in neck of gallbladder, however no inflammatory changes. He does have mild elevation of total and direct bilirubin. Of note patient had a similar episode in 2022 where he was admitted for diarrhea, discharged home, and diarrhea returned requiring readmission. He was evaluated by [facility] at this time and a colonoscopy was performed which showed numerous polyps, no ulcerative disease. He was to follow-up with GI as an outpatient. Most recent appointment in 2022 noted symptoms resolved. Patient seen at bedside. He stated on Monday he developed watery diarrhea again with roughly 5-6 episodes a day. He denies any blood in stool. He also has lower abdominal pain. He stated his diarrhea was completely resolved on recent admission after IV steroids. He has not followed with GI since 2022. He denies any sick contacts. Patient denies fever, chills, rhinorrhea, sore throat, cough, sputum production, dyspnea, dyspnea on exertion, chest pain, nausea, vomiting, dysuria, hematuria. He does not use nicotine products or drink alcohol. He denies past history of CAD, DM, previous VTE. He did not take any of his home medications today; Eliquis ordered on admission. He wishes to be full code. Allergies Allergy/AdvReac Type Severity Reaction Status Date / Time No Known Allergies Allergy Unverified 01/14/25 21:32 Home Medications Medication Instructions Recorded Confirmed Type prednisone 5 mg tablet 5 mg PO DAILY 01/17/23 01/14/25 History sertraline 50 mg tablet 50 mg PO DAILY 01/17/23 01/14/25 History amlodipine 10 mg tablet 10 mg PO DAILY 08/27/23 01/14/25 History apixaban 5 mg tablet (Eliquis) 5 mg PO BID 08/27/23 01/14/25 History metoprolol succinate 100 mg 100 mg PO BID 08/27/23 01/14/25 History tablet,extended release 24 hr loperamide 2 mg capsule 2 mg PO Q6H PRN loose stool #20 09/14/23 01/14/25 Rx caps lisinopril 40 mg tablet 40 mg PO DAILY 12/26/24 01/14/25 History upadacitinib 15 mg tablet,extended 15 mg PO DAILY 12/26/24 01/14/25 History release 24 hr (Rinvoq) Past Med/Surg History Problem List (Updated 01/15/25 @ 00:58 by Al Haywood DO) Acute hyponatremia (Acute) Hypotension Weakness Thrombocytosis Anemia Elevated total protein High anion gap metabolic acidosis Syncope (Acute) HOMERO (acute kidney injury) (Acute) Diarrhea (Acute) GERD with esophagitis Colonic polyp Esophagitis Elevated sed rate Hyperchloremic metabolic acidosis GERD (gastroesophageal reflux disease) Diarrhea Acute hypotension (Acute) Acute dehydration (Acute) Hyponatremia (Acute) Acute hyperkalemia (Acute) Rheumatoid arthritis HTN (hypertension) (Chronic) A-fib (Acute) HOMERO (acute kidney injury) (Acute) Gastroenteritis (Acute) Elevated lactic acid level (Acute) Surgical History No significant past surgical history Family History Other No significant family history Social History Smoking Status: Never smoker Tobacco Type: Cigarettes Second Hand Exposure: No; Do You Dip or Chew Tobacco: No; Hx Alcohol Use: No Hx Substance Use: No Preferred Language: Martiniquais Communication Ability: Effective Roving Can Tender Required: No Beliefs That Will Affect Care: None Current Living Situation: Spouse Current Living Situation Comment: lives in 2 story home with Other Information That Helps Us Care for You: No Feels Safe at Home: Yes Safety Concerns: Feels Safe At This Time Assistive Devices: Glasses Review of Systems Review of Systems: See HPI Physical Exam Physical Exam: The patient is awake, alert and oriented 3, well developed and well nourished, normocephalic and atraumatic, in no acute distress. Non-toxic appearing. HEENT- EOMI, mucous membranes dry. Hearing grossly intact. Heart-normal S1 and S2. No murmurs, rubs or gallops. Lungs-clear bilaterally, no respiratory distress, no accessory muscle use. Abdomen-normal bowel sounds and soft. No ascites noted. Non-tender. Extremities- no clubbing, cyanosis, or edema. Rheumatologic-normal range of motion. Psychiatric-normal affect. Results & Data Results & Data Vital Signs (Past 12 Hours) Vital Signs Temp Pulse Pulse Resp BP BP Pulse Ox 01/14/25 21:00 83 21 102/68 96 01/14/25 20:15 99 H 20 98 01/14/25 20:00 88 20 137/70 98 01/14/25 20:00 95 H 19 137/70 95 01/14/25 19:45 92 H 20 141/69 H 97 01/14/25 19:30 88 23 93/51 L 96 01/14/25 19:30 95 H 19 93/51 L 100 01/14/25 19:15 97 H 20 110/57 L 96 01/14/25 19:15 92 H 23 110/57 L 95 01/14/25 19:01 99 H 22 129/68 100 01/14/25 19:01 95 H 22 129/68 95 01/14/25 19:01 95 H 22 95 01/14/25 19:01 100 H 01/14/25 18:52 36.4 C L 93 H 18 77/50 L 94 O2 Del Method 01/14/25 21:00 Room Air 01/14/25 20:15 Room Air 01/14/25 20:00 Room Air 01/14/25 20:00 Room Air 01/14/25 19:45 Room Air 01/14/25 19:30 Room Air 01/14/25 19:30 Room Air 01/14/25 19:15 Room Air 01/14/25 19:15 Room Air 01/14/25 19:01 Room Air 01/14/25 19:01 Room Air 01/14/25 19:01 Room Air 01/14/25 19:01 01/14/25 18:52 Room Air Laboratory Results Reviewed CBC, CMP, Pro-Randall, troponin, lactate, lipase, bio fire Diagnostic Findings reviewed CXR and AP CT Medications Administered ED2L NSS bolus ECG Additional Comments: Ordered Code Status & VTE Plan Code Status Full code VTE Prophylaxis Plan VTE Prophylaxis will be ordered: Yes Supervising Physician Co-Signing Physician Notes Attending addendum: I have physically seen this patient, have supervised the CHACORTA's activities, and agree with the H&P unless as otherwise noted. Assessment and Plan: The patient is a 70-year-old male with past medical history including rheumatoid arthritis on chronic prednisone, hypertension, GERD, atrial fibrillation on Eliquis. He was most recently admitted to [facility] from 12/26-12/29/2024 for diarrhea, HOMERO, and syncope with negative stool PCR and responded to stress dose steroids. He presents to the emergency department this evening due to ongoing diarrhea and weakness, and with laboratory admission showing a sodium of 123. CT scan abdomen pelvis shows gallbladder distention with a stone in the gallbladder neck. He is referred for evaluation for admission to the [facility] hospitalist service. #Hyponatremia- Sodium 123 on admission, with serum osmolality, urine osmolality and urine sodium pending Patient overall looks volume depleted Status post 2 0 normal saline bolus in ED, and given additional normal saline bolus now. Then continue NSS at 80 mL/h x 1 additional liter Give sodium chloride 1 g p.o. twice daily Follow serial BMP and magnesium levels #Diarrhea- Likely viral etiology Similar presentation to 2022, when he had a GI evaluation and colonoscopy at that time which showed numerous polyps. Lactate negative, Previous CT scan abdomen pelvis shows cholelithiasis without cholecystitis CT scan abdomen pelvis now shows liquid contents throughout the colon suggesting a nonspecific diarrheal illness, gallbladder distention, stone in the gallbladder neck measuring 1.6 cm. Total bilirubin 1.4 with direct bilirubin 0.3 Order gallbladder ultrasound for further assessment Follow stool cultures and blood cultures IV fluids as noted #Hypotension-secondary to volume depletion associated with diarrheal illness Lowest blood pressure 99/53 Blood pressure has improved with IV fluid bolus and maintenance as noted above #Rheumatoid arthritis/progressive generalized weakness Hold written Amy Hold prednisone 5 mg daily Stress dose hydrocortisone 100 mg IV now, then 50 mg IV every 6 hours #Chronic medical conditions: Atrial fibrillation/hypertension- Continue Eliquis, other medication such as metoprolol, amlodipine, lisinopril on hold due to borderline blood pressure Depression-continue sertraline PG Care Time/CCT Total # of Minutes Spent Total Time Spent with Patient: Total time spent is greater than 50% in coordination of care (as documented) at patient's floor/unit and/or counseling patient: Coding Level of Care Code 43915 INT INP/OBS CARE MIN Diagnoses Hyponatremia E87.1 Diarrhea, unspecified type R19.7 Diarrhea type: unspecified type Hypotension I95.9 Rheumatoid arthritis M06.9 Weakness R53.1 Anemia D64.9 HOMERO (acute kidney injury) N17.9 (2) Diarrhea Diarrhea type: unspecified type Qualified Code(s): R19.7 - Diarrhea, unspecified
[2025-01-14] MEDS: SODIUM CHLORIDE 1 GM TABLET PO SCH (23:08)
[2025-01-14 23:09] LABS: Adenovirus PCR Not Detected (NotDetected); Bordetella parapertussis PCR Not Detected (NotDetected); Bordetella pertussis PCR Not Detected (NotDetected); Chlamydia pneumoniae PCR Not Detected (NotDetected); Coronavirus 229E PCR Not Detected (NotDetected); Coronavirus CoV-2 (COVID19)PCR Not Detected (NotDetected); Coronavirus HKU1 PCR Not Detected (NotDetected); Coronavirus NL63 PCR Not Detected (NotDetected); Coronavirus OC43PCR Not Detected (NotDetected); Human Metapneumovirus PCR Not Detected (NotDetected); Influenza A PCR Not Detected (NotDetected); Influenza B PCR Not Detected (NotDetected); Mycoplasma pneumoniae PCR Not Detected (NotDetected); Parainfluenza Virus 1 PCR Not Detected (NotDetected); Parainfluenza Virus 2 PCR Not Detected (NotDetected); Parainfluenza Virus 3 PCR Not Detected (NotDetected); Parainfluenza Virus 4 PCR Not Detected (NotDetected); Respiratory Syncytial VirusPCR Not Detected (NotDetected); Rhinovirus/Enterovirus PCR Not Detected (NotDetected)
[2025-01-14 23:17] LABS: Appearance Urine Clear (Clear); Bacteria Urine Automated None Seen (None Seen); Bilirubin Urine Negative (Negative); Blood Urine Negative (Negative); Cast Urine Automated >20 /lpf (0-2); Color Urine Yellow; Epithelial Cell Urine Auto 0-2 /hpf (0-2); Glucose Urine UA Negative (Negative); Ketones Urine Trace (Negative); Leukocyte Esterase Urine Negative (Negative); Mucus Urine Present (None Prsent); Nitrite Urine Negative (Negative); Protein Urine 1+ (Negative); RBC Urine Automated 0-2 /hpf (0-2); Specific Gravity Urine > 1.045 (1.000-1.030); Urobilinogen Urine Negative (Negative); WBC Urine Automated 0-5 /hpf (0-5)
[2025-01-14] MEDS: HYDROCORTISONE SOD SUCCINATE 100 MG/2 ML VIAL IV STA (23:47)
[2025-01-14] MEDS: SODIUM CHLORIDE 0.9% 1,000 ML IV ONE (23:48)
[2025-01-15 00:24] LABS: Adenovirus F 40/41 PCR Not Detected (NotDetected); Astrovirus PCR Not Detected (NotDetected); Campylobacter PCR Not Detected (NotDetected); Cryptosporidium PCR Not Detected (NotDetected); Cyclospora cayetanensis PCR Not Detected (NotDetected); Entamoeba histolytica PCR Not Detected (NotDetected); Enteroaggregative E.coli(EAEC) Not Detected (NotDetected); Enteropathogenic E.coli (EPEC) Not Detected (NotDetected); Enterotoxigenic E.coli (ETEC) Not Detected (NotDetected); Giardia lamblia PCR Not Detected (NotDetected); Norovirus GI/GII PCR Not Detected (NotDetected); Plesiomonas shigelloides PCR Not Detected (NotDetected); Rotavirus A PCR Not Detected (NotDetected); Salmonella PCR Not Detected (NotDetected); Sapovirus PCR Not Detected (NotDetected); Shiga-like Toxin E.coli (STEC) Not Detected (NotDetected); Shigella/Enteroinvasive E.coli Not Detected (NotDetected); Vibrio cholerae PCR Not Detected (NotDetected); Vibrio species PCR Not Detected (NotDetected); Yersinia enterocolitica PCR Not Detected (NotDetected)
[2025-01-15] MEDS: ONDANSETRON INJ 2 MG/ML 2 ML VIAL IV PRN (02:01)
[2025-01-15] MEDS: APIXABAN 5 MG TABLET PO SCH (02:02)
[2025-01-15] MEDS: ACETAMINOPHEN 325 MG TAB PO PRN (03:55)
[2025-01-15] MEDS: HYDROmorphone INJ 0.5 MG/0.5 ML SYR IV STA (04:56)
[2025-01-15] MEDS: HYDROCORTISONE SOD 50 MG in SYRINGE 0 ML IV SCH (04:56)
[2025-01-15] MEDS ORDERED: HYDROCORTISONE SOD SUCCINATE 100 MG/2 ML VIAL IV SCH (05:15)
--- NOTE | 2025-01-15 05:25 | Ultrasound Report ---
EXAM: US gallbladder CLINICAL HISTORY: Distention of GB on CT TECHNIQUE: Limited ultrasound of the liver and gallbladder was performed in greyscale and Doppler. Multiple images were obtained in transverse and longitudinal planes. COMPARISON: CT dated 12/26/2024 FINDINGS: Liver: Liver size: The Liver appears enlarged, measuring 18 cm, with homogeneous echotexture. No evidence of focal lesions, cysts, or masses. Hepatic vasculature appears normal. Gallbladder: Gallbladder size: The gallbladder is visualized and appears distended measuring 10.4 cm, in the long axis. A large echogenic gallstone was noted measuring 1.8 cm, with preserved wall thickness measuring 1.7 mm, and an associated small fluid level of sludge noted. No pericholecystic fluid was noted. No evidence of gallbladder wall edema or signs of acute cholecystitis. Biliary Tree: Common bile duct diameter: [3.2 mm]. The common bile duct is within normal limits in caliber and not dilated. No evidence of choledocholithiasis or biliary obstruction. The right kidney appears within normal. IMPRESSION: - Distended gall bladder with a large 1.8 cm solitary calculus. No signs of acute cholecystitis - No biliary ductal dilatation. - Hepatomegaly. - No interval changes. Electronically signed by Chiara Vigil 01-15-2025 05:25 AM
[2025-01-15] MEDS: lisinopril 40 MG TAB PO SCH (07:33)
[2025-01-15] MEDS: FERROUS SULFATE 325 MG TAB PO SCH (07:33)
[2025-01-15] MEDS: amLODIPine BESYLATE 5 MG TAB PO SCH (07:33)
[2025-01-15] MEDS: SERTRALINE HCL 50 MG TABLET PO SCH (07:34)
[2025-01-15] MEDS: METOPROLOL SUCC 50MG EXT REL TAB PO SCH (07:34)
[2025-01-15] MEDS: HYDROmorphone INJ 0.5 MG/0.5 ML SYR IV PRN (08:02)
[2025-01-15 08:12] LABS: Hematocrit (blood only) 32.1 % (42.0-52.0); Hemoglobin 10.4 g/dl (14.0-18.0); Mean Corpuscular Hemoglobin 25.7 pg (25.0-34.0); Mean Corpuscular Hgb Conc 32.4 g/dL (32.0-36.0); Mean Corpuscular Volume 79.3 fL (80.0-100.0); Mean Platelet Volume 9.8 fL (9.4-12.4); Platelet Count 317 K/uL (130-400); RDW Coefficient of Variation 16.9 % (11.5-14.5); RDW Standard Deviation 48.6 fL (36.4-46.3); Red Blood Count 4.05 M/uL (4.70-6.10); White Blood Count 3.01 K/ul (4.8-10.8)
[2025-01-15 08:19] LABS: Albumin Globulin Ratio 0.8 (0.9-2); Albumin Level 3.8 gm/dl (3.4-5.0); BUN Creatinine Ratio 32.8 (10-20); Bilirubin,Total 0.8 mg/dl (0.2-1.0); Calcium 8.5 mg/dl (8.6-10.3); Creatinine Clr Calc Pharmacy 60.1 ml/min; Potassium 4.5 mmol/L (3.5-5.1); Total Protein 8.8 gm/dl (6.0-8.3)
[2025-01-15 09:05] LABS: Basophils # (auto) 0.01 K/uL (0.00-0.20); Basophils % (auto) 0.3 %; Immature Granulocytes # (auto) 0.02 K/uL (0.01-0.20); Immature Granulocytes % (auto) 0.7 %; Lymphocytes # (auto) 0.11 K/uL (1.20-3.40); Lymphocytes % (auto) 3.7 %; Monocytes # (auto) 0.05 K/uL (0.11-0.59); Monocytes % (auto) 1.7 %; Neutrophils # (auto) 2.82 K/uL (1.40-6.50); Neutrophils % (auto) 93.6 %; Polychromasia 1+
[2025-01-15] MEDS: SODIUM BICARBONATE 650 MG TAB PO SCH (10:52)
[2025-01-15 15:15] LABS: BUN Creatinine Ratio 44.8 (10-20); Calcium 8.9 mg/dl (8.6-10.3); Creatinine Clr Calc Pharmacy 76.3 ml/min; Potassium 4.3 mmol/L (3.5-5.1)
[2025-01-15] MEDS: FAMOTIDINE 20MG IV PUSH 20 MG/5 ML SYR IV STA (16:00)
--- NOTE | 2025-01-15 17:19 | Hospitalist Progress Note ---
Date of Service January 15, 2025 Assessment & Plan (1) Hyponatremia: (2) Diarrhea: (3) Hypotension: (4) Anemia: Plan Patient is a 70-year-old male with past medical history of RA on chronic prednisone and Rinvoq, HTN, GERD, A-fib on Eliquis. He was recently hospitalized from 12/26 to 12/28 for diarrhea, HOMERO, and syncope in which his stool PCR was negative and he was given stress dose steroids. Patient returned to ED due to ongoing severe diarrhea, lower abdominal pain, and weakness and was found to have a sodium of 123. AP CT showed gallbladder distention and stone in neck of gallbladder, however no inflammatory changes. He does have mild elevation of total and direct bilirubin. #Hyponatremia/Non AG metabolic acidosis-Suspect 2/2 volume depletion with diarrhea . Na+ only slightly improved with IVFs NS to 126 then back down to 125 Ur Osm greater than 100 and Ur Na in the 50s, but was clearly hypovolemic on admission. Also with some component of adrenal insufficiency contributing to hyponatremia. Interestingly his Serum OSM was normal. HCO3 even lower at 14, AG only 12, likely from GI losses of bicarb -continue IVFs with NS -start NaHCO3 tabs 650mg po bid -follow BMP q4h -give 3% saline bolus -continue IV hydrocortisone #Diarrhea/Heartburn/h/o esophagitis-With copious diarrhea > 10 x/day, hypotension, severe dehydration, hyponatremia, and lower crampy abdominal pain. Hx of similar episode in 2022 - had GI eval, colonoscopy showed numerous polyps and esophagitis on EGD. Pro-Randall elevated to 2.97 (1.24 on recent admission), Stool PCR and C. diff negative, Respiratory Biofire negative, Lactate negative - low concern for sepsis, afebrile, VSS, no leukocytosis . CT A/P shows liquid contents throughout colon (nonspecific diarrheal illness), gallbladder distention, stone in neck of gallbladder measuring 1.6cm . Total bili elevated 1.4, direct bili 0.3 on admission, Alk Phos 230 (chronically elevated), lipase WNL. RUQ US with distended GB and stones but no CBD dilation or acute cholecystitis. LFTs improved except alk phos remains elevated. He had a similar diarrheal illness 3 weeks ago requiring hospitalization for HOMERO/dehydration and this improved after receiving stress dosed steroids. Consider side effect of Rinvoq which is new for him vs microscopic colitis or UC, Crohn's? No BRBPR, hematochezia, melena, or hematemesis. With associated microcytic anemia. CT last admission with bone marrow heterogeneity and sclerotic bone lesions, axillary TANIYA--> concern for bone marrow infiltration with CA vs primary bone marrow issue given anemia and leukopenia. -consult GI to see about colonoscopy -start Pepcid 20mg IV bid for GERD -Imodium prn diarrhea -add IV dilaudid prn abd pain -workup for bone marrow issues/CA as below #hypotension -volume depleted and component of adrenal insufficiency -99/53 on admission , now improved -continue stress dose steroids and IVF resuscitation #anemia/leukopenia/thrombocytosis-Hgb 11.6 on admission, microcytic hypochromic; platelet count 536 CT during previous admission showed heterogeneous appearance of bone marrow with ill-defined scattered sclerotic foci which have progressed from 2022 exam Labs also showed increased total protein (10.3) and electrophoresis returned as IgG kappa monoclonal antibodies present with faint bands, clinical correlation advised Alk phos elevated, with anemia, thrombocytosis . PSA was 0.2 in 12/2024 -check peripheral smear, Fe studies, B12, folate, TSH, and repeat SPEP/SINGH, check free light chains -consult Heme to see about possible need for bone marrow biopsy -has appt for left axillary TANIYA bx but requesting to have it done while inpatient-will see if can arrange #RA-follows with Dr. Kidd for Rheum. Previously on Humira, just started Rinvoq abut 2 months ago -informed Dr. Kidd of the patient's current condition to see if had to do with side effect of Rinvoq -hold Rinvoq -on 5mg Prednisone daily; hold and giving IV HC for stress dose steroids with mild hypotension (99/53) and weakness and admission stress dose steroids during recent admission improved symptoms - stress dose steroids with hydrocortisone 100mg now and 50mg IV Q6H #recent HOMERO -history of HOMERO 3 weeks ago with admission for dehydration, severe diarrhea . Renal function greatly improved since then- Cr 1.85 on admission and now down to 1.22, hyperkalemia improving. Patient resumed lisinopril roughly 1 week ago after being held for HOMERO -discontinue lisinopril and hold amlodipine given soft BPs avoid NSAIDs Continue hydration and trend BMP #HTN - BPs low on admission, now improved with IVFs and IV hydrocortisone -HOLD amlodipine, lisinopril -continue metoprolol - with holding precautions #A fib - continue Eliquis and metoprolol #depression - continue sertraline VTE ppx: SCDs Dispo: continued stay med surg Admission and Anticipated Discharge Date Admission Date: January 14, 2025 Subjective Pt has ongoing lower abdominal cramping. No diarrhea thus far today. Having heartburn. Tolerating po and is trying to drink more fluids. Denies headache, and lightheadedness is resolved now. No CP, SOB. Denies any blood in stool, no black tarry stool, no blood in vomit. He reports prior to 3 weeks ago, he was doing well and not having any diarrhea since hospitalization in 08/2023 for the same thing. Physical Exam Constitutional: WD/WN, vitals as above Respiratory: normal respiratory effort, lungs clear to auscultation Cardiovascular: RRR, no murmur, no edema Gastrointestinal (Abdomen): normal bowel sounds, soft, nontender, no hepatosplenomegaly Psychiatric: A+Ox3, euthymic affect Results & Data Results & Data Vital Signs (Past 12 Hours) Vital Signs Temp Pulse Resp BP Pulse Ox O2 Del Method 01/15/25 15:03 36.6 C 105 H 18 145/78 H 99 Room Air 01/15/25 08:03 36.3 C L 92 H 18 152/69 H 98 Room Air Laboratory Results CBC, BMP x 3, Fe studies, B12, folate, TSH all reviewed PG Care Time/CCT Total # of Minutes Spent Total Time Spent with Patient: Total time spent is greater than 50% in coordination of care (as documented) at patient's floor/unit and/or counseling patient: Coding Level of Care Code 93940 SUB INP/OBS CARE 3/50MIN Diagnoses Hyponatremia E87.1 Diarrhea, unspecified type R19.7 Diarrhea type: unspecified type Hypotension I95.9 Anemia D64.9 (2) Diarrhea Diarrhea type: unspecified type Qualified Code(s): R19.7 - Diarrhea, unspecified
[2025-01-15 18:37] LABS: BUN Creatinine Ratio 49.4 (10-20); Calcium 8.5 mg/dl (8.6-10.3); Creatinine Clr Calc Pharmacy 88.3 ml/min; Potassium 4.4 mmol/L (3.5-5.1)
[2025-01-15 18:51] LABS: Thyroid Stimulating Hormone 1.13 uIu/ml (0.300-4.500)
[2025-01-15 18:57] LABS: Ferritin 266.4 ng/ml (8-388)
[2025-01-15 18:59] LABS: Folate (Folic Acid),Ser orPlas 16.23 ng/ml (>5.38)
[2025-01-15] MEDS ORDERED: STAT IV/IM STA (19:38)
[2025-01-15] MEDS: SODIUM CHLORIDE 3 % 50 ML IV ONE (20:22)
[2025-01-16 00:19] LABS: BUN Creatinine Ratio 48.8 (10-20); Calcium 8.9 mg/dl (8.6-10.3); Creatinine Clr Calc Pharmacy 87.2 ml/min; Potassium 4.8 mmol/L (3.5-5.1)
[2025-01-16] MEDS: SODIUM CHLORIDE 0.9% 1,000 ML IV SCH ×2 (01:17→12:24)
[2025-01-16 06:31] LABS: Eosinophils # (auto) 0.02 K/uL (0.00-0.50); Eosinophils % (auto) 0.6 %; Hematocrit (blood only) 29.2 % (42.0-52.0); Hemoglobin 9.6 g/dl (14.0-18.0); Immature Granulocytes # (auto) 0.02 K/uL (0.01-0.20); Immature Granulocytes % (auto) 0.6 %; Lymphocytes # (auto) 0.22 K/uL (1.20-3.40); Lymphocytes % (auto) 6.2 %; Mean Corpuscular Hemoglobin 25.9 pg (25.0-34.0); Mean Corpuscular Hgb Conc 32.9 g/dL (32.0-36.0); Mean Corpuscular Volume 78.9 fL (80.0-100.0); Mean Platelet Volume 9.7 fL (9.4-12.4); Monocytes # (auto) 0.15 K/uL (0.11-0.59); Monocytes % (auto) 4.2 %; Neutrophils # (auto) 3.13 K/uL (1.40-6.50); Neutrophils % (auto) 88.4 %; Platelet Count 388 K/uL (130-400); RDW Coefficient of Variation 16.8 % (11.5-14.5); RDW Standard Deviation 47.7 fL (36.4-46.3); White Blood Count 3.54 K/ul (4.8-10.8)
[2025-01-16 06:54] LABS: Albumin Globulin Ratio 0.8 (0.9-2); Albumin Level 3.6 gm/dl (3.4-5.0); BUN Creatinine Ratio 47.5 (10-20); Bilirubin,Total 0.5 mg/dl (0.2-1.0); Creatinine Clr Calc Pharmacy 91.6 ml/min; Globulin 4.5 gm/dl (2.5-4.0); Potassium 4.5 mmol/L (3.5-5.1); Total Protein 8.1 gm/dl (6.0-8.3)
--- NOTE | 2025-01-16 08:14 | Oncology Consultation ---
Date of Consultation January 16, 2025 Assessment & Plan (1) Anemia: (2) Leukopenia: Plan -Recommend bone marrow biopsy and left axillary LN biopsy. Will follow up thereafter to discuss results. History of Present Illness Reason for Consultation: leukopenia,anemia,bone marrow abnormality on CT Attending Physician: Saskia Mena MD History of Present Illness 70-year-old with medical history of rheumatoid arthritis , hypertension, GERD, A-fib on Eliquis who was admitted with diarrhea and abdominal pain. Labs revealed leukopenia and microcytic anemia for which hematology was consulted . Of note, he was admitted for similar GI symptoms in early Dec and CT CAP had revealed nonspecific single enlarged left axillary chain lymph node with subcentimeter epicardial and iliac chain lymph nodes, scattered subcentimeter pulmonary nodules and heterogeneous appearance of the bone marrow with ill-defined scattered sclerotic foci suspicious for metastatic disease. SPEP with SINGH obtained during that admission showed IgG kappa MGUS (faint M spike). Allergies Allergy/AdvReac Type Severity Reaction Status Date / Time No Known Allergies Allergy Unverified 01/14/25 21:32 Home Medications Medication Instructions Recorded Confirmed Type prednisone 5 mg tablet 5 mg PO DAILY 01/17/23 01/14/25 History sertraline 50 mg tablet 50 mg PO DAILY 01/17/23 01/14/25 History amlodipine 10 mg tablet 10 mg PO DAILY 08/27/23 01/14/25 History apixaban 5 mg tablet (Eliquis) 5 mg PO BID 08/27/23 01/14/25 History metoprolol succinate 100 mg 100 mg PO BID 08/27/23 01/14/25 History tablet,extended release 24 hr loperamide 2 mg capsule 2 mg PO Q6H PRN loose stool #20 09/14/23 01/14/25 Rx caps lisinopril 40 mg tablet 40 mg PO DAILY 12/26/24 01/14/25 History upadacitinib 15 mg tablet,extended 15 mg PO DAILY 12/26/24 01/14/25 History release 24 hr (Rinvoq) Patient History Surgical History No significant past surgical history Family History Other No significant family history Social History Smoking Status: Never smoker Tobacco Type: Cigarettes Second Hand Exposure: No; Do You Dip or Chew Tobacco: No; Hx Alcohol Use: No Hx Substance Use: No Preferred Language: Palauan Communication Ability: Effective Practice Assistant Required: No Beliefs That Will Affect Care: None Current Living Situation: Spouse Current Living Situation Comment: lives in 2 story home with Other Information That Helps Us Care for You: No Feels Safe at Home: Yes Safety Concerns: Feels Safe At This Time Assistive Devices: Glasses Results & Data Vital Signs (Past 12 Hours) Vital Signs Temp Pulse Resp BP Pulse Ox O2 Del Method 01/16/25 07:18 36.3 C L 102 H 18 157/96 H 98 Room Air 01/15/25 21:06 36.5 C 92 H 18 162/80 H 99 Room Air 01/15/25 20:32 88 142/81 H
[2025-01-16] MEDS: FAMOTIDINE 20MG IV PUSH 20 MG/5 ML SYR IV SCH (09:21)
--- NOTE | 2025-01-16 10:11 | Gastrointestinal Consultation ---
Date of Consultation January 16, 2025 Assessment & Plan (1) Diarrhea: (2) Anemia: Plan Patient is a 70 year old male admitted with diarrhea and hyponatremia. Also some microcytic anemia, but not noticing any GI blood loss. He does use eliquis for a fib with the last dose of this being this morning. Since admission, he feels diarrhea has improved. Hgb has fallen. Stool studies unremarkable. - eliquis now held. last dosage was AM 01/16. - continue to follow hgb/hct. transfuse as needed. - will discuss case further with Dr. Mejia, further recommendations to follow. Supervising Physician Co-Signing Physician Notes Patient comes in with diarrhea hyponatremia. Had a similar episode back in 2022. Workup at that time including colonoscopy and biopsies for colitis were negative. Duodenal biopsies were negative for celiac disease. States he is done reasonably well and since that time however on close questioning he does note that he has occasional bouts of diarrhea. These may correspond to days where he is not taking his prednisone. He was prescribed this prednisone 5 mg daily though he states he may skip 3 to 4 days without taking it and then take 3 tablets at once when his arthritis acts up. With long-term prednisone use he may be steroid dependent and these may represent relative adrenal insufficiency. He was stopped his lisinopril but not clear that he actually stopped taking it. Lisinopril can cause an angioedema picture of the intestines usually associate with abdominal pain distention and enteritis can get diarrhea as a part of that picture. I believe his lisinopril is to be discontinued. Stool studies are negative At this point I do not think repeating endoscopic studies will be of benefit. I would see that he gets at least his 5 mg of prednisone per day. Or a dose of prednisone daily. If symptoms recur despite this can reassess. Discussed with hospitalist Dr. Mena. History of Present Illness Reason for Consultation: recurrent diarrhea / microcytic anemia Requesting Physician: Saskia Mena MD Attending Physician: Saskia Mena MD History of Present Illness Patient is a 70 year old male with a past medical history of rheumatoid arthritis on chronic prednisone, hypertension, GERD, A-fib on Eliquis (last dose 01/16 AM) who presented to the ED on 01/14 with complaints of ongoing diarrhea. He was recently hospitalized from 2/6 to 12/28 for diarrhea, HOMERO, and syncope in which his stool PCR was negative and he was given stress dose steroids and his symptoms had improved. He had went home and had done well until about 3 days ago when he started again with diarrhea, weakness, and not feeling well. Patient was found to have a sodium of 123. 01/14 CT A/P shown gallbladder distention and stone in neck of gallbladder, however no inflammatory changes. 01/15 US shown dilated gallbladder with 1.8 cm calculi but no acute cholecystitis or biliary dilation. 01/14 stool studies unremarkable. He feels his symptoms have again resolved with steroids. He tells me that diarrhea has improved. no nausea, vomiting, abdominal pain, reflux, brbpr, or melena. 01/15 t bili 0.8, AST 10, ALT 9, Alk phos 183. 01/16/25 hgb 9.6, hct 29.2, wbc 3.54, platelets 388. 01/15/25 hgb 10.4 01/14/25 hgb 11.6. Colonoscopy 09/13/23 colon polyps and internal hemorrhoids. EGD 09/13/23 moderate severe reflux esophagitis, small hiatal hernia. pathology: Duodenum (biopsy): - Multiple benign strips of small bowel mucosa with no pathologic diagnoses are seen. - Villous architecture is maintained. - The clinical history of diarrhea is noted. Esophagus, distal (biopsy): - Moderate, diffuse chronic active esophagitis with benign glandular epithelium and evidence of an ulcer with fibrinopurulent exudate is seen. - Intestinal metaplasia, dysplasia, and carcinoma are all not seen. - The clinical history of Santillan's esophagus is noted. - In light of the presence of 2 fragments of inflamed granulation tissue and detached strips of fibrinopurulent exudate, please note that a PASF stain is negative for fungal hyphae and spores. Colon, "random colon biopsy" (biopsy): - Multiple benign strips of colonic mucosa with no pathologic diagnosis are se en. - See comment. Colon, ascending (polypectomy): - Tubular adenoma. Colon, transverse (polypectomy): - Fragmented tubular adenoma. Rectum (polypectomy): - Tubular adenoma Allergies Allergy/AdvReac Type Severity Reaction Status Date / Time No Known Allergies Allergy Unverified 01/14/25 21:32 Home Medications Medication Instructions Recorded Confirmed Type prednisone 5 mg tablet 5 mg PO DAILY 01/17/23 01/14/25 History sertraline 50 mg tablet 50 mg PO DAILY 01/17/23 01/14/25 History amlodipine 10 mg tablet 10 mg PO DAILY 08/27/23 01/14/25 History apixaban 5 mg tablet (Eliquis) 5 mg PO BID 08/27/23 01/14/25 History metoprolol succinate 100 mg 100 mg PO BID 08/27/23 01/14/25 History tablet,extended release 24 hr loperamide 2 mg capsule 2 mg PO Q6H PRN loose stool #20 09/14/23 01/14/25 Rx caps lisinopril 40 mg tablet 40 mg PO DAILY 12/26/24 01/14/25 History upadacitinib 15 mg tablet,extended 15 mg PO DAILY 12/26/24 01/14/25 History release 24 hr (Rinvoq) Patient History Surgical History No significant past surgical history Family History Other No significant family history Social History Smoking Status: Never smoker Tobacco Type: Cigarettes Second Hand Exposure: No; Do You Dip or Chew Tobacco: No; Hx Alcohol Use: No Hx Substance Use: No Preferred Language: Yakut Communication Ability: Effective Leather Splitter Required: No Beliefs That Will Affect Care: None Current Living Situation: Spouse Current Living Situation Comment: lives in 2 story home with Other Information That Helps Us Care for You: No Feels Safe at Home: Yes Safety Concerns: Feels Safe At This Time Assistive Devices: Glasses Review of Systems Review of Systems: All systems reviewed & are unremarkable except as noted in HPI & below Physical Exam Constitutional: WD/WN, vitals as above Respiratory: normal respiratory effort, lungs clear to auscultation Cardiovascular: Rate/Rhythm: regular rate and regular rhythm Gastrointestinal (Abdomen): normal bowel sounds, soft, nontender, no hepatosplenomegaly Psychiatric: Orientation: alert and oriented x 3 Affect: euthymic affect Results & Data Vital Signs (Past 12 Hours) Vital Signs Temp Pulse Resp BP Pulse Ox O2 Del Method 01/16/25 07:18 97.4 F L 102 H 18 157/96 H 98 Room Air Coding Level of Care Code 88415 INT INP/OBS CARE 2MIN Diagnoses Diarrhea R19.7 Diarrhea type: unspecified type Anemia D64.9 (1) Diarrhea Diarrhea type: unspecified type Qualified Code(s): R19.7 - Diarrhea, unspecified
--- NOTE | 2025-01-16 13:34 | Hospitalist Progress Note ---
Date of Service January 16, 2025 Assessment & Plan (1) Hyponatremia: (2) Diarrhea: (3) Hypotension: (4) Anemia: Plan Patient is a 70-year-old male with past medical history of RA on chronic prednisone and Rinvoq, HTN, GERD, A-fib on Eliquis. He was recently hospitalized from 12/26 to 12/28 for diarrhea, HOMERO, and syncope in which his stool PCR was negative and he was given stress dose steroids with improvement. Patient returned to ED due to ongoing severe diarrhea, lower abdominal pain, and weakness and was found to have a sodium of 123. AP CT showed gallbladder distention and stone in neck of gallbladder, however no inflammatory changes. He does have mild elevation of total and direct bilirubin which quickly resolved. He has a chronic elevation of alk phos related likely to ongoing bone marrow issue. #Hyponatremia/Non AG metabolic acidosis-Suspect 2/2 volume depletion with diarrhea from relative adrenal insufficiency. Na+ continues to improve with IV NS and gave one bolus of 3% saline -now up to 129 from 123 (over 48 hrs). Ur Osm greater than 100 and Ur Na in the 50s, but was clearly hypovolemic on admission. Also with some component of adrenal insufficiency contributing to hyponatremia. Interestingly his Serum OSM was normal. HCO3 low at 14 with AG only 12, and now improved to 15--> likely from GI losses of bicarb. Diarrhea now resolved and heartburn/nausea resolved -continue IVFs with NS through end of current bag and then stop as he is tolerating po and no further diarrhea -continue NaHCO3 tabs 650mg po bid -follow BMP daily -continue IV hydrocortisone stress dose steroids but reduce to q8h #Diarrhea/Heartburn/h/o esophagitis-With copious diarrhea > 10 x/day, hypotension, severe dehydration, hyponatremia, and lower crampy abdominal pain. With a hx of similar episode in 2022 at which time he had colonoscopy showing numerous polyps and esophagitis on EGD. He had another very similar episode earlier this month requiring hospitalization and caused HOMERO. Pro-Randall elevated to 2.97, Stool PCR and C. diff negative, Respiratory Biofire negative, Lactate negative - he remains afebrile, no leukocytosis . CT A/P shows liquid contents throughout colon (nonspecific diarrheal illness), gallbladder distention, stone in neck of gallbladder measuring 1.6cm . Total bili elevated 1.4, direct bili 0.3 on admission, Alk Phos 230 (chronically elevated), lipase WNL. RUQ US with distended GB and stones but no CBD dilation or acute cholecystitis. LFTs improved except alk phos remains elevated. TSH normal Pt admits to skipping several days of prednisone at times and then takes it as needed for arthritis flares. Appreciate GI eval--> does not think this is IBD or microscopic colitis. Improved with IV steroids-likely adrenal insufficiency, no need for repeat scopes especially as improved quickly and had scopes 17 months ago Rinvoq is actually used to treat IBD so it is not likely a cause of his diarrhea and abd pains, nausea, and hyponatremia---> likely cause is relative adrenal insufficiency especially as each time, he improves with taking IV hydrocortisone CT last admission with bone marrow heterogeneity and sclerotic bone lesions, axillary TANIYA--> concern for bone marrow infiltration with CA vs primary bone marrow issue given anemia and leukopenia. Also, lisinopril was recently resumed and this could cause gut angioedema and GI symptoms---> dcd lisinopril and would NOT restart -change IV pepcid to Protonix 40mg po bid -Imodium prn diarrhea -IV dilaudid prn abd pain -workup for bone marrow issues/CA as below -continue stress dose steroids and wean down to usual prednisone dose -permanently dc lisinopril #Hypotension -volume depleted and with relative adrenal insufficiency, now resolved -continue stress dose steroids but wean to HC 50mg IV q8h and can dc IVF resuscitation #Anemia/leukopenia/thrombocytosis-Hgb 11.6 on admission, microcytic hypochromic; platelet count 536 , now hgb 9.6 (hemodilutional) and platelets normal. Plts high due to iron deficiency and stress response. He denies any gross bleeding from anywhere at home and none seen here. CT during previous admission showed heterogeneous appearance of bone marrow with ill-defined scattered sclerotic foci which have progressed from 2022 exam Labs also showed increased total protein (10.3) and electrophoresis returned as IgG kappa monoclonal antibodies present with faint bands, clinical correlation advised Alk phos elevated, with anemia, thrombocytosis . PSA was 0.2 in 12/2024 Fe studies here with transferrin sat 14%, ferritin normal but with known inflammatory condition. B12 and folate, TSH all normal Appreciate Bruno/Onc consult -f/u peripheral smear, repeat SPEP/SINGH, free light chains, and immunoglobulins -plan for bone marrow biopsy Monday after off Eliquis x 3 days-hold ELiquis -order left axillary LN FNA #RA-follows with Dr. Kidd for Rheum. Previously on Humira, just started Rinvoq abut 2 months ago. Pt admits to skipping prednisone for several days in a row at times -informed Dr. Kidd of the patient's current condition -hold Rinvoq but can likely resume now -on 5mg Prednisone daily; hold and giving IV HC for stress dose steroids- weaning steroids to 50mg IV q8 #Recent HOMERO -history of HOMERO 3 weeks ago with admission for dehydration, severe diarrhea . Renal function greatly improved since then- Cr 1.85 on admission and now down to 0.8, hyperkalemia resolved. Patient resumed lisinopril roughly 1 week ago after being held for HOMERO -discontinue lisinopril and continue to hold amlodipine but could resume soon -avoid NSAIDs -trend BMP #HTN - BPs low on admission, now improved with IVFs and IV hydrocortisone -HOLD amlodipine, lisinopril -continue metoprolol - with holding precautions #A fib - continue metoprolol, HOLD ELiquis for axillary lymph node biopsy and bone marrow biopsy #depression - continue sertraline VTE ppx: SCDs Dispo: continued stay med surg Admission and Anticipated Discharge Date Admission Date: January 14, 2025 Subjective Pt feeling much better today. No diarrhea since admission, no further heartburn. No lightheadedness. Denies CP or SOB. I discussed his care with GI and with Hematology. Physical Exam Constitutional: WD/WN, vitals as above Respiratory: normal respiratory effort, lungs clear to auscultation Cardiovascular: RRR, no murmur, no edema Gastrointestinal (Abdomen): normal bowel sounds, soft, nontender, no hepatosplenomegaly Psychiatric: A+Ox3, euthymic affect Results & Data Results & Data Vital Signs (Past 12 Hours) Vital Signs Temp Pulse Resp BP Pulse Ox O2 Del Method 01/16/25 07:18 36.3 C L 102 H 18 157/96 H 98 Room Air Laboratory Results CBC, BMP, LFTs, Fe studies, B12, folate, blood cxs reviewed PG Care Time/CCT Total # of Minutes Spent Total Time Spent with Patient: Total time spent is greater than 50% in coordination of care (as documented) at patient's floor/unit and/or counseling patient: Coding Level of Care Code 32469 SUB INP/OBS CARE 350MIN Diagnoses Hyponatremia E87.1 Diarrhea, unspecified type R19.7 Diarrhea type: unspecified type Hypotension I95.9 Anemia D64.9 (2) Diarrhea Diarrhea type: unspecified type Qualified Code(s): R19.7 - Diarrhea, unspecified
[2025-01-16 13:47] LABS: Immunoglobulin A 477.3 mg/dl (70-400); Immunoglobulin G 1630.5 mg/dl (635-1741); Immunoglobulin M 303.4 mg/dl (45-281)
[2025-01-16] MEDS: PANTOprazole 40 MG TAB PO SCH (14:00)
[2025-01-16] MEDS: HYDROCORTISONE SOD 50 MG in SYRINGE 0 ML IV SCH (20:05)
[2025-01-17 07:54] LABS: Eosinophils # (auto) 0.06 K/uL (0.00-0.50); Eosinophils % (auto) 2.3 %; Hematocrit (blood only) 29.2 % (42.0-52.0); Hemoglobin 9.4 g/dl (14.0-18.0); Immature Granulocytes # (auto) 0.03 K/uL (0.01-0.20); Immature Granulocytes % (auto) 1.1 %; Lymphocytes % (auto) 11.4 %; Mean Corpuscular Hemoglobin 25.3 pg (25.0-34.0); Mean Corpuscular Hgb Conc 32.2 g/dL (32.0-36.0); Mean Corpuscular Volume 78.7 fL (80.0-100.0); Mean Platelet Volume 9.7 fL (9.4-12.4); Monocytes # (auto) 0.09 K/uL (0.11-0.59); Monocytes % (auto) 3.4 %; Neutrophils # (auto) 2.16 K/uL (1.40-6.50); Neutrophils % (auto) 81.8 %; Platelet Count 463 K/uL (130-400); RDW Standard Deviation 48.5 fL (36.4-46.3); Red Blood Count 3.71 M/uL (4.70-6.10); White Blood Count 2.64 K/ul (4.8-10.8)
[2025-01-17 08:20] LABS: Albumin Globulin Ratio 0.9 (0.9-2); Albumin Level 3.8 gm/dl (3.4-5.0); Bilirubin,Total 0.4 mg/dl (0.2-1.0); Calcium 9.2 mg/dl (8.6-10.3); Creatinine Clr Calc Pharmacy 97.7 ml/min; Globulin 4.1 gm/dl (2.5-4.0); Magnesium 1.9 mg/dl (1.7-2.4); Potassium 3.8 mmol/L (3.5-5.1); Total Protein 7.9 gm/dl (6.0-8.3)
[2025-01-17 09:36] LABS: INR 1.1 (0.9-1.1); Prothrombin Time 11.9 Seconds (9.0-12.0)
--- NOTE | 2025-01-17 10:35 | Gastroenterology Progress Note ---
Date of Service January 17, 2025 Assessment & Plan (1) Diarrhea: Plan No further issues with diarrhea or abdominal pain. Suspect that symptoms are related to an adrenal insufficiency. He currently feels well. - recommend that he gets a dose of prednisone daily at lowest dose to control symptoms. If symptoms recur despite this can reassess. Admission and Anticipated Discharge Date Admission Date: January 14, 2025 Supervising Physician Co-Signing Physician Notes No diarrhea since starting steroids. Reviewed hospitalist notes and agree. Potential adrenal insufficiency from irregular ingestion of long-term steroids. Stools negative previous endoscopy for similar things negative including biopsies for colitis and microscopic colitis. GI will sign off reconsult. As needed if redevelops diarrhea with steroid coverage. Subjective Diarrhea has resolved. no blood in the stools or melena. he denies any nausea, vomiting, abdominal pain, acid reflux. currently, he feels well from a GI standpoint. Review of Systems Review of Systems: All systems reviewed & are unremarkable except as noted in HPI & below Physical Exam Constitutional: WD/WN, vitals as above Respiratory: normal respiratory effort, lungs clear to auscultation Cardiovascular: Rate/Rhythm: regular rate and regular rhythm Gastrointestinal (Abdomen): normal bowel sounds, soft, nontender, no hepatosplenomegaly Psychiatric: Orientation: alert and oriented x 3 Affect: euthymic affect Results & Data Results & Data Vital Signs (Past 12 Hours) Vital Signs Temp Pulse Resp BP Pulse Ox O2 Del Method 01/17/25 07:08 97.5 F L 91 H 18 159/79 H 98 Room Air Coding Level of Care Code 35133 SUB INP/OBS CARE 12/14MIN Diagnoses Diarrhea R19.7 Diarrhea type: unspecified type (1) Diarrhea Diarrhea type: unspecified type Qualified Code(s): R19.7 - Diarrhea, unspecified
--- NOTE | 2025-01-17 13:39 | Hospitalist Progress Note ---
Date of Service January 17, 2025 Assessment & Plan (1) Hyponatremia: (2) Diarrhea: (3) Hypotension: (4) Anemia: Plan Patient is a 70-year-old male with past medical history of RA on chronic prednisone and Rinvoq, HTN, GERD, A-fib on Eliquis. He was recently hospitalized from 12/26 to 12/28 for diarrhea, HOMERO, and syncope in which his stool PCR was negative and he was given stress dose steroids with improvement. Patient returned to ED due to ongoing severe diarrhea, lower abdominal pain, and weakness and was found to have a sodium of 123. AP CT showed gallbladder distention and stone in neck of gallbladder, however no inflammatory changes. He does have mild elevation of total and direct bilirubin which quickly resolved. He has a chronic elevation of alk phos related likely to ongoing bone marrow issue. #Hyponatremia/Non AG metabolic acidosis-secondary to volume depletion with massive diarrhea from relative adrenal insufficiency-he has been skipping doses of prednisone. Na+ much improved to 134 after large volumes of IV NS and gave one bolus of 3% saline. Ur Osm greater than 100 and Ur Na in the 50s consistent with adrenal insufficiency, but was also clearly hypovolemic on admission.Interestingly his Serum OSM was normal but this may have been checked after administration of normal saline. HCO3 low at 14 with AG only 12 secondary to GI losses and now greatly improved to 20. Diarrhea now resolved and heartburn/nausea resolved with stress dose steroids -Encouraged him to not skip doses of prednisone in the future -continue NaHCO3 tabs 650mg po bid for now until serum bicarbonate back to normal -follow BMP daily -Convert IV hydrocortisone to p.o. prednisone and taper down to home dose #Diarrhea/heartburn-massive diarrhea as above along with lower abdominal pains and nausea/vomiting with hyponatremia. Pro-Randall elevated to 2.97, Stool PCR and C. diff negative, Respiratory Biofire negative, Lactate negative - afebrile, no leukocytosis . CT A/P shows liquid contents throughout colon (nonspecific diarr heal illness), gallbladder distention, stone in neck of gallbladder measuring 1.6cm . Total bili elevated 1.4, direct bili 0.3 on admission, Alk Phos 230 (chronically elevated), lipase WNL. RUQ US with distended GB and stones but no CBD dilation or acute cholecystitis. LFTs improved except alk phos remains elevated. TSH normal Pt admits to skipping several days of prednisone at times and then takes it as needed for arthritis flares. Appreciate GI eval--> does not think this is IBD or microscopic colitis. Improved with IV steroids-likely adrenal insufficiency, no need for repeat scopes especially as improved quickly and had scopes 17 months ago Rinvoq is actually used to treat IBD so it is not likely a cause of his diarrhea and abd pains, nausea, and hyponatremia---> likely cause is relative adrenal insufficiency CT last admission with bone marrow heterogeneity and sclerotic bone lesions, axillary TANIYA--> concern for bone marrow infiltration with CA vs primary bone marrow issue given anemia and leukopenia. Also, lisinopril was recently resumed and this could cause gut angioedema and GI symptoms---> dcd lisinopril and would NOT restart -Started Protonix 40mg po bid -Discontinue IV Dilaudid as no longer needed -workup for bone marrow issues/CA as below -continue stress dose steroids and wean down to usual prednisone dose -permanently dc lisinopril #Hypotension -volume depleted and with relative adrenal insufficiency, now resolved -continue stress dose steroids but discontinue IV hydrocortisone and start prednisone 20 mg p.o. 1 today then 10 mg daily x 2 days then back to 5 mg daily on 01/20-orders placed #Anemia/leukopenia/thrombocytosis-Hgb 11.6 on admission, microcytic hypochromic; platelet count 536 , now hgb 9.6 (hemodilutional) and platelets normal. Plts high due to iron deficiency and stress response. He denies any gross bleeding from anywhere at home and none seen here. CT during previous admission showed h eterogeneous appearance of bone marrow with ill-defined scattered sclerotic foci which have progressed from 2022 exam Labs also showed increased total protein (10.3) and electrophoresis returned as IgG kappa monoclonal antibodies present with faint bands, clinical correlation advised. Alk phos elevated, with anemia, thrombocytosis . PSA was 0.2 in 12/2024. Fe studies here with transferrin sat 14%, ferritin normal but with known inflammatory condition. B12 and folate, TSH all normal Immunoglobulins are actually high consistent with inflammation and not consistent with multiple myeloma. Peripheral smear with no significant abnormalities except leukopenia/lymphopenia Appreciate Bruno/Onc consult -f/u repeat SPEP/SINGH, free light chains when available -plan for bone marrow biopsy Monday after off Eliquis x 3 days-hold ELiquis -order left axillary LN FNA-to be performed on 01/17 #RA-follows with Dr. Kidd for Rheum. Previously on Humira, just started Rinvoq abut 2 months ago. Pt admits to skipping prednisone for several days in a row at times -informed Dr. Kidd of the patient's current condition -Okay to resume Rinvoq-must be brought in from home -on 5mg Prednisone daily-weaning steroids #Recent HOMERO -history of HOMERO 3 weeks ago with admission for dehydration, severe diarrhea . Renal function greatly improved since then- Cr 1.85 on admission and now down to normal. Hyperkalemia resolved. Patient resumed lisinopril roughly 1 week ago after being held for HOMERO. -discontinue lisinopril permanently -avoid NSAIDs -trend BMP #HTN - BPs low on admission, now improved with IVFs and IV hydrocortisone. Blood pressures are now rising -Resume amlodipine at 5 mg daily -Permanently discontinue lisinopril in case of gut angioedema -continue metoprolol - with holding precautions #A fib - continue metoprolol, and continue to HOLD ELiquis for axillary lymph node biopsy and bone marrow biopsy #depression - continue sertraline VTE ppx: SCDs Dispo: continued stay med surg, improving. Can likely discharge to home after bone marrow biopsy on Monday Admission and Anticipated Discharge Date Admission Date: January 14, 2025 Subjective Patient feeling completely back to normal. Denies any nausea or vomiting and is eating well. No abdominal pains or diarrhea. We discussed the importance of not skipping any doses of prednisone at home. Awaiting FNA of left axillary lymphadenopathy today. No other questions or concerns. Says his joint pains are much improved since getting IV steroids. Physical Exam Constitutional: WD/WN, vitals as above Respiratory: normal respiratory effort, lungs clear to auscultation Cardiovascular: RRR, no murmur, no edema Gastrointestinal (Abdomen): normal bowel sounds, soft, nontender, no hepatosplenomegaly Psychiatric: A+Ox3, euthymic affect Results & Data Results & Data Vital Signs (Past 12 Hours) Vital Signs Temp Pulse Resp BP Pulse Ox O2 Del Method 01/17/25 07:08 36.4 C L 91 H 18 159/79 H 98 Room Air Laboratory Results CBC, BMP, LFTs, INR, immunoglobulins, and blood cultures reviewed PG Care Time/CCT Total # of Minutes Spent Total Time Spent with Patient: Total time spent is greater than 50% in coordination of care (as documented) at patient's floor/unit and/or counseling patient: Coding Level of Care Code 06002 SUB INP/OBS CARE 3/50MIN Diagnoses Hyponatremia E87.1 Diarrhea, unspecified type R19.7 Diarrhea type: unspecified type Hypotension I95.9 Anemia D64.9 (2) Diarrhea Diarrhea type: unspecified type Qualified Code(s): R19.7 - Diarrhea, unspecified
--- NOTE | 2025-01-17 15:03 | Ultrasound Report ---
Ultrasound-guided left axillary lymph node FNA INDICATION: Abnormal appearing left axillary lymph node seen on CT chest 12/26/2024 PROCEDURE: Procedure and risks were explained. Informed consent was obtained. A final timeout was com pleted. The left axilla was prepped and draped in a sterile fashion. 1% lidocaine was utilized for sk in anesthesia. Utilizing ultrasound guidance, a 25-gauge needle was advanced into the left axillary lymph node. Ultr asound images were obtained. 2 aspirates were obtained with a 22-gauge spinal needle and one aspirate with a 25-gauge needle and given to the pathologist for review. The needle was removed and Band-Aid applied. The patient tolerated the procedure well. IMPRESSION: Left axillary lymph node FNA as above. Performed, dictated, and signed by Brady Blanco PA-C; to be co-signed by Dr. Edinson Camara. Electronically signed by: Edinson Camara M.D. 01/17/2025 5:58 PM
[2025-01-17] MEDS: amLODIPine BESYLATE 5 MG TAB PO SCH (15:07)
[2025-01-17] MEDS: predniSONE 20 MG TAB PO STA (15:07)
[2025-01-17] MEDS: MELATONIN 3 MG TAB PO PRN (20:49)
--- NOTE | 2025-01-17 22:58 | Electrocardiogram Report ---
Test Reason : Blood Pressure : */* mmHG Vent. Rate : 94 BPM Atrial Rate : * BPM P-R Int : * ms QRS Dur : 80 ms QT Int : 338 ms P-R-T Axes : * -8 96 degrees QTcB Int : 422 ms Atrial fibrillation Nonspecific T wave abnormality Abnormal ECG When compared with ECG of 26-Dec-2024 12:48, No significant change Confirmed by Ochoa Gonzalez ([id number]) on 01/17/2025 10:58:10 PM Referred By: REFERRED SELF Confirmed By: Ochoa Gonzalez
[2025-01-18 07:25] LABS: Eosinophils # (auto) 0.26 K/uL (0.00-0.50); Eosinophils % (auto) 9.3 %; Hematocrit (blood only) 26.4 % (42.0-52.0); Hemoglobin 8.7 g/dl (14.0-18.0); Immature Granulocytes # (auto) 0.04 K/uL (0.01-0.20); Immature Granulocytes % (auto) 1.4 %; Lymphocytes # (auto) 1.01 K/uL (1.20-3.40); Lymphocytes % (auto) 35.9 %; Mean Corpuscular Hemoglobin 26.3 pg (25.0-34.0); Mean Corpuscular Volume 79.8 fL (80.0-100.0); Mean Platelet Volume 9.4 fL (9.4-12.4); Monocytes # (auto) 0.18 K/uL (0.11-0.59); Monocytes % (auto) 6.4 %; Neutrophils # (auto) 1.32 K/uL (1.40-6.50); Platelet Count 377 K/uL (130-400); RDW Coefficient of Variation 16.4 % (11.5-14.5); RDW Standard Deviation 47.8 fL (36.4-46.3); Red Blood Count 3.31 M/uL (4.70-6.10); White Blood Count 2.81 K/ul (4.8-10.8)
[2025-01-18 07:43] LABS: BUN Creatinine Ratio 33.3 (10-20); Calcium 9.2 mg/dl (8.6-10.3); Creatinine Clr Calc Pharmacy 97.7 ml/min; Potassium 3.8 mmol/L (3.5-5.1)
--- NOTE | 2025-01-18 08:45 | Hospitalist Progress Note ---
Date of Service January 18, 2025 Assessment & Plan (1) Hyponatremia: (2) Diarrhea: (3) Hypotension: (4) Anemia: Plan Patient is a 70-year-old male with past medical history of RA on chronic prednisone and Rinvoq, HTN, GERD, A-fib on Eliquis. He was recently hospitalized from 12/26 to 12/28 for diarrhea, HOMERO, and syncope in which his stool PCR was negative and he was given stress dose steroids with improvement. Patient returned to ED due to ongoing severe diarrhea, lower abdominal pain, and weakness and was found to have a sodium of 123. AP CT showed gallbladder distention and stone in neck of gallbladder, however no inflammatory changes. He does have mild elevation of total and direct bilirubin which quickly resolved. He has a chronic elevation of alk phos related likely to ongoing bone marrow issue. #Hyponatremia/Non AG metabolic acidosis-secondary to volume depletion with massive diarrhea from relative adrenal insufficiency-he has been skipping doses of prednisone. Na+ much improved to 134 after large volumes of IV NS and gave one bolus of 3% saline. Ur Osm greater than 100 and Ur Na in the 50s consistent with adrenal insufficiency, but was also clearly hypovolemic on admission.Interestingly his Serum OSM was normal but this may have been checked after administration of normal saline. HCO3 low at 14 with AG only 12 secondary to GI losses and now greatly improved to 20. Diarrhea now resolved and heartburn/nausea resolved with stress dose steroids -Encouraged him to not skip doses of prednisone in the future -stop NaHCO3, bicarbonate back to normal -Convert IV hydrocortisone to p.o. prednisone and taper down to home dose #Diarrhea/heartburn-massive diarrhea as above along with lower abdominal pains and nausea/vomiting with hyponatremia. Pro-Randall elevated to 2.97, Stool PCR and C. diff negative, Respiratory Biofire negative, Lactate negative - afebrile, no leukocytosis . CT A/P shows liquid contents throughout colon (nonspecific diarrheal illness), gallbladder distention, stone in neck of gallbladder measuring 1.6cm . Total bili elevated 1.4, direct bili 0.3 on admission, Alk Phos 230 (chronically elevated), lipase WNL. RUQ US with distended GB and stones but no CBD dilation or acute cholecystitis. LFTs improved except alk phos remains elevated. TSH normal Pt admits to skipping several days of prednisone at times and then takes it as needed for arthritis flares. Appreciate GI eval--> does not think this is IBD or microscopic colitis. Improved with IV steroids-likely adrenal insufficiency, no need for repeat scopes especially as improved quickly and had scopes 17 months ago Rinvoq is actually used to treat IBD so it is not likely a cause of his diarrhea and abd pains, nausea, and hyponatremia---> likely cause is relative adrenal insufficiency CT last admission with bone marrow heterogeneity and sclerotic bone lesions, axillary TANIYA--> concern for bone marrow infiltration with CA vs primary bone marrow issue given anemia and leukopenia. Also, lisinopril was recently resumed and this could cause gut angioedema and GI symptoms---> dcd lisinopril and would NOT restart -Started Protonix 40mg po bid -Discontinue IV Dilaudid as no longer needed -workup for bone marrow issues/CA as below -continue stress dose steroids and wean down to usual prednisone dose -permanently dc lisinopril #Hypotension -volume depleted and with relative adrenal insufficiency, now resolved -continue stress dose steroids but discontinue IV hydrocortisone and start prednisone 20 mg p.o. 1 today then 10 mg daily x 2 days then back to 5 mg daily on 01/20-orders placed #Anemia/leukopenia/thrombocytosis-Hgb 11.6 on admission, microcytic hypochromic; platelet count 536 , now hgb 9.6 (hemodilutional) and platelets normal. Plts high due to iron deficiency and stress response. He denies any gross bleeding from anywhere at home and none seen here. CT during previous admission showed heterogeneous appearance of bone marrow with ill-defined scattered sclerotic foci which have progressed from 2022 exam Labs also showed increased total protein (10.3) and electrophoresis returned as IgG kappa monoclonal antibodies present with faint bands, clinical correlation advised. Alk phos elevated, with anemia, thrombocytosis . PSA was 0.2 in 12/2024. Fe studies here with transferrin sat 14%, ferritin normal but with known inflammatory condition. B12 and folate, TSH all normal Immunoglobulins are actually high consistent with inflammation and not consistent with multiple myeloma. Peripheral smear with no significant abnormalities except leukopenia/lymphopenia Appreciate Bruno/Onc consult -f/u repeat SPEP/SINGH, free light chains when available -plan for bone marrow biopsy Monday after off Eliquis x 3 days-hold ELiquis -order left axillary LN FNA-to be performed on 01/17 #RA-follows with Dr. Kidd for Rheum. Previously on Humira, just started Rinvoq abut 2 months ago. Pt admits to skipping prednisone for several days in a row at times -informed Dr. Kidd of the patient's current condition -Okay to resume Rinvoq-must be brought in from home -on 5mg Prednisone daily-weaning steroids #Recent HOMERO -history of HOMERO 3 weeks ago with admission for dehydration, severe diarrhea . Renal function greatly improved since then- Cr 1.85 on admission and now down to normal. Hyperkalemia resolved. Patient resumed lisinopril roughly 1 week ago after being held for HOMERO. -discontinue lisinopril permanently -avoid NSAIDs -trend BMP #HTN - BPs low on admission, now improved with IVFs and IV hydrocortisone. Blood pressures are now rising -Resume amlodipine at 5 mg daily -Permanently discontinue lisinopril in case of gut angioedema -continue metoprolol - with holding precautions #A fib - continue metoprolol, and continue to HOLD ELiquis for axillary lymph node biopsy and bone marrow biopsy #depression - continue sertraline VTE ppx: SCDs Dispo: continued stay med surg, improving. Can likely discharge to home after bone marrow biopsy on Monday Admission and Anticipated Discharge Date Admission Date: January 14, 2025 Subjective Patient feeling completely back to normal. Denies any nausea or vomiting and is eating well. No abdominal pains or diarrhea. We discussed the importance of not skipping any doses of prednisone at home. Awaiting results of FNA of left axillary lymphadenopathy pt having bone marrow biopsy 01/20/25 Physical Exam Physical Exam: pt is without distress fna site is clean and dry car is regular lungs are clear Results & Data Results & Data Vital Signs (Past 12 Hours) Vital Signs Temp Pulse Resp BP Pulse Ox O2 Del Method 01/18/25 08:16 97.7 F 78 18 148/78 H 98 Room Air Laboratory Results review cbc, anemia review chemistry PG Care Time/CCT Total # of Minutes Spent Total Time Spent with Patient: Total time spent is greater than 50% in coordination of care (as documented) at patient's floor/unit and/or counseling patient: Coding Level of Care Code 00133 SUB INP/OBS CARE 2/35MIN Diagnoses Hyponatremia E87.1 Diarrhea, unspecified type R19.7 Diarrhea type: unspecified type Hypotension I95.9 Anemia D64.9 (2) Diarrhea Diarrhea type: unspecified type Qualified Code(s): R19.7 - Diarrhea, unspecified
[2025-01-18] MEDS: predniSONE 10 MG TABLET PO SCH (09:50)
--- NOTE | 2025-01-19 15:08 | Hospitalist Progress Note ---
Date of Service January 19, 2025 Assessment & Plan (1) Hyponatremia: (2) Diarrhea: (3) Hypotension: (4) Anemia: Plan Patient is a 70-year-old male with past medical history of RA on chronic prednisone and Rinvoq, HTN, GERD, A-fib on Eliquis. He was recently hospitalized from 12/26 to 12/28 for diarrhea, HOMERO, and syncope in which his stool PCR was negative and he was given stress dose steroids with improvement. Patient returned to ED due to ongoing severe diarrhea, lower abdominal pain, and weakness and was found to have a sodium of 123. AP CT showed gallbladder distention and stone in neck of gallbladder, however no inflammatory changes. He does have mild elevation of total and direct bilirubin which quickly resolved. He has a chronic elevation of alk phos related likely to ongoing bone marrow issue. #Hyponatremia/Non AG metabolic acidosis-secondary to volume depletion with massive diarrhea from relative adrenal insufficiency-he has been skipping doses of prednisone. Resolved after large volumes of IV NS and gave one bolus of 3% saline. Diarrhea now resolved and heartburn/nausea resolved with stress dose steroids -Encouraged him to not skip doses of prednisone in the future -stop NaHCO3, bicarbonate back to normal -Converted IV hydrocortisone to p.o. prednisone and taper down to home dose #Diarrhea/heartburn-massive diarrhea as above along with lower abdominal pains and nausea/vomiting with hyponatremia. Pro-Randall elevated to 2.97, Stool PCR and C. diff negative, Respiratory Biofire negative, Lactate negative - afebrile, no leukocytosis . CT A/P shows liquid contents throughout colon (nonspecific diar rheal illness), gallbladder distention, stone in neck of gallbladder measuring 1.6cm, Alk Phos 230 (chronically elevated), lipase WNL. RUQ US with distended GB and stones but no CBD dilation or acute cholecystitis. LFTs improved except alk phos remains elevated. TSH normal Appreciate GI eval--> does not think this is IBD or microscopic colitis. Improved with IV steroids-likely adrenal insufficiency, no need for repeat scopes especially as improved quickly and had scopes 17 months ago Rinvoq is actually used to treat IBD so it is not likely a cause of his diarrhea and abd pains, nausea, and hyponatremia---> likely cause is relative adrenal insufficiency -Started Protonix 40mg po bid -permanently dc lisinopril per GI recommendations #Hypotension -volume depleted and with relative adrenal insufficiency, now resolved -continue stress dose steroids but discontinue IV hydrocortisone and start prednisone 20 mg p.o. 1 today then 10 mg daily x 2 days then back to 5 mg daily on 01/20-orders placed h/o hypertension with treatment Resume amlodipine at 5 mg daily -Permanently discontinue lisinopril in case of gut angioedema -continue metoprolol - with holding precautions #Anemia/leukopenia/thrombocytosis-microcytic hypochromic; CT during previous admission showed heterogeneous appearance of bone marrow with ill-defined scattered sclerotic foci which have progressed from 2022 exam Labs also showed increased total protein (10.3) and electrophoresis returned as IgG kappa monoclonal antibodies present with faint bands, Fe studies here with low iron transferrin sat 14%, ferritin normal but with known inflammatory condition. B12 and folate, TSH all normal Immunoglobulins are actually high consistent with inflammation and not consis tent with multiple myeloma. Peripheral smear with no significant abnormalities except leukopenia/lymphopenia Appreciate Bruno/Onc consult -f/u repeat SPEP/SINGH, free light chains when available -plan for bone marrow biopsy Monday after off Eliquis x 3 days-hold ELiquis -order left axillary LN FNA-to be performed on 01/17 #RA-follows with Dr. Kidd for Rheum. Previously on Humira, just started Rinvoq abut 2 months ago. Pt admits to skipping prednisone for several days in a row at times -informed Dr. Kidd of the patient's current condition -Okay to resume Rinvoq-must be brought in from home -on 5mg Prednisone daily-weaning steroids #Recent HOMERO -resolved #A fib - continue metoprolol, and continue to HOLD ELiquis for axillary lymph node biopsy and bone marrow biopsy #depression - continue sertraline VTE ppx: SCDs Admission and Anticipated Discharge Date Admission Date: January 14, 2025 Subjective Patient feeling completely back to normal. Denies any nausea or vomiting and is eating well. No abdominal pains or diarrhea. We discussed the importance of not discussed improtance of compliance with prednisone at home. Pending results of FNA of left axillary lymphadenopathy pt having bone marrow biopsy 01/20/25 Physical Exam Physical Exam: pt is without distress fna site is clean and dry car is regular lungs are clear Results & Data Results & Data Vital Signs (Past 12 Hours) Vital Signs Temp Pulse Resp BP Pulse Ox O2 Del Method 01/19/25 08:01 97.3 F L 73 18 164/85 H 99 Room Air 01/19/25 08:00 Room Air PG Care Time/CCT Total # of Minutes Spent Total Time Spent with Patient: Total time spent is greater than 50% in coordination of care (as documented) at patient's floor/unit and/or counseling patient: Coding Level of Care Code 10410 SUB INP/OBS CARE 3/50MIN Diagnoses Hyponatremia E87.1 Diarrhea, unspecified type R19.7 Diarrhea type: unspecified type Hypotension I95.9 Anemia D64.9 (2) Diarrhea Diarrhea type: unspecified type Qualified Code(s): R19.7 - Diarrhea, unspecif ied
[2025-01-19] MEDS ORDERED: POLYETHYLENE (MIRALAX) 17 GM PACK PO PRN (17:48)
[2025-01-19 20:04] VITALS: RESP 16
[2025-01-20 08:01] LABS: Basophils # (auto) 0.04 K/uL (0.00-0.20); Basophils % (auto) 0.8 %; Eosinophils # (auto) 0.86 K/uL (0.00-0.50); Eosinophils % (auto) 16.2 %; Hematocrit (blood only) 26.6 % (42.0-52.0); Hemoglobin 8.2 g/dl (14.0-18.0); Immature Granulocytes # (auto) 0.26 K/uL (0.01-0.20); Immature Granulocytes % (auto) 4.9 %; Lymphocytes # (auto) 1.66 K/uL (1.20-3.40); Lymphocytes % (auto) 31.3 %; Mean Corpuscular Hemoglobin 25.3 pg (25.0-34.0); Mean Corpuscular Hgb Conc 30.8 g/dL (32.0-36.0); Mean Corpuscular Volume 82.1 fL (80.0-100.0); Mean Platelet Volume 9.4 fL (9.4-12.4); Monocytes # (auto) 0.46 K/uL (0.11-0.59); Monocytes % (auto) 8.7 %; Neutrophils # (auto) 2.02 K/uL (1.40-6.50); Neutrophils % (auto) 38.1 %; Platelet Count 359 K/uL (130-400); RDW Coefficient of Variation 16.4 % (11.5-14.5); RDW Standard Deviation 48.7 fL (36.4-46.3); Red Blood Count 3.24 M/uL (4.70-6.10)
[2025-01-20 08:02] LABS: Hematocrit (blood only) 25.9 % (42.0-52.0); Hemoglobin 8.2 g/dl (14.0-18.0); Mean Corpuscular Hemoglobin 25.9 pg (25.0-34.0); Mean Corpuscular Hgb Conc 31.7 g/dL (32.0-36.0); Mean Corpuscular Volume 81.7 fL (80.0-100.0); Mean Platelet Volume 9.2 fL (9.4-12.4); Platelet Count 342 K/uL (130-400); RDW Coefficient of Variation 16.4 % (11.5-14.5); RDW Standard Deviation 48.9 fL (36.4-46.3); Red Blood Count 3.17 M/uL (4.70-6.10); White Blood Count 5.01 K/ul (4.8-10.8)
[2025-01-20] MEDS: predniSONE 5 MG TAB PO SCH (08:16)
[2025-01-20 08:23] LABS: BUN Creatinine Ratio 25.9 (10-20); Calcium 8.9 mg/dl (8.6-10.3); Creatinine Clr Calc Pharmacy 86.2 ml/min
[2025-01-20 08:38] LABS: Bone Marrow Smear SLHOLD; Hypersegmented Neutrophils 1+; Polychromasia 1+
[2025-01-20 10:56] VITALS: BP 124/71; PULSE 78; TEMP 98.2; O2SAT 100
--- NOTE | 2025-01-20 12:41 | Discharge Summary ---
Discharge Summary Date of Service January 20, 2025 Principal Dx & Hospital Course #1 = Principal Diagnosis (1) Hyponatremia: (2) Diarrhea: (3) Hypotension: (4) Anemia: Plan This patient is a 70-year-old male with past medical history of RA on chronic prednisone and Rinvoq, HTN, GERD, A-fib on Eliquis. He was recently hospitalized from 12/26 to 12/28 for diarrhea, HOMERO, and syncope in which his stool PCR was negative and he was given stress dose steroids with improvement. Patient returned to ED due to ongoing severe diarrhea, lower abdominal pain, and weakness and was found to have a sodium of 123. CT abdomen/pelvis showed gal lbladder distention and stone in neck of gallbladder, however no inflammatory changes. He does have mild elevation of total and direct bilirubin which quickly resolved. He has a chronic elevation of alk phos related likely to ongoing bone marrow issue. #Hyponatremia/Non AG metabolic acidosis-secondary to volume depletion with massive diarrhea from relative adrenal insufficiency-he has been skipping doses of prednisone at home. Hyponatremia resolved after large volumes of IV NS and gave one bolus of 3% saline. Diarrhea now resolved and heartburn/nausea resolved with stress dose steroids. The metabolic acidosis improved with the diarrhea stopping and replacement sodium bicarbonate tablets -Encouraged him to not skip doses of prednisone in the future -No further need for NaHCO3 tablets -Converted IV hydrocortisone to p.o. prednisone and tapered back down to home dose prior to discharge #Diarrhea/heartburn-massive diarrhea as above along with lower abdominal pains and nausea/vomiting with hyponatremia. Pro-Randall elevated to 2.97, Stool PCR and C. diff negative, Respiratory Biofire negative, Lactate negative - afebrile, no leukocytosis . CT A/P shows liquid contents throughout colon (nonspecific diarrheal illness), gallbladder distention, stone in neck of gallbladder measuring 1.6cm, Alk Phos 230 (chronically elevated), lipase WNL. RUQ US with distended GB and stones but no CBD dilation or acute cholecystitis. LFTs improved except alk phos remains elevated likely secondary to oncologic process. TSH normal Appreciate GI eval--> does not think this is IBD or microscopic colitis. Improved with IV steroids-likely adrenal insufficiency, no need for repeat scopes especially as improved quickly and had scopes 17 months ago Rinvoq is actually used to treat IBD so it is not likely a cause of his diarrhea and abd pains, nausea, and hyponatremia---> likely cause is relative adrenal insufficiency -Started Protonix 40mg po bid and should remain on this after discharge -permanently dc lisinopril per GI recommendations -Given microcytic anemia, still may need EGD and colonoscopy as an outpatient now that he is more stable but await further oncologic workup #Hypotension -volume depleted and with relative adrenal insufficiency, now resolved after stress to steroids and volume resuscitation. Lisinopril was discontinued and amlodipine dose was cut in half during hospitalization. -Continue home prednisone 5 Mg p.o. once daily -Okay to resume home dose of amlodipine 10 mg daily, continue home metoprolol dose 100 Mg p.o. twice daily -Permanently discontinue lisinopril in case of gut angioedema #Anemia/leukopenia/thrombocytosis-microcytic hypochromic; hemoglobin stable at 8. WBC count remained low throughout hospitalization at 2-5. CT during previous admission showed heterogeneous appearance of bone marrow with ill- defined scattered sclerotic foci which have progressed from 2022 exam. Labs also showed increased total protein (10.3) and electrophoresis returned as IgG kappa monoclonal antibodies present with faint bands. Fe studies here with low iron transferrin sat 14%, ferritin normal but with known inflammatory condition. B12 and folate, TSH all normal Immunoglobulins are actually high consistent with inflammation and not consistent with multiple myeloma. Peripheral smear with no significant abnormalities except leukopenia/lymphopenia. Appreciate Heme/Onc consult Suspect MDS -f/u repeat SPEP/SINGH, free light chains when available-pending at time of discharge -He is s/p bone marrow biopsy 01/20 after off Eliquis x 3 days-okay to resume Eliquis after discharge-await results of bone marrow aspirate and [id number] with oncology after discharge -Also s/p left axillary LN FNA performed on [id number] pathology results after discharge with oncology #RA-follows with Dr. Kidd for Rheum. Previously on Humira, just started Rinvoq abut 2 months ago. Pt admits to skipping prednisone for several days in a row at times-informed Dr. Kidd of the patient's current condition -Okay to resume Rinvoq on discharge -Continue on 5mg Prednisone daily #Recent HOMERO -resolved -Permanently discontinued lisinopril #A fib -rate controlled, held Eliquis for 4 days for procedures while in the hospital -Continue metoprolol, and resume Eliquis on discharge #depression -no acute issues -Continue sertraline VTE ppx: SCDs, Eliquis Disposition-stable for discharge to home Notes For Next Care Provider Needs follow-up with hematology/oncology-set up for 02/12/2025 Follow-up on pathology from lymph node biopsy and bone marrow biopsy/aspirate Follow CBC, BMP in 1 to 2 weeks with PCP Consider EGD and colonoscopy given microcytic anemia-can be done as outpatient Medication Changes From Visit Added Protonix 40 Mg p.o. twice daily Discontinued lisinopril Admission HPI Per Admitting Provider Patient is a 70-year-old male with past medical history of rheumatoid arthritis on chronic prednisone, hypertension, GERD, A-fib on Eliquis. He was recently hospitalized from 12/26 to 12/28 for diarrhea, HOMERO, and syncope in which his stool PCR was negative and he was given stress dose steroids. Patient returned to ED due to ongoing diarrhea and weakness and was found to have a sodium of 123. AP CT showed gallbladder distention and stone in neck of gallbladder, however no inflammatory changes. He does have mild elevation of total and direct bilirubin. Of note patient had a similar episode in 2022 where he was admitted for diarrhea, discharged home, and diarrhea returned requiring readmission. He was evaluated by [facility] at this time and a colonoscopy was performed which showed numerous polyps, no ulcerative disease. He was to follow-up with GI as an outpatient. Most recent appointment in 2022 noted symptoms resolved. Patient seen at bedside. He stated on Monday he developed watery diarrhea again with roughly 5-6 episodes a day. He denies any blood in stool. He also has lower abdominal pain. He stated his diarrhea was completely resolved on recent admission after IV steroids. He has not followed with GI since 2022. He denies any sick contacts. Patient denies fever, chills, rhinorrhea, sore throat, cough, sputum production, dyspnea, dyspnea on exertion, chest pain, nausea, vomiting, dysuria, hematuria. He does not use nicotine products or drink alcohol. He denies past history of CAD, DM, previous VTE. He did not take any of his home medications today; Eliquis ordered on admission. He wishes to be full code. Discharge Exam Constitutional WD/WN, vitals as above Respiratory normal respiratory effort, lungs clear to auscultation Cardiovascular RRR, no murmur, no edema Gastrointestinal (Abdomen) normal bowel sounds, soft, nontender, no hepatosplenomegaly Psychiatric A+Ox3, euthymic affect Discharge Plan Discharge Items Patient Disposition: Home - Self-Care Reason For Visit: HYPONATREMIA, DIARRHEA Discharge Diagnosis: Diarrhea and hyponatremia secondary to relative adrenal insufficiency Anemia, leukopenia Lymphadenopathy Condition on Discharge: Good Activity: Resume your previous activity Weightbearing: Full weightbearing Non-emergency contact: Primary Care Provider and Oncologist Call non-emergency contact if: you have any medication questions and your symptoms worsen Follow-up/Referrals: Tali Doe PA-C [Primary Care Provider] - (Please follow-up within 1 to 2 weeks-call for an appointment) Nanette Whitt MD [Physician] - 02/12/25 1:20 pm Diet: Heart Healthy Addtl Attending Provider Instructions: You were admitted with severe diarrhea and low sodium levels secondary to adrenal insufficiency. It is very important that you take your prednisone every day without skipping any doses. If you become ill, your body may need higher doses of steroids-in those cases, you can take prednisone 20 mg daily x 2 days, then 10 mg daily x 2 days, then back to your 5 mg daily and discuss with your brim edge trimmer. Your sodium levels and diarrhea completely resolved. While you are here, you had a biopsy of a lymph node in your left armpit as well as a bone marrow biopsy to determine further why you have abnormalities of your bone marrow on CT scan imaging. You also are anemic. The results of these alli l probably be back within the next week. Please follow-up with the oncologist. If you have any questions about your results before seeing the oncologist, please contact her office. Some of your anemia may be from blood loss from the GI tract. Because of the heartburn you are having, you are placed on Protonix which would also treat esophagitis or gastritis. You may still need an EGD and colonoscopy in the future. Please continue on the Protonix twice daily for now and follow-up with your PCP and/or a fuel cell binder as an outpatient. Because of your history of high potassium levels, acute kidney injury, and the possibility that lisinopril may have contributed to your diarrhea, please do not restart the lisinopril. Pending Studies at Discharge: Yes (Lymph node biopsy, bone marrow biopsy, protein electrophoresis,light chains) Stand-Alone Forms: My [facility], Smoking Cessation Medications and DC Order Prescriptions: New pantoprazole 40 mg Tablet,Delayed Release (Dr/Ec) 40 mg PO BID Qty: 60 0RF Continued Eliquis 5 mg tablet 5 mg PO BID Hold Instructions: May resume the EVENING of 09/15/23. Hold until that time. metoprolol succinate 100 mg tablet extended release 24 hr 100 mg PO BID amlodipine 10 mg tablet 10 mg PO DAILY prednisone 5 mg tablet 5 mg PO DAILY sertraline 50 mg tablet 50 mg PO DAILY Rinvoq 15 mg tablet extended release 24 hr 15 mg PO DAILY Discontinued loperamide 2 mg capsule 2 mg PO Q6H PRN (Reason: loose stool) Qty: 20 0RF lisinopril 40 mg tablet 40 mg PO DAILY Hold Instructions: Provider's Order until followed up with PCP. Discharge Orders: Discharge Order (Routine); Ordered 01/20/25 Ordered By: Saskia Mena Admission Data Admit Date/Time: 01/14/25 22:47 Attending Provider: Saskia Mena Admit Provider: Laura Barajas Primary Care Provider: Tali Doe Other Providers: Arias Bryant; Corona Mejia; Nanette Whitt Hospital Stay Data Consultations 01/14/25 22:21 ED Decision to Admit Stat 01/15/25 16:54 Consult Gastroenterology Routine 01/15/25 16:55 Consult Hematology Routine Diagnostic Imagining Performed 01/14/25 19:28 CT Abd and Pelvis [CT abd pelvis IV con only] Stat 01/15/25 US gallbladder Stat 01/17/25 07:00 IR FNA lymph node US Routine 01/20/25 08:00 IR bone marrow bx & asp Routine Pending Results Patient Have Any Pending Studies at Discharge: Yes (Lymph node biopsy, bone marrow biopsy, protein electrophoresis,light chains) Discharge Instructions Given to Patient (Per Discharging Provider) You were admitted with severe diarrhea and low sodium levels secondary to adrenal insufficiency. It is very important that you take your prednisone every day without skipping any doses. If you become ill, your body may need higher doses of steroids-in those cases, you can take prednisone 20 mg daily x 2 days, then 10 mg daily x 2 days, then back to your 5 mg daily and discuss with your brim edge trimmer. Your sodium levels and diarrhea completely resolved. While you are here, you had a biopsy of a lymph node in your left armpit as well as a bone marrow biopsy to determine further why you have abnormalities of your bone marrow on CT scan imaging. You also are anemic. The results of these will probably be back within the next week. Please follow-up with the oncologist. If you have any questions about your results before seeing the oncologist, please contact her office. Some of your anemia may be from blood loss from the GI tract. Because of the heartburn you are having, you are placed on Protonix which would also treat esophagitis or gastritis. You may still need an EGD and colonoscopy in the future. Please continue on the Protonix twice daily for now and follow-up with your PCP and/or a fuel cell binder as an outpatient. Because of your history of high potassium levels, acute kidney injury, and the possibility that lisinopril may have contributed to your diarrhea, please do not restart the lisinopril. Total Time Total Time Spent Total Time Spent (In Minutes): 35 minutes Total Time Includes: Examination of the Patient, Discharge Planning, Medication Reconciliation and Communication With Other Providers (Oncology) Coding Level of Care Code 77966 INP/OBS DISCH >30 MIN Diagnoses Hyponatremia E87.1 Diarrhea, unspecified type R19.7 Diarrhea type: unspecified type Hypotension I95.9 Anemia D64.9
--- NOTE | 2025-01-20 14:26 | CT Scan Report ---
CT guided bone marrow biopsy INDICATION: Anemia PROCEDURE: Procedure and risks were explained. Informed consent was obtained. A final timeout was com pleted. The patient was placed prone on the CT exam table. The left gluteal region was prepped and dr aped in sterile fashion. 1% lidocaine was utilized for skin anesthesia. Utilizing CT guidance, an 11-gauge bone biopsy needle was advanced into the left iliac bone. Multiple aspirates and one bone core was obtained and given to the lab. The needle was removed and Band-Aid a pplied. The patient tolerated the procedure well. Vital signs will be monitored postprocedure. IMPRESSION: Bone marrow biopsy as above. Performed, dictated, and signed by Brady Blanco PA-C; to be co-signed by Dr. Edinson Camara. Electronically signed by: Edinson Camara M.D. 01/20/2025 2:28 PM
[2025-01-21 07:28] LABS: Albumin 3.5 g/dL (3.8-4.8); Alpha 1 Globulin 0.5 g/dL (0.2-0.3); Alpha 2 Globulin 0.8 g/dL (0.5-0.9); Beta-1-Globulin 0.4 g/dL (0.4-0.6); Beta-2-Globulin 0.5 g/dL (0.2-0.5); Free Kappa 74.8 mg/L (3.3-19.4); Free Lambda 27.7 mg/L (5.7-26.3); Gamma Globulin 1.8 g/dL (0.8-1.7); Monoclonal Protein Band 2 DNR g/dL (NONE DETECTED); Monoclonal Protein Band 3 DNR g/dL (NONE DETECTED); Total Protein 7.6 g/dL (6.1-8.1)
== END 2025-01-20 13:04 | disposition home or self-care (01) | DRG 641 ==
LOC: SUATTDRO → ED 18:29 → SUATTDRO 22:47 → 3W 22:47